=== PATIENT | female | born 1950 | race Caucasian/White ===

== ENCOUNTER 2022-03-22 13:07 | Outpatient (CLI) | payer MEDICARE, BC, SELFPAY ==
--- NOTE | 2022-03-22 17:00 | CRLHL7_ITS ---
For Patients: As a result of the 21st Century Cures Act, medical imaging exams and procedure reports are released immediately into your electronic medical record. You may view this report before your referring provider. If you have questions, please contact your health care provider. EXAM: PET-CT SKULL BASE TO THIGH CLINICAL INFORMATION: 72-yo female with a history of CLL. Suspected multiple myeloma. Patient is referred for further characterization. TECHNIQUE: Radiopharmaceutical: 13.34 mCi of 18F-FDG Uptake time: 55 minutes Blood glucose level at the time of injection: 83 mg/dL Field of view: Skull base to mid-thighs Intravenous contrast: Not administered Oral contrast: Not administered CT protocol: The low-dose, free-breathing, noncontrast CT performed as part of this study is designed for the purposes of attenuation correction and lesion localization, and it is neither sufficient, nor it should be substituted for diagnostic purposes. COMPARISON: PET-CT 01/11/2022 FINDINGS: Physiologic background liver standardized uptake value (SUV mean and SUV max) reported for comparison between PET studies: 2.8 and 3.2. Visualized head and neck: Physiologic uptake in the visualized portions of the brain, extraocular muscles, and salivary glands. Head and neck lymph nodes: Similar bilateral parotid/periparotid lymph nodes and bilateral mid upper cervical chain lymph nodes with variable, mildly decreased overall uptake. For example: -left level 2 lymph node, 0.9 cm short axis, SUV max 2.5. Previously 4.1. -right level 2 lymph node, 0.6 cm short axis, SUV max 3.1. Previously 4.2. Lungs: No new tracer avid pulmonary nodules or abnormal uptake. Dependent atelectasis. Benign calcified right lower lobe nodule. Thoracic lymph nodes: Calcified mediastinal and hilar lymph nodes without significant progression. Similar enlarged bilateral axillary lymph nodes and a small right supraclavicular lymph node with variable uptake. For example: -right supraclavicular lymph node, 0.5 cm short axis, SUV max 3.8 (fused PET-CT image 66). -left axillary lymph node, 1.4 cm short axis, SUV max 4.1. Previously 1.1 cm short axis, SUV max 5.1. -right axillary lymph node, 0.8 cm short axis, SUV max 2.9. Previously SUV max 3.5. -right lateral breast/axillary tail lymph node, 0.7 cm short axis, SUV max 1.9. Previously 0.7 cm, SUV max 3.4. Other chest findings: Scattered coronary vascular and thoracic aortic calcifications. Residual mild lower esophageal uptake is nonspecific, SUV max 3.0. Previously 3.3. Hepatobiliary: No abnormal uptake. Benign parenchymal calcifications. Spleen: No abnormal uptake. Benign parenchymal calcifications. The spleen measures 11.9 x 4.5 x 12.6 cm. Pancreas: No abnormal uptake. Adrenals: Within normal limits. Kidneys and bladder: No abnormal uptake. Unchanged lower pole right renal lesion with no uptake above adjacent cortex, possibly a cyst. Indeterminate. Bowel and peritoneum: No suspicious gastric or small bowel uptake or abnormality. Persistent uptake in the cecum could represent a polyp or avid colon lesion, SUV max 10.2 (fused PET-CT image 236). Previously 11.6. Consider direct visualization. Scattered uptake elsewhere in the adjacent small bowel and ascending colon demonstrates no noncontrast CT abnormality, possibly reactive/inflammatory. Colonic diverticulosis without inflammatory change. Pelvic organs: Prior hysterectomy. No abnormal uptake. Abdominopelvic lymph nodes: Small upper abdominal and upper retroperitoneal lymph nodes demonstrate no significant progression. Borderline common iliac and larger bilateral pelvic/external iliac lymph nodes demonstrate variable uptake. For example: -right common iliac lymph node, 0.9 cm short axis, SUV max 3.0. Previously 3.6. -left external iliac lymph node, 1.2 cm short axis, SUV max 3.4. Previously 3.6. -right external iliac lymph node, 1.2 cm short axis, SUV max 4.2. Previously 6.6. Musculoskeletal, soft tissues, skin: No aggressive osseous, lytic or expansile osseous lesions with abnormal uptake. Degenerative type uptake within the shoulders spine and hips.. -similar generalized uptake throughout the osseous structures of the spine, pelvis, thorax and prox extremities considered nonspecific low suggestive of marrow activation. Other: Scattered aortoiliac atherosclerotic vascular calcifications. IMPRESSION: 1. Avid bilateral cervical, axillary, lower retroperitoneal and bilateral pelvic/external iliac lymph nodes demonstrate [id number] uptake consistent with the given history of CLL. Largest lymph nodes for suitable for biopsy include left axillary region and bilateral external iliac lymph nodes as indicated. 2. Persistent moderately intense uptake in the cecum. Consider follow-up CT scan of the abdomen/pelvis with oral and IV contrast or direct visualization to further characterize this lesion. A small polyp or avid colon lesion is not excluded. 3. Marrow activation with generalized uptake throughout the bony structures with no aggressive, lytic or expansile bone lesions with abnormal uptake. If there is persistent clinical concern, consider MRI of the spine to evaluate marrow signal characteristics and enhancement. 4. Other nonacute findings as detailed in the body of the report. 4 Dictated by Demarco Chin MD @ 03/27/2022 3:52:39 PM (Electronically Signed)
== END 2022-03-22 13:08 | disposition home or self-care (01) ==
LOC: RAD 13:09
PROVIDERS: PCP Physician Assistant; Visit Provider Internal Medicine Hematology & Oncology
DX: R77.9 Abnormality of plasma protein, unspecified (principal)
CPT/HCPCS: 78815; A9552

== ENCOUNTER 2022-03-28 08:04 | Outpatient (RCR) | payer MEDICARE, BC, SELFPAY ==
[2022-03-12 09:55] LABS: Albumin 3.84 g/dL (3.75-5.01); Alpha 1 Globulin 0.46 g/dL (0.19-0.46); Alpha 2 Globulin 0.89 g/dL (0.48-1.05); Total Protein, Serum 7.9 g/dL (6.3-8.2)
--- NOTE | 2022-03-15 10:21 | ONC.NURNOTE ---
Patient in for SPEP and test was found to be concerning for Multiple Myeloma so additional testing ordered by Dr. Croft and patient called with plan. Patient also states she had a colonoscopy and they found 2 tumors that are NOT cancerous and need to be surgically removed. Patient to come in 03/16 for labs and 03/21 for PET with MD follow up hopefully following week.
[2022-03-16 10:53] LABS: Lactate Dehydrogenase* 519 U/L (313-618)
[2022-03-17 16:46] LABS: Beta-2-Microglob Serum/Plasma 6.6 mg/L (<=3.0)
[2022-03-17 23:41] LABS: Kappa Qnt Free Light Chains 17.03 mg/L (3.30-19.40); Kappa-Lambda Qt FLC W/ Ratio 0.06 (0.26-1.65); Lambda Qnt Free Light Chains 288.71 mg/L (5.71-26.30)
[2022-03-22 21:59] LABS: Free Urinary Kappa Excret/Day 41.81 mg/d; Free Urine Kappa Light Chains 43.55 mg/L (0.00-32.90); Hours Collected 24 hr; Total Volume 960 mL
--- NOTE | 2022-03-30 14:23 | ONC.NURNOTE ---
Addendum entered by Onelia Joseph, RN 04/04/22 09:52: Since oncologist is out of the office this week, TIN POURER gave clearance. [facility] was notified. Original Note: [facility] called office to ask if oncologist cleared patient for MAC sedation prior to bone marrow biopsy set up for 04/05. No clearance noted in note from 03/30/2022, remote mortgage underwriter left note for oncologist to see if willing to do this. Patient told [facility] that would be difficult to set up an appointment with primary care for clearance prior to her procedure d/t her schedule. Nursing to let [facility]gica know Dr. Croft's decision Saturday when she is in office.
== END 2022-04-01 23:59 | disposition home or self-care (01) ==
LOC: CCIC 08:04
PROVIDERS: Clinical Nurse Specialist; PCP Physician Assistant; Visit Provider Internal Medicine Hematology & Oncology
DX: C91.10 Chronic lymphocytic leukemia of B-cell type not having achieved remission (principal); D47.2 Monoclonal gammopathy
CPT/HCPCS: 36415; 82232; 83520; 83615; 84156; 84165; 86335; 99213; 99215

== ENCOUNTER 2022-04-05 06:25 | Outpatient (CLI) | payer MEDICARE, BC, SELFPAY ==
[2022-04-05 06:41] VITALS: BMI 25.3
[2022-04-05 06:45] VITALS: BP 152/58; PULSE 61; RESP 16; O2SAT 96
--- NOTE | 2022-04-05 07:42 | W.ANESCHARGE ---
Anesthesia Charges Start Date/Time Anesthesia Start Date: 04/05/22 Anesthesia Start Time: 07:10 Stop Date/Time Anesthesia Stop Date: 04/05/22 Anesthesia Stop Time: 07:40 Summary Emergency: No Extremes of Age: Over 71-CPT [id number]
[2022-04-05 07:45] VITALS: BP 108/66; PULSE 66; RESP 16; O2SAT 98
--- NOTE | 2022-04-05 07:52 | W.ANESCHARGE ---
Anesthesia Charges Start Date/Time Anesthesia Start Date: 04/05/22 Anesthesia Start Time: 07:10 Stop Date/Time Anesthesia Stop Date: 04/05/22 Anesthesia Stop Time: 07:40 Summary Emergency: No
[2022-04-05 07:57] VITALS: BP 121/71; PULSE 61; RESP 16; O2SAT 98
[2022-04-05 07:57] LABS: Basophils Percent Auto 0.4 % (0.0-3.0); Eosinophils Percent Auto 2.1 % (0.0-7.0); Hematocrit 29.1 % (33.0-51.0); Hemoglobin* 9.2 gm/dL (12.0-16.0); Immature Granulocytes Abs Auto 0.03 K/uL (0.00-0.30); Immature Reticulocyte Fraction 12.2 % (3.0-15.9); Lymphocytes Percent Auto 67.6 % (20-44); Mean Corpuscular HGB Conc 32 gm/dL (32-36); Mean Corpuscular Hemoglobin 31 pg (26-34); Mean Corpuscular Volume 97 fL (80-100); Monocytes Percent Auto 5.9 % (0.0-11.0); Neutrophils Percent Auto 23.8 % (42.0-72.0); Platelet Count* 195 K/uL (140-440); RDW Coefficient of Variation % 13.1 % (11.5-15.5); Red Blood Count 2.99 m/uL (4.00-5.20); Reticulocyte Hemoglobin Equivi 30.9 pg (29.0-35.0); Reticulocyte Percent 1.6 % (0.5-2.0); Reticulocytes Absolute 0.05 # (0.03-0.08); White Blood Count* 12.45 K/uL (4.50-11.00)
[2022-04-05 08:28] VITALS: BP 146/76; PULSE 61; RESP 16; O2SAT 98
[2022-04-05 08:44] LABS: Slide Review Reflex Yes
[2022-04-05 08:45] LABS: Slide Review Acceptable Review (Acceptable)
== END 2022-04-05 08:47 | disposition home or self-care (01) ==
PROVIDERS: Surgery; PCP Physician Assistant; Visit Provider Pathology Anatomic Pathology & Clinical Pathology
DX: C91.10 Chronic lymphocytic leukemia of B-cell type not having achieved remission (principal)
CPT/HCPCS: 01112; 36415; 38222; 85025; 85045; 88184; 88185; 88237; 88264; 88271; 88275; 88305; 88311; 88313; 88341; 88342; 88364; 88365; 99100; J1644; J2001; J2704

== ENCOUNTER 2022-04-12 09:22 | Outpatient (CLI) | payer MEDICARE, BC, SELFPAY ==
--- NOTE | 2022-04-12 09:26 | CRLHL7_ITS ---
For Patients: As a result of the Century Cures Act, medical imaging exams and procedure reports are released immediately into your electronic medical record. You may view this report before your referring provider. If you have questions, please contact your health care provider. Technique: Double contrast barium enema performed. Fluoroscopy time 2 minutes 25 seconds. Indication: SIGMOID NARROWING Comparison: CT-PET 03/22/2022. Findings: Lithographic Plate Maker Apprentice image reveals no bowel obstruction. Adequate prep. No obstruction to the flow of contrast. No obstructing lesion. Extensive sigmoid diverticulosis noted with multifocal areas of luminal narrowing, best visualized on the left lateral decubitus film 2. The diverticular disease extends to the left colon. No acute inflammation or fistula. Normal opacification of the remaining colon. Impression: Extensive sigmoid and left colon diverticular disease with areas of luminal narrowing without obstruction. Dictated by Gael Parra MD @ 04/12/2022 11:27:45 AM (Electronically Signed)
== END 2022-04-12 09:23 | disposition home or self-care (01) ==
LOC: RAD 09:24
PROVIDERS: PCP Physician Assistant; Visit Provider Surgery
DX: K56.609 Unspecified intestinal obstruction, unspecified as to partial versus complete obstruction (principal); K57.90 Diverticulosis of intestine, part unspecified, without perforation or abscess without bleeding
CPT/HCPCS: 74280

== ENCOUNTER 2022-05-10 11:02 | Outpatient (CLI) | payer MEDICARE, BC, SELFPAY | END 2022-05-10 11:03 | disposition home or self-care (01) | LOC: OP CLINIC 11:05 | PROVIDERS: PCP Physician Assistant; Visit Provider Surgery | DX: R93.3 Abnormal findings on diagnostic imaging of other parts of digestive tract (principal) | CPT/HCPCS: 45330; J2250; J3010 ==

== ENCOUNTER 2022-05-22 06:08 | Inpatient (IN) | payer MEDICARE, BC, SELFPAY ==
[2022-05-22] VITALS (23 sets, daily range): BP systolic 120–164; BP diastolic 53–81; PULSE 47–97; RESP 14–20; TEMP 35.8–38.2; O2SAT 92–100; BMI 25.2
--- OUTSIDE RECORDS SUMMARY | 2022-05-22 06:12 | XMS_ITS | Encounter Summary ---
:1950 Author Organization [facility] Address [address] [place] [address] Care Team Providers Name Role Phone Unavailable Primary Care Provider Unavailable Encounter Details Date Type Department Care Team Description 04/23/2022 Hospital Encounter Department of Delmis Sotelo M.D., Multip le Myeloma Not Having Achieved Remission (HCC); Laboratory Medicine Ph.D. 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); and Pathology, [address] [place] [address] Tumor Cecum Villous [facility], in [place], [place] [address] [place] [address] [place], [place] (Work) [phone] Social History Tobacco Use Types Packs/Day Years Used Date Smoking Tobacco: Never Sex Assigned at Date Recorded Not on file documented as of this encounter Medications at Time of Discharge Medication Sig Dispensed Refills Start Date End Date whgppwf-lplbtjcmyspfc-xkbu Take 1 tablet by 0 eine (EXCEDRIN MIGRAINE) mouth every 6 (six) 250-250-65 mg per tablet hours as needed for pain. biotin 1 mg tablet Take by mouth daily. 0 cholecalciferol, vitamin Take by mouth. 0 D3, (D3-2000 ORAL) magnesium Take by mouth. 0 B-vpeodt-lgnpctqkycd 42 mg (500 mg)- 250 mg tablet extended release mecobalamin (B12 ACTIVE Take by mouth. 0 ORAL) potassium chloride Take 20 mEq by mouth. 0 (KLOR-CON) 20 mEq packet UNABLE TO FIND Tumeric & Chelle 0 documented as of this encounter Plan of Treatment Not on filedocumented as of this encounter Procedures Procedure Name Priority Date/Time Associated Comments Diagnosis RETICULOCYTE PROFILE, B Routine 04/23/2022 4:35 Leukemia R esults for this PM CDT Lymphocytic Chronic procedur e are in Not Having Achieved the resu lts Remission (HCC) section. MONOCLONAL GAMMOPATHY Routine 04/23/2022 4:35 Multiple Myeloma Results for this DIAGNOSTIC, S PM CDT Not Having Achieved procedu re are in Remission (HCC) the results Leukemia section. 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 HEMATOPATHOLOGY REVIEW Routine 04/23/2022 4:35 Re sults for this PM CDT procedure are i n the results section. MORPHOLOGY EVAL (SPECIAL Routine 04/23/2022 4:35 Results for this SMEAR) PM CDT procedure are i n the results section. CBC NO CALL BACK, REFLEX Routine 04/23/2022 4:35 Multiple Myel moise Results for this T/S PM CDT Not Having Achieved procedur e are in Remission (HCC) the results Leukemia section. 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 IMMUNOGLOBULINS (IGG, Routine 04/23/2022 4:35 Multiple Myeloma Results for this IGA, AND IGM), S PM CDT Not Having Achieved proc edure are in Remission (HCC) the results Leukemia section. 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 CD49D CELL EXPRESSION Routine 04/23/2022 10:02 Re sults for this EVALUATION, VARIES AM CDT procedure are in the results section. documented in this encounter Results Direct Antiglobulin Test (Polyspecific) (04/23/2022 4:35 PM CDT) [facility] Method Time Signature Direct Negative Negative 04/23/2022 DTL Antiglobulin 8:23 PM CDT Test, Polyspecific Comment: If clinical suspicion of Hemolytic Anemi [place], [place] [phone] for more information. Specimen Anatomical Collection Method Collection Time Receive d Time (Source) Location / / Volume Laterality Blood 04/23/2022 4:35 PM 2 5:02 CDT PM CDT Delmis Sotelo M.D., Ph.D. LAB BLOOD BANK TEST ORDERABL ES Performing Organization Address City/[facility] Phon e Number [facility] - [address] [place], [place] [address] [facility] [address] (ABNORMAL) Morphology Evaluation (Special smear) (04/23/2022 4:35 PM CDT) Analysis Performed At Patho logist Time Signature Neutrophilic Segs 34 (L) 50 - 75 % 04/24/2022 [facility] 11:33 AM CDT Lymphocytes 57 (H) 18 - 42 % 04/24/2022 PM 11:33 AM CDT Monocytes 5 2 - 11 % 04/24/2022 [facility] 11:33 AM CDT Eosinophils 3 1 - 3 % 04/24/2022 [facility] 11:33 AM CDT Basophils 1 0 - 2 % 04/24/2022 [facility] 11:33 AM CDT Fragile Cells Slight 04/24/2022 [facility] 11:33 AM CDT Manual Absolute 5.30 1.56 - 04/24/2022 [facility] Neutrophil Count 6.45 11:33 AM CDT x10(9)/L Comment: ----ADDITIONAL INFORMATION---- The manual absolute neutrophil count is derived from a manual differential count and therefore is not exactly comparable to the automated absolute rohit trophil count. Specimen Anatomical Collection Method Collection Time Receive d Time (Source) Location / / Volume Laterality Blood 04/23/2022 4:35 PM 2 4:57 CDT PM CDT Delmis Sotelo M.D., Ph.D. LAB PATHOLOGY/CYTOLOGY ORDER NOEMI Performing Organization Address City/[facility] Code Phon e Number [facility] - [address] [place], [place] [address] [facility] [place] [address] Hematopathology Review (04/23/2022 4:35 PM CDT) Component Value Ref Test Analysis Performed At Patholo gist Range Method Time Signature 04/25/2022 [facility] 2:02 PM CDT Report Graham Robles D.O. M.S. 022 [facility] electronically 2:02 PM CDT signed by I verify that I have examined all relevant slides/materials for the specimen(s) and rendered or confirmed the diagnosis. Interpretation The morphologic and flow cytometric findings support a 04/25/2022 [facility] diagnosis of chronic lymphocytic leukemia (CLL). 2:02 PM CDT Specimen Anatomical Collection Method Collection Time Receive d Time (Source) Location / / Volume Laterality Blood 04/23/2022 4:35 PM 4:57 CDT PM CDT Delmis Sotelo M.D., Ph.D. LAB PATHOLOGY/CYTOLOGY ORDER NOEMI Performing Organization Address City/[facility] Phon e Number [address] [place] [id number] Laboratories-[address] (ABNORMAL) Reticulocyte Profile (04/23/2022 4:35 PM CDT) [facility] Method Time Signature Reticulocytes, B 1.81 0.60 - 04/23/2022 DTL 2.71 % 5:06 PM CDT Absolute 69.0 30.4 - 04/23/2022 DTL Reticulocyte 110.9 5:06 PM CDT x10(9)/L Immature 12.7 3.0 - 04/23/2022 DTL Reticulocyte 15.9 % 5:06 PM CDT Fraction Reticulocyte 33.4 30.0 - 04/23/2022 DTL Hemoglobin 37.6 pg 5:06 PM CDT Erythrocytes 3.81 (L) 3.92 - 04/23/2022 DTL 5.13 5:06 PM CDT x10(12)/L Specimen Anatomical Collection Method Collection Time Receive d Time (Source) Location / / Volume Laterality Blood (Blood, 04/23/2022 4:35 PM 04/23/20 4:57 Venous) CDT PM CDT Delmis Sotelo M.D., Ph.D. LAB BLOOD ADD-ON Performing Organization Address City/[facility] Phon e Number [facility] - [address] [place] [address] [facility] [address] Laboratories-[facility] 200 [facility] Direct Antiglobulin Test (Poly) (04/23/2022 4:35 PM CDT) [facility] Method Time Signature Direct See Addl Negative 04/23/2022 ET Antiglobulin Testing 8:23 PM CDT Test, Polyspecific Specimen Anatomical Collection Method Collection Time Receive d Time (Source) Location / / Volume Laterality Blood (Blood, 04/23/2022 4:35 PM 04/23/20 5:02 Venous) CDT PM CDT Delmis Sotelo M.D., Ph.D. LAB BLOOD BANK TEST ORDERABL ES Performing Organization Address City/[facility] Phon e Number [address] [address] [facility] [place] [address] Laboratories-[facility] 200 [facility] (ABNORMAL) Immunoglobulins (IgG, IgA, and IgM) (04/23/2022 4:35 PM CDT) [facility] Method Time Signature Immunoglobulin A 32 (L) 61 - 356 04/24/2022 [facility] (IgA), S mg/dL 9:28 AM CDT Immunoglobulin M 5 (L) 37 - 286 04/24/2022 [facility] (IgM), S mg/dL 10:46 AM CDT Immunoglobulin G 2620 (H) 767 - 04/24/2022 [facility] (IgG), S 1590 10:46 AM CDT mg/dL Specimen Anatomical Collection Method Collection Time Receive d Time (Source) Location / / Volume Laterality Blood (Blood, 04/23/2022 4:35 PM 04/24/20 7:04 Venous) CDT AM CDT Delmis Sotelo M.D., Ph.D. LAB BLOOD ADD-ON Performing Organization Address City/State/ZIP Code Phon e Number [facility] [address] [place] [address] [facility] [place] [address] Laboratory Medicine and Pathology [address] GARCIA Uric Acid (04/23/2022 4:35 PM CDT) athologist Signature Uric Acid, S 5.9 2.7 - 6.1 04/23/2022 DTL mg/dL 5:39 PM CDT Specimen Anatomical Collection Method Collection Time Receive d Time (Source) Location / / Volume Laterality Blood (Blood, 04/23/2022 4:35 PM 04/23/20 5:21 Venous) CDT PM CDT Delmis Sotelo M.D., Ph.D. LAB BLOOD ADD-ON Performing Organization Address City/State/ZIP Code Phon e Number [facility] - [address] [place], [place] [address] [place] [address] [facility] Sodium (04/23/2022 4:35 PM CDT) P athologist Signature Sodium, S 138 135 - 145 04/23/2022 5:39 DTL mmol/L PM CDT Specimen Anatomical Collection Method Collection Time Receive d Time (Source) Location / / Volume Laterality Blood (Blood, 04/23/2022 4:35 PM 04/23/20 5:21 Venous) CDT PM CDT Delmis Sotelo M.D., Ph.D. LAB BLOOD ADD-ON Performing Organization Address City/[facility]/ZIP Code Phon e Number [facility] [address] [place], [place] [address] [place] [address] Potassium (04/23/2022 4:35 PM CDT) P athologist Signature Potassium, S 4.5 3.6 - 5.2 04/23/2022 DTL mmol/L 5:39 PM CDT Specimen Anatomical Collection Method Collection Time Receive d Time (Source) Location / / Volume Laterality Blood (Blood, 04/23/2022 4:35 PM 04/23/20 5:21 Venous) CDT PM CDT Delmis Sotelo M.D., Ph.D. LAB BLOOD ADD-ON Performing Organization Address City/State/ZIP Code Phon e Number [facility] - [address] [place], [place] [address] [facility] [address] [facility] [address] [facility] Plasma Cell Assessment (04/23/2022 4:35 PM CDT) Component Value Ref Test Analysis Performed At Patholo gist Range Method Time Signature Blood Plasma Cell No monotypic 04/24/2022 DTL Light Chain plasma cells 12:23 PM CDT PC Event No monotypic plasma cells id entified. ??Previous therapy targeting plasma cell 04/24/2022 DTL Interpretation antigens can interfere with this assay's performance. 12:23 PM CDT Monotypic kappa B cells are also present. Reviewed by: Graham Robles D.O., M.S. Comment: ----ADDITIONAL INFORMATION---- Plasma cell analysis was performed with antibodies to the following antigens: CD19, CD38, CD45, CD138 and kappa and la mbda cytoplasmic immunoglobulin light chains. ?? This test was developed using an analyte specific reagent. Its performance characteristics were determined by [facility] in a manner consistent with CLIA requirements. This test has not bee n cleared or approved by the U.S. Food and Drug Administration. Specimen Anatomical Collection Method Collection Time Receive d Time (Source) Location / / Volume Laterality Blood (Blood, 04/23/2022 4:35 PM 04/23/20 22 5:20 Venous) CDT PM CDT Narrative This result has an attachment that is no t available. Delmis Sotelo M.D., Ph.D. LAB BLOOD NON ADD-ON Performing Organization Address City/[facility]/ZIP Code Phon e Number [facility] - [address] [address] [facility] [address] [facility] (ABNORMAL) Phosphorus Inorganic (04/23/2022 4:35 PM CDT) P athologist Signature Phosphorus 4.9 (H) 2.5 - 4.5 04/23/2022 DTL (Inorganic), S mg/dL 5:39 PM CDT Specimen Anatomical Collection Method Collection Time Receive d Time (Source) Location / / Volume Laterality Blood (Blood, 04/23/2022 4:35 PM 04/23/20 22 5:21 Venous) CDT PM CDT Delmis Sotelo M.D., Ph.D. LAB BLOOD ADD-ON Performing Organization Address City/[facility]/ZIP Code Phon e Number [facility] - [address] [place] [address] Laboratories-[facility] [address] (ABNORMAL) Monoclonal Gammopathy Diagnostic (04/23/2022 4:35 PM CDT) Component Value Ref Range Test Analysis Performed Pathologis t Method Time At Signature Therapeutic No 04/24/2022 [facility] Antibody 6:42 AM CDT Administered? Total Protein, 8.0 (H) 6.3 - 7.9 04/24/2022 [facility] S g/dL 7:52 AM CDT Renova Free 1.16 0.3300 - 04/24/2022 [facility] Light Chain, S 1.94 mg/dL 12:25 PM CDT Lambda Free 17.7 (H) 0.5700 - 04/24/2022 [facility] Light Chain, S 2.63 mg/dL 12:40 PM CDT Renova/Lambda 0.0655 (L) 0.2600 - 04/24/2022 [facility] FLC Ratio 1.65 12:40 PM CDT Albumin 3.5 3.4 - 4.7 04/24/2022 [facility] g/dL 10:49 PM CDT Alpha-1 0.3 0.1 - 0.3 04/24/2022 [facility] Globulin g/dL 10:49 PM CDT Alpha-2 1.1 (H) 0.6 - 1.0 04/24/2022 [facility] Globulin g/dL 10:49 PM CDT Beta-Globulin 1.0 0.7 - 1.2 04/24/2022 [facility] g/dL 10:49 PM CDT Gamma-Globulin 2.1 (H) 0.6 - 1.6 04/24/2022 [facility] g/dL 10:49 PM CDT A/G Ratio 0.79 04/24/2022 [facility] 10:49 PM CDT M spike 1.9 (H) g/dL 04/24/2022 [facility] 10:49 PM CDT Impression M-spike in gamma fraction. 04/24/2022 S [facility] 10:49 PM See Isotype. CDT Flag, Positive (A) Negative 04/25/2022 [facility] M-protein 9:08 AM CDT Isotype M-protein IgG lambda, monoclonal. ~C/W MGUS, myeloma, amyloidosis, etc. ~For MGUS patients the following risk estimates apply: IF YOUR PATIENT IS DIAGNOSED WITH MGUS, there is approximately a 2% per year risk of progression to myeloma or related malignancy. 04/25/2022 [facility] Isotype ~Suggest 24-hr urine Monoclonal Protein Studies. 9:08 AM CDT MALDI-TOF MS Comment: ----ADDITIONAL INFORMATION---- The submitted sample was assayed by five separate immunopurifications for IgG, IgA, IgM, kappa and lambda. ??The r esult reflects the findings of either no monoclonal protein detected or those monoclonal immunoglobulins that were detected. This test was developed and its performa nce characteristics determined by [facility] in a manner consistent with CLIA requirements. This test has not been cleared or approved by the U.S. Savi d and Drug Administration. Specimen Anatomical Collection Method Collection Time Receive d Time (Source) Location / / Volume Laterality Blood (Blood, 04/23/2022 4:35 PM 04/24/20 6:40 Venous) CDT AM CDT Narrative [facility] SUPPORT JENNIFER R - 04/25/2022 9:08 AM CDT Specimen Information: Specimen ID: [id number] Specimen Type: Blood Specimen Collection Start Date: 04/23/20 ??4:35 PM Specimen Received Date: 04/24/2022 ??6:4 0 AM Specimen ID: [id number] Specimen Type: Blood Specimen Collection Start Date: 04/23/20 ??4:35 PM Specimen Received Date: 04/24/2022 ??6:4 2 AM Delmis Sotelo M.D., Ph.D. LAB BLOOD ADD-ON Performing Organization Address City/State/ZIP Code Phon e Number [facility] [address] GARC[place], [place] [address] [place] [address] Laboratory Medicine and Pathology [address] [place] [address] Dr. RADHA MCCOY (Lactate Dehydrogenase) (04/23/2022 4:35 PM CDT) Analysis Performed At Patho logist Time Signature Lactate 215 122 - 222 04/23/2022 DTL Dehydrogenase U/L 5:39 PM CDT (LD), S Specimen Anatomical Collection Method Collection Time Receive d Time (Source) Location / / Volume Laterality Blood (Blood, 04/23/2022 4:35 PM 04/23/20 5:21 Venous) CDT PM CDT Delmis Sotelo M.D., Ph.D. LAB BLOOD NON ADD-ON Performing Organization Address City/[facility] Phon e Number [facility] - [address] [place], [place] [address] [place] [address] [place] [address] Laboratories-[address] Glucose, Fasting (04/23/2022 4:35 PM CDT) P athologist Signature Glucose, P 92 70 - 100 04/23/2022 DTL mg/dL 5:35 PM CDT Last Intake 22 hr 04/23/2022 DTL 5:18 PM CDT Specimen Anatomical Collection Method Collection Time Receive d Time (Source) Location / / Volume Laterality Blood (Blood, 04/23/2022 4:35 PM 04/23/20 5:18 Venous) CDT PM CDT Delmis Sotelo M.D., Ph.D. LAB BLOOD NON ADD-ON Performing Organization Address City/[facility] Phon e Number [facility] - [address] [place], [place] [address] [place] [address] Laboratories-[address] (ABNORMAL) Creatinine with Estimated GFR (04/23/2022 4:35 PM CDT) Analysis Performed At Patho logist Time Signature Creatinine 1.22 (H) 0.59 - 04/23/2022 DTL 1.04 mg/dL 5:39 PM CDT eGFR-Non 45 (L) >=60 04/23/2022 DTL Black/ mL/min/BSA 5:39 PM CDT [place]ian Comment: ----ADDITIONAL INFORMATION---- Estimated GFR calculated using the 2009 CKD_EPI creatinine equation. eGFR-Black/ 52 (L) >=60 mL/min/BSA 2021 5:39 PM CDT DTL Comment: ----ADDITIONAL INFORMATION---- Estimated GFR calculated using the 2009 CKD_EPI creatinine equation. Specimen Anatomical Collection Method Collection Time Receive d Time (Source) Location / / Volume Laterality Blood (Blood, 04/23/2022 4:35 PM 04/23/20 5:21 Venous) CDT PM CDT Delmis Sotelo M.D., Ph.D. LAB BLOOD ADD-ON Performing Organization Address City/[facility] Phon e Number [facility] - [address] CRP (C-Reactive Protein) (04/23/2022 4:35 PM CDT) P athologist Signature C-Reactive 7.4 <=8.0 mg/L 04/23/2022 DTL Protein (CRP), 5:39 PM CDT S Specimen Anatomical Collection Method Collection Time Receive d Time (Source) Location / / Volume Laterality Blood (Blood, 04/23/2022 4:35 PM 04/23/20 5:21 Venous) CDT PM CDT Delmis Sotelo M.D., Ph.D. LAB BLOOD ADD-ON Performing Organization Address [facility] Phon e Number [facility] - [address] (ABNORMAL) CBC no call back, reflex T/S HGB <8 (04/23/2022 4:35 PM CDT) Patholo gist Method Time Signature Hemoglobin 11.6 11.6 - 04/23/2022 DTL 15.0 g/dL 5:06 PM CDT Hematocrit 37.4 35.5 - 04/23/2022 DTL 44.9 % 5:06 PM CDT Erythrocytes 3.81 (L) 3.92 - 04/23/2022 DTL 5.13 5:06 PM CDT x10(12)/L MCV 98.2 (H) 78.2 - 04/23/2022 DTL 97.9 fL 5:06 PM CDT RBC Distrib 12.8 12.2 - 04/23/2022 DTL Width 16.1 % 5:06 PM CDT Platelet Count 261 157 - 371 04/23/2022 DTL x10(9)/L 5:06 PM CDT Leukocytes 15.6 (H) 3.4 - 9.6 04/23/2022 DTL x10(9)/L 5:06 PM CDT Neutrophils SeeComment 1.56 - 04/23/2022 DTL 6.45 6:17 PM CDT x10(9)/L Comment: Auto-diff results not valid. Se e manual differential. Specimen Anatomical Collection Method Collection Time Receive d Time (Source) Location / / Volume Laterality Blood (Blood, 04/23/2022 4:35 PM 04/23/20 4:57 Venous) CDT PM CDT Delmis Sotelo M.D., Ph.D. LAB BLOOD NON ADD-ON Performing Organization Address City/[facility] Phon e Number [facility] [address] Calcium, Total (04/23/2022 4:35 PM CDT) athologist Signature Calcium, Total, 10.1 8.8 - 10.2 04/23/2022 DTL S mg/dL 5:39 PM CDT Specimen Anatomical Collection Method Collection Time Receive d Time (Source) Location / / Volume Laterality Blood (Blood, 04/23/2022 4:35 PM 04/23/20 5:21 Venous) CDT PM CDT Delmis Sotelo M.D., Ph.D. LAB BLOOD ADD-ON Performing Organization Address City/[facility]/ZIP Code Phon e Number [facility] 200 [place], [place] [address] [place] [id number] [place] [address] (ABNORMAL) BUN (Blood Urea Nitrogen) (04/23/2022 4:35 PM CDT) P athologist Signature BUN (Blood Urea 27 (H) 6 - 21 04/23/2022 DTL Nitrogen), S mg/dL 5:39 PM CDT Specimen Anatomical Collection Method Collection Time Receive d Time (Source) Location / / Volume Laterality Blood (Blood, 04/23/2022 4:35 PM 04/23/20 5:21 Venous) CDT PM CDT Delmis Sotelo M.D., Ph.D. LAB BLOOD ADD-ON Performing Organization Address City/[facility]/ZIP Code Phon e Number [facility] - 200 [place], [place] [address] [place] [address] Bilirubin, Total (04/23/2022 4:35 PM CDT) athologist Signature Bilirubin, 0.4 <=1.2 mg/dL 04/23/2022 DTL Total, S 5:39 PM CDT Specimen Anatomical Collection Method Collection Time Receive d Time (Source) Location / / Volume Laterality Blood (Blood, 04/23/2022 4:35 PM 04/23/20 5:21 Venous) CDT PM CDT Delmis Sotelo M.D., Ph.D. LAB BLOOD ADD-ON Performing Organization Address City/[facility]/ZIP Code Phon e Number [facility] - [address] Bilirubin, Direct (04/23/2022 4:35 PM CDT) athologist Signature Bilirubin, <0.2 0.0 - 0.3 04/23/2022 DTL Direct, S mg/dL 5:39 PM CDT Specimen Anatomical Collection Method Collection Time Receive d Time (Source) Location / / Volume Laterality Blood (Blood, 04/23/2022 4:35 PM 04/23/20 5:21 Venous) CDT PM CDT Delmis Sotelo M.D., Ph.D. LAB BLOOD ADD-ON Performing Organization Address City/State/ZIP Code Phon e Number [facility] - 200 [place], [place] [address] Bicarbonate (04/23/2022 4:35 PM CDT) athologist Signature Bicarbonate, S 24 22 - 29 04/23/2022 DTL mmol/L 5:39 PM CDT Specimen Anatomical Collection Method Collection Time Receive d Time (Source) Location / / Volume Laterality Blood (Blood, 04/23/2022 4:35 PM 04/23/20 5:21 Venous) CDT PM CDT Delmis Sotelo M.D., Ph.D. LAB BLOOD ADD-ON Performing Organization Address City/[facility]/ZIP Code Phon e Number [facility] - [address] [place], [place] [address] [place] [address] [facility] [address] [facility] (ABNORMAL) Scpe-3-Dxgklohpsfhac (Beta-2-M) (04/23/2022 4:35 PM CDT) athologist Signature Cxhf-9-Tbwedie 5.70 (H) 1.21 - 04/24/2022 [facility] obulin, S 2.70 8:31 AM CDT mcg/mL Specimen Anatomical Collection Method Collection Time Receive d Time (Source) Location / / Volume Laterality Blood (Blood, 04/23/2022 4:35 PM 04/24/20 7:04 Venous) CDT AM CDT Delmis Sotelo M.D., Ph.D. LAB BLOOD ADD-ON Performing Organization Address City/[facility]/ZIP Code Phon e Number [facility] [address] [place], [place] [address] [facility] [place] [address] Laboratory Medicine and Pathology [address] [place] AST (Aspartate Aminotransferase) (04/23/2022 4:35 PM CDT) [facility] gist Method Time Signature Aspartate 26 8 - 43 04/23/2022 DTL Aminotransferase U/L 5:39 PM CDT (AST), S Specimen Anatomical Collection Method Collection Time Receive d Time (Source) Location / / Volume Laterality Blood (Blood, 04/23/2022 4:35 PM 04/23/20 5:21 Venous) CDT PM CDT Delmis Sotelo M.D., Ph.D. LAB BLOOD ADD-ON Performing Organization Address City/[facility]/ZIP Code Phon e Number [facility] - [address] [place], [place] [address] [place] [address] [facility] [address] [facility] Alkaline Phosphatase (04/23/2022 4:35 PM CDT) P athologist Signature Alkaline 67 35 - 104 04/23/2022 DTL Phosphatase, S U/L 5:39 PM CDT Specimen Anatomical Collection Method Collection Time Receive d Time (Source) Location / / Volume Laterality Blood (Blood, 04/23/2022 4:35 PM 04/23/20 5:21 Venous) CDT PM CDT Delmis Sotelo M.D., Ph.D. LAB BLOOD ADD-ON Performing Organization Address City/[facility]/ZIP [facility] Phon e Number [facility] - [address] [place], [place] [address] [facility] [address] [facility] [address] (ABNORMAL) 25-Hydroxyvitamin D2 and D3 (04/23/2022 4:35 PM CDT) athologist [facility] 25-Hydroxy D2 <4.0 ng/mL 04/24/2022 SDS 10:10 PM CDT 25-Hydroxy D3 88 ng/mL 04/24/2022 SDSC 10:10 PM CDT 25-Hydroxy D 88 (H) ng/mL 04/24/2022 [facility] Total 10:10 PM CDT Comment: Interpretation: >80 ng/mL (toxicity poss ible) ----REFERENCE VALUE---- 25-HYDROXY D TOTAL (D2+D3) Optimum level s in the healthy population are 20-50, patients with bone disease may benefit from higher levels within this r karla. ----ADDITIONAL INFORMATION---- This test was developed and its performa nce characteristics determined by [facility] in a manner consistent with CLIA requirements. This test has not been cleared or approved by the U.S. Savi d and Drug Administration. Specimen Anatomical Collection Method Collection Time Receive d Time (Source) Location / / Volume Laterality Blood (Blood, 04/23/2022 4:35 PM 04/24/20 7:42 Venous) CDT AM CDT Delmis Sotelo M.D., Ph.D. LAB BLOOD ADD-ON Performing Organization Address City/[facility] Phon e Number [facility] [address] [place], [place] [address] [facility] [place] [address] Laboratory Medicine and Pathology [address] [place] Leukemia/Lymphoma Immunophenotyping by Flow Cytometry, Blood (04/23/2022 4:30 PM CDT) Component Value Ref Test Analysis Performed Pathologis t Range Method Time At [facility] LCMSB Result Performed 04/25/2022 DTL 1:55 PM CDT Final These results are considered preliminary and require complete integration 04/25/2022 DTL Diagnosis: with the current pathology c ase [id number] for final interpretation. ??The 1:55 PM result should NOT be interpreted in isolation for the purposes of diagnosis CDT or clinical management. Peripheral blood, flow cytometric immunophenotypin. Chronic lymphocytic leukemia, kappa light chain restricte d. 2. A minute lambda light chain restricted B-cell popul ation is detected that represents approximately 3% of the total analyzed even ts. ??The significance of this finding is uncertain. ??It does not necessaril y indicate involvement by a lymphoproliferative disorder. Reviewed by: Graham Robles D.O., M.S. Special WBC: ??15.6 x 10(9)/L 04/25/2022 DTL Studies: %Lymphs (CBC/automated differential): ??57% 1:55 PM #Lymphs (CBC/automated differential): ??8.9 x 10(9)/L CDT Results: Blasts: ??Not increased by CD45/side scatter and CD34. B-cells: ??Two monotypic B-cell populations are present. Population 1: ??Monotypic (cytoplasmic) kappa Express: ??CD19, CD20 (dim), CD22, CD5, CD23, CD200. Do not express: ??CD10, CD38, CD11c, CD103. Estimated size: ??74% gated lymphoid events; 47% total jigar zed events Absolute clonal B-cell count (calculated): ??6.6 x 10(9)/L Population 2: ??Monotypic (cytoplasmic) lambda Express: ??CD19, CD20, CD22, CD200. Do not express: ??CD5, CD10, CD23, CD38, CD11c, CD103. Estimated size: ??4% gated lymphoid events; 3% total analyze d events B-cell markers tested: B-cell panel: CD5, CD11c, CD19, CD20, CD22, CD23, CD38, CD45, CD103, CD200 and kappa and lambda surface light chains. Cytoplasmic kappa and lambda immunoglobulin ligh t chains. Triage panel: CD10, CD19, CD45 and kappa and lambda surface light chains. T-cells/NK-cells: ??No aberrant phenotype by CD3 and CD16. Quality Assessment: ??Specimen received within validated jessica delines. Microscopic A Xgtraa-Jdlyyr-vbqkpyf slid e prepared from the flow cytometry specimen is 04/25/2022 DTL Description examined. ??The specimen con tains small lymphocytes with round nuclear 1:55 PM contours, coarsely clumped chromatin and inconspicuous nucle artem. CDT Comment: ----ADDITIONAL INFORMATION---- This test was developed using an analyte specific reagent. Its performance characteristics were determined by [facility] in a manner consistent with CLIA requirements. This test has not bee n cleared or approved by the U.S. Food and Drug Administration. Specimen Anatomical Collection Method Collection Time Receive d Time (Source) Location / / Volume Laterality Blood 04/23/2022 4:30 PM 2 CDT 12:10 PM CDT Narrative This result has an attachment that is no t available. Delmis Sotelo M.D., Ph.D. LAB GENETIC TESTING Performing Organization Address City/State/[facility] Code Phon e Number [facility] - [address] [place] [address] [facility] [address] [facility] 200 [facility] CD49d Cell Expression Evaluation, V (04/23/2022 10:02 AM CDT) [facility] Method Time Signature CEE49 Result Performed 04/25/2022 DT 1:55 PM CDT CEE49 Final Peripheral blood, ??flow cytometric immunophenotypin04/25/2022 DT Diagnosis 1:55 PM CDT CD49d is ??not expressed ??( 8 %) on FS39-yippep ve B cells (30% is the cutoff used for positivity). Cell Expression Evaluation panel: CD3, CD19, CD45 and CD49d. Reviewed by: ??Graham Reina.Emilee., M.S. Comment: ----ADDITIONAL INFORMATION---- This test was developed using an analyte specific reagent. Its performance characteristics were determined by [facility] in a manner consistent with CLIA requirements. This test has not bee n cleared or approved by the U.S. Food and Drug Administration. Specimen Anatomical Collection Method Collection Time Receive d Time (Source) Location / / Volume Laterality Varies 04/23/2022 10:02 04/25/2022 AM CDT 10:02 AM CDT Narrative This result has an attachment that is no t available. Delmis Sotelo M.D., Ph.D. 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
--- OUTSIDE RECORDS SUMMARY | 2022-05-22 06:12 | XMS_ITS | Encounter Summary ---
:1950 Author Organization [facility] Address [address] [place] [address] Care Team Providers Name Role Phone Unavailable Primary Care Provider Unavailable Reason for Visit Outpatient (Routine) - Closed Specialty Diagnoses / Procedures Referred By Contact Refer red To Contact Colon and Rectal Diagnoses Multiple Myeloma Not Having Achieved Remission (HCC) Delmis Sotelo M.D., Ph.D. [facility] Procedures Colon and Rectal Surgery - Rectal cancer eConsult [address] [place] [phone] Referral ID Status Reason Start Date Expiration Date Visits Requ ested Visits Authorized [id number] Closed 04/26/2022 04/26/2023 1 1 Encounter Details Date Type Department Care Team Description 04/30/2022 Internal E-Consult Division of Panfilo Kelly Myeloma Not and Rectal Surgery Autumn Chirinos, Ch.B., Having Achieved in [facility] Remission (HCC) [address] [place] [phone] Social History Tobacco Use Types Packs/Day Years Used Date Smoking Tobacco: Never Sex Assigned at Date Recorded Not on file documented as of this encounter Plan of Treatment Not on filedocumented as of this encounter Visit Diagnoses Diagnosis Multiple Myeloma Not Having Achieved Rem ission (HCC) documented in this encounter
--- OUTSIDE RECORDS SUMMARY | 2022-05-22 06:12 | XMS_ITS | Encounter Summary ---
:1950 Author Organization [facility] Address [address] [place] [address] Care Team Providers Name Role Phone Unavailable Primary Care Provider Unavailable Encounter Details Date Type Department Care Team Description 04/23/2022 Hospital Encounter Department of Delmis Sotelo M.D., Multip le Myeloma Not Having Achieved Remission (HCC); Laboratory Medicine Ph.D. 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); and Pathology, [address] [place] [address] Tumor Cecum Villous [facility] in [place], [place] [phone] [place] [address] [place], [place] (Work) [phone] Social History Tobacco Use Types Packs/Day Years Used Date Smoking Tobacco: Never Sex Assigned at Date Recorded Not on file documented as of this encounter Medications at Time of Discharge Medication Sig Dispensed Refills Start Date End Date zdisjyu-rrqvehbzybeiq-qfkr Take 1 tablet by 0 eine (EXCEDRIN MIGRAINE) mouth every 6 (six) 250-250-65 mg per tablet hours as needed for pain. biotin 1 mg tablet Take by mouth daily. 0 cholecalciferol, vitamin Take by mouth. 0 D3, (D3-2000 ORAL) magnesium Take by mouth. 0 P-ggxyht-gmgzjscyisk 42 mg (500 mg)- 250 mg tablet extended release mecobalamin (B12 ACTIVE Take by mouth. 0 ORAL) potassium chloride Take 20 mEq by mouth. 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
--- OUTSIDE RECORDS SUMMARY | 2022-05-22 06:12 | XMS_ITS | Encounter Summary ---
:[address] [facility] Address [address] [place] [address] Care Team Providers Name Role Phone Unavailable Primary Care Provider Unavailable Reason for Referral Outpatient (Routine) - Closed Specialty Diagnoses / Procedures Referred By Contact Refer red To Contact Colon and Rectal Diagnoses Multiple Myeloma Not Having Achieved Remission (HCC) Delmis Sotelo M.D., Ph.D. 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
--- OUTSIDE RECORDS SUMMARY | 2022-05-22 06:12 | XMS_ITS | Clinical Summary ---
:1950 Author Organization [employer] [place] [address] Care Team Providers Name Role Phone Monica Santos Primary Care Provider Allergies Active Allergy Reactions Severity Noted Date Comments Adhesive Other - Describe In 04/02/2022 Takes to p layer of Tape-Silicones Comment Field skin off Losartan Dizziness 06/11/2014 Medications Medication Sig Dispensed Refills Start Date End Date Status potassium chloride Take one tab 90 Tablet 0 07/06/2021 Active (KLOR-CON M20) 20 by mouth once mEq daily when Extended-Release having tabletIndications: diarrhea with Hypokalemia colitis flare. atorvastatin Take 1 Tablet 90 Tablet 3 07/06/2021 Di scontinued (LIPITOR) 40 mg (40 mg) by 2 (*A llergic/Adver tabletIndications: mouth at s e Rxn/Side Hyperlipidemia, bedtime. Effe cts) unspecified hyperlipidemia type sertraline (ZOLOFT) Take 1 Tablet 90 Tablet 3 07/06/202105/11 Discontinued 100 mg (100 mg) by 2 (*Patien t states tabletIndications: mouth once no longer Moderate episode of daily. taking/Not on recurrent major send ing facility depressive disorder list) (HC), Generalized anxiety disorder triamterene-hydroch Take 1 Tablet 90 Tablet 3 07/06/202105/11 Discontinued lorothiazide, by mouth 2 (*Chris rgic/Adver 37.5-25 mg, every se Rxn/S rosemary (MAXZIDE-25) morning. Effects ) 37.5-25 mg tabletIndications: HTN (hypertension) Active Problems Problem Noted Date Colon polyp 03/09/2022 Overview: Colonoscopy 03/2022 large adenomatous hig h-grade dysplasia mass filling the cecum, biopsies show collagenous colitis, recommend surgical resection of cecal tumor CLL (chronic lymphocytic leukemia) 12/26/2021 Overview: December 2021. Osteoporosis screening 01/23/2019 Overview: Bone density December 2018, normal. Repeat 3- 5 years. 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 Other psoriasis 02/20/2007 Other and unspecified hyperlipidemia 02/20/2007 Allergic rhinitis, cause unspecified 02/20/2007 Resolved Problems Problem Noted Date Resolved Date Screen for colon cancer 04/18/2010 03/02/2011 Overview: Colonoscopy 04/2010 normal repeat in 10 y ears Panic disorder without agoraphobia 02/20/200701/04 Symptomatic menopausal or female climacteric states 02/21/20 07 11/16/2014 Overview: Hysterectomy at age 35 endometriosis Encounters Date Type Specialty Care Team Description 05/21/2022 Travel 05/14/2022 Office Visit Suyapa Sutton, Surgery Scheduled MD (Discuss upcomi ng surgery) 05/14/2022 Travel 05/11/2022 Preop Visit Monica Santos, Preoper ative Exam PA ([facility]-right ashwin-colectomy -Dr. Stuton-05/22/22 ) 05/11/2022 Orders Only Monica Santos, <No sca ns attached> RIZWAN 05/11/2022 Travel 05/02/2022 Transcribe Orders Suyapa Sutton MD 05/01/2022 Telephone Suyapa Sutton, Concern s (IN PERSON MD VISIT TO RESCHE DULE SURGERY // DISC USS CONCERNS ) 04/26/2022 Office Visit Ira Rodriguez Derm Problem ( Possible RIZWAN Mcneal boil in pelvic area. ) 04/25/2022 Travel 04/25/2022 Telephone Monica Santos, symptom s (growth pubic PA bone) 04/12/2022 Orders Only Scanner <No scans attac hed> 04/06/2022 Ancillary Procedure 04/06/2022 Orders Only Lab, [facility] 04/06/2022 Travel 04/05/2022 Lab Requisition Luci Croft MBBS 04/03/2022 Transcribe Orders Suyapa Sutton MD 04/02/2022 Office Visit Suyapa Sutton, Consult (Colonic mass MD referred by Dr. Peñaloza) 04/02/2022 Travel 03/22/2022 Orders Only Scanner <No scans attac hed> 03/16/2022 Orders Only Scanner <No scans attac hed> 03/16/2022 Orders Only Scanner <No scans attac hed> 03/16/2022 Orders Only Scanner <No scans attac hed> 03/16/2022 Orders Only Scanner <No scans attac hed> 03/06/2022 Procedure Only David Peñaloza Procedure (C olonoscopy) MD Huy 03/06/2022 Travel 02/28/2022 Telephone David Peñaloza Appointment Re niles Son MD (Colonoscopy arriving at 133 0) 02/23/2022 Office Visit Monica Santos, Derm Pr oblem (Needs PA referral to colmenares for rash on legs-mi ldly itchy) 02/23/2022 Travel 02/21/2022 Orders Only Scanner <No scans attac hed> 02/21/2022 Travel 02/21/2022 Telephone Monica Santos Questio ns PA from Last 3 Months Immunizations Name Administration Dates Next Due COVID-19 vaccine (Maganda Pure Minerals 11/27/2020, 11/06/2020 30mcg/0.3mL) PF, MDV DTaP-HIB (TriHIBIT) 09/30/2012 Influenza, High-dose Inactivated 06/19/2017, 07/17/2016 Influenza, High-dose Quadrivalent 06/30/2020 Inactivated Influenza, IIV3 (Age 6-35 mos) 06/06/2015, 05/26/2009 Influenza, IIV3 (Age >=3 years) 06/07/2015, 06/02/2014, 12/0 10/2012, 06/05/2011, 06/06/2010, 07/17/2006 Influenza, IIV4 06/18/2019, 06/03/2014 Influenza, Inactivated AIIV4 (Age 65+ 05/11/2022, 06/13/2021 Years) Preserv Free Influenza, Inactivated IIV3 (Age 65+ 06/17/2018 Years) Preserv Free Pneumococcal Poly,23-Valent 09/26/2017 (Pneumovax) Pneumococcal conj 13-Valent (Prevnar 07/17/2016 13) Td (Age >=7 Years) 05/24/2005 Td, Preservative Free (age >= 7 05/24/2005 Years) Tdap 09/30/2012 Zoster (Zostavax-ZVL, live) 02/27/2013 Family History Medical History Relation Name Comments Hypertension Brother 1 Diabetes Brother 2 Heart Disease Father Heart attack at 40, two bypass surgeries Hypertension Father renal failure Cancer-colon Maternal Grandfather in his 70s Diabetes Mother Hypertension Mother Hypertension Paternal Grandfather Anesthesia Problem No Family History Blood Disease No Family History Cancer-breast No Family History Relation Name Status Comments Brother 1 Brother 2 Father Maternal Grandfather Mother Paternal Grandfather Social History Tobacco Use Types Packs/Day Years Used Date Never Smoker Smokeless Tobacco: Never Used Tobacco Cessation: Counseling Given: Yes Alcohol Use Standard Drinks/Week Comments Yes 0 (1 standard drink = 0.6 oz pure alcoho l) rarely Alcohol Habits Answer Date Recorded How often do you have a drink containing alcohol? Not asked How many drinks containing alcohol do you have on a typical Not asked day when you are drinking? How often do you have six or more drinks on one occasion? No t asked Comment: rarely 09/28/2010 Sex Assigned at Date Recorded Not on file COVID-19 Exposure Response Date Recorded In the last 10 days, have you been in contact with No / Unsu re 05/14/2022 12:49 PM CDT someone who was confirmed or suspected to have Coronavirus/COVID-19? Obstetrics History Para Term AB IAB SAB Ectopic Multiple Living Live Births 5 4 4 1 1 4 Date Outcome GA Total Labor/2nd/3rd Weight Sex Delivery Anes PTL Jael A 1 A5 Name Clin Labor Term Term Term Term SAB Last Filed Vital Signs Vital Sign Reading Time Taken Comments Blood Pressure 143/77 05/14/2022 1:08 PM CDT Pulse 70 05/14/2022 1:08 PM CDT Temperature 36.8 ??C (98.2 ??F) 04/26/2022 10:12 AM CDT Respiratory Rate 16 01/28/2008 4:02 PM CDT Oxygen Saturation 98% 05/14/2022 1:08 PM CDT Inhaled Oxygen Concentration - - Weight 71.4 kg (157 lb 4.8 oz) 05/14/2022 1:08 PM CDT Height 166.5 cm (5' 5.55) 05/11/2022 9:18 AM CDT Body Mass Index 25.74 05/11/2022 9:18 AM CDT Plan of Treatment Upcoming Encounters Date Type Specialty Care Team Description 06/27/2022 Office Visit Cassandra Ford, PhD, LP [address] [place], [place] [address] (Wo rk) Health Maintenance Due Date Last Done Comments Zoster (shingles) series for age 0804/24/2013 02/27/2013 50+ (1 of 2) COVID-19 vaccine series (5 - 05/27/2022 01/24/2022, 021, Booster for Pfizer series) 11/27/2020, Additiona l history exists Depression screening for age 12+ 07/06/2022 07/06/2021, 07/2021, 08/10/2020, Additional history exists Medicare Wellness for age 65+ 07/06/2022 07/06/2021 Tetanus booster 09/30/2022 09/30/2012, 05/24/2005, 05/24/2005 Mammogram for age 45-75 02/16/2023 02/16/2022, 01/19/2019, 07/17/2016, Additional history exists BMI (ht and wt on same day) for 05/11/2023 05/11/2022, 12/02, age 18+ 07/06/2021, Additional history exists Lipids for age 45-75 07/06/2026 07/06/2021, 05/24/2020, 01/09/2019, Additional history exists Colonoscopy through age 75 03/06/2032 03/06/2022, , 03/06/2022, Additional history exists Tdap Completed 09/30/2012 Pneumococcal series for age 65+ Completed 09/26/2017, 07/03 DEXA/DXA scan for age 65+ Completed 01/19/2019, 01/10/2010 Hepatitis C screening for age Completed 07/06/2021 18-79 Influenza for age 65+ Completed 05/11/2022, 06/13/2021, 06/30/2020, Additional history exists Procedures Procedure Name Priority Date/Time Associated Comments Diagnosis VT READING EKG - NO Routine 05/11/2022 1:43 PM Pre-op exam CHARGE, COMP ONLY CDT EKG 12 LEAD Routine 05/11/2022 1:43 PM Pre-op exam CDT SCAN-DIAGNOSTIC REPORT 04/12/2022 12:00 R esults for this AM CDT procedure are i n the results section. CT CHEST ABDOMEN Routine 04/06/2022 12:15 Colonic mass Results for this PELVIS W PM CDT procedure are i n the results section. CREATININE,ISTAT Routine 04/06/2022 11:18 Observation or Resul ts for this AM CDT evaluation for procedure are in suspected condition the resu lts section. CEA Routine 04/06/2022 11:12 Colonic mass Results for this AM CDT Neoplasm of procedure are i n uncertain behavior the resul ts of colon section. LAB TRACKING EVENT Routine 04/05/2022 7:15 AM CDT BONE MARROW STUDY Routine 04/05/2022 7:15 AM Resu lts for this CDT procedure are i n the results section. MSO AP SEND-OUT Routine 04/05/2022 7:15 AM CDT MSO AP SEND-OUT Routine 04/05/2022 7:15 AM CDT DEL13/CEP12 Routine 04/05/2022 7:15 AM CDT CHROM TECH 1 Routine 04/05/2022 7:15 AM CDT MISCELLANEOUS SEND OUT Routine 04/05/2022 7:15 AM Results for this CDT procedure are i n the results section. BONE MARROW Routine 04/05/2022 7:15 AM DIFFERENTIAL CDT PCB Routine 04/05/2022 7:15 AM CDT OB Routine 04/05/2022 7:15 AM CDT BM/LB CHROM Routine 04/05/2022 7:15 AM CDT BM WETLAB Routine 04/05/2022 7:15 AM CDT CYTOGENETICS BONE Routine 04/05/2022 7:15 AM Resu lts for this MARROW CDT procedure are i n the results section. SCAN-PET SCAN 03/22/2022 12:00 Results fo r this AM CDT procedure are i n the results section. SCAN-LABORATORY REPORT 03/16/2022 12:00 R esults for this AM CDT procedure are i n the results section. SCAN-LABORATORY REPORT 03/16/2022 12:00 R esults for this AM CDT procedure are i n the results section. SCAN-LABORATORY REPORT 03/16/2022 12:00 R esults for this AM CDT procedure are i n the results section. SCAN-LABORATORY REPORT 03/16/2022 12:00 R esults for this AM CDT procedure are i n the results section. PATH TISSUE EXAM Routine 03/06/2022 2:27 PM Abnormal PET scan Results for this CDT of colon procedure are in Diarrhea, the results unspecified type section. Lymphocytic coli tis Colonic mass COLONOSCOPY 03/06/2022 1:43 PM Results f or this CDT procedure are i n the results section. COLONOSCOPY SCREENING Routine 03/06/2022 1:29 PM Abnormal PET scan CDT of colon SCAN-LABORATORY REPORT 02/21/2022 12:00 R esults for this AM CDT procedure are i n the results section. from Last 3 Months Results EKG 12 LEAD (05/11/2022 1:43 PM CDT) Narrative This result has an attachment that is no t available. Monica Santos PA EKG ORD VT READING EKG - NO CHARGE, COMP ONLY (05/11/2022 1:43 PM CDT) Monica ASTORGA PB - PROVIDER READINGS SCAN-DIAGNOSTIC REPORT (04/12/2022 12:00 AM CDT) Narrative This result has an attachment that is no t available. Scanner OTHER CT CHEST ABDOMEN PELVIS W (04/06/2022 12:15 PM CDT) Anatomical Region Laterality Modality Abdomen, Pelvis, AORTA, LIVER, SPLEEN, CHEST Computed Tomography Specimen (Source) Anatomical Collection Method Collection Time Re ceived Time Location / / Volume Laterality 04/06/2022 1:20 PM CDT Narrative 04/06/2022 1:20 PM CDT For Patients: ??As a result of the Century Cures Act, medical imaging exams and procedure report s are released immediately into your [facility] medical record. ??You may view this report before your referring provider. ??If you have questions, please contact your health care provider. Indication: Cecal tubular adenoma with high-grade dy splasia, recent diagnosis CLL status post bone marrow biopsy Technique: Postcontrast CT chest, abdomen and pelvi s. Oral water. 100 cc Omnipaque 350 intravenous contrast. Please note that all CT scans at this [facility] use dose modulation, iterative reconstruction, and/or weight-based dosing when appropriate to reduce radiation dose to as low as reasonably achievable. Comparison: None Findings: In the chest, sequela of granulomatous d isease noted with several calcified pulmonary granulomas, the largest measures 1.1 cm. Calcified mediastinal and hilar lymph nodes noted. There is a prominent rig ht axillary lymph node measuring 1.1 cm. This is located along the right lateral chest wall. Additional mildly prominent lymph nodes noted within the right axilla superiorly measuring up to 1 cm. Larger left axillary lymph nodes are present m easuring up to 1.9 cm. Other smaller subcentimeter lymph nodes extend along the left lateral chest wall. Mild dependent areas of scarring. No pleural effusion. No pericardial effusion. No infiltrate. De generative changes. No fracture. In the abdomen and pelvis, the liver is enlarged measuring up to 21 centimeters. Small calcified hepatic granulomas are present along with small calcified splenic granulomas. The spleen is also mildly e nlarged measuring up to 14.3 cm. No hydr onephrosis. Simple cyst lower pole right kidney measuring 1.6 cm. Smaller cyst lower pole right kidney measuring 5 millimeters. Tiny cysts left kidney measuring u p to 7 millimeters. Adrenal glands soto l. Dense vascular calcifications. Pancreatic atrophy, mild. Gallbladder is absent with normal tapering of the biliary tree. Enlarged retroperitoneal lymph nodes m easuring up to 1.5 cm in the aortocaval space. Bilateral pelvic adenopathy noted with several lymph nodes along the external iliac chain bilaterally measuring up to 2.2 cm. The bladder is normal. The ut erus is absent. There is no bowel obstru ction. Sigmoid diverticulosis. Biopsy tubular adenoma within the cecum. No mucosal wall thickening. Several subcentimeter right lower quadrant mesenteric lymph nodes are present measu ring up to 6 millimeters. Post bone marrow biopsy changes to the right gluteal region with soft tissue gas. No fracture. Degenerative disc disease L4-5. Facet degeneration L5-S1. Impression: Biopsy tubular adenoma within the cecum. Several subcentimeter lymph nodes in the adjacent mesenteric fat. Hepatosplenomegaly. No suspicious intrah epatic lesion or stigmata of cirrhosis. Sequela of granulomatous disease with nu merous calcified pulmonary nodules, hepatic splenic calcified granulomas and calcified intrathoracic lymph nodes. Bilateral axillary and bilateral pelvic adenopathy compatible with recent history of CLL. Also noted is mild retroperitoneal adenopathy. Please note that all CT scans at this fa cility use dose modulation, iterative reconstruction, and/or weight-based dosing when appropriate to reduce radiation dose to as low as reasonably achievable. Dictated by Gael Parra MD @ Apr ??2021 ??1:20PM (Electronically Signed) ?? Procedure Note Gael Parra MD - 04/06/2022For matting of this note might be different from the original. For Patients: As a result of the ntury Cures Act, medical imaging exams and procedure reports are released immediately into your electronic medical record. You may view this report before your referring provider. If you have questions, please contact [facility] care provider. Indication: Cecal tubular adenoma with high-grade dy splasia, recent diagnosis CLL status post bone marrow biopsy Technique: Postcontrast CT chest, abdomen and pelvi s. Oral water. 100 cc Omnipaque 350 intravenous contrast. Please note that [facility] use dose modulation, iterative reconstruction, and/or weight-based dosing when appropriate to reduce radiation dose to as low as reasonably achievable. Comparison: None Findings: In the chest, sequela of granulomatous d isease noted with several calcified pulmonary granulomas, the largest measures 1.1 cm. Calcified mediastinal and hilar lymph nodes noted. There is a prominent right axillary lymph node measuring 1.1 cm. Th is is located along the right lateral chest wall. Additional mildly prominent lymph nodes noted within the right axilla superiorly measuring up to 1 cm. Larger left axillary lymph nodes are present measuring up to 1.9 cm. Other smaller subcentimeter lymph nodes extend along the left lateral chest wall. Mild dependent areas of scarring. No pleural effusion. No pericardial effusion. No infiltrate. Degenerative changes. No fracture. In the abdomen and pelvis, the liver is enlarged measuring up to 21 centimeters. Small calcified hepatic granulomas are present along with small calcified splenic granulomas. The spleen is also mildly enlarged measuring up to 14.3 cm. No hydronephros is. Simple cyst lower pole right kidney measuring 1.6 cm. Smaller cyst lower pole right kidney measuring 5 millimeters. Tiny cysts left kidney measuring up to 7 millimeters. Adrenal glands normal. Dense vascular calcificat ions. Pancreatic atrophy, mild. Gallbladder is absent with normal tapering of the biliary tree. Enlarged retroperitoneal lymph nodes measuring up to 1.5 cm in the aortocaval space. Bilateral pelvic adenopathy noted with several lymph nodes along the external iliac chain bilaterally measuring up to 2.2 cm. The bladder is normal. The uterus is absent. There is no bowel obstruction. Sigmoid diverticulosis. Biopsy tubular adenoma w ithin the cecum. No mucosal wall thickening. Several subcentimeter right lower quadrant mesenteric lymph nodes are present measu ring up to 6 millimeters. Post bone marrow biopsy changes to the right gluteal region with soft tissue gas. No fracture. Degenerative disc disease L4-5. Facet degeneration L5-S1. Impression: Biopsy tubular adenoma within the cecum. Several subcentimeter lymph nodes in the adjacent mesenteric fat. Hepatosplenomegaly. No suspicious intrah epatic lesion or stigmata of cirrhosis. Sequela of granulomatous disease with nu merous calcified pulmonary nodules, hepatic splenic calcified granulomas and calcified intrathoracic lymph nodes. Bilateral axillary and bilateral pelvic adenopathy compatible with recent history of CLL. Also noted is mild retroperitoneal adenopathy. Please note that all CT scans at this [facility] use dose modulation, iterative reconstruction, and/or weight-based dosing when appropriate to reduce radiation dose to as low as reasonably achievable. Dictated by Gael Parra MD @ Apr 06 1:20PM (Electronically Signed) Suyapa Sutton MD CT (ABNORMAL) CREATININE,ISTAT (04/06/2022 11:18 AM CDT) athologist Signature CREATININE, 1.10 0.57 - 04/06/2022 [facility] POCT 1.11 mg/dL 11:22 AM CDT [facility] Comment: Caution: Patients taking Hydrox yurea have falsely increased iStat Creatinine results. Verify creatinine results order ing a Creatinine (01265.2) eGFR 54 (L) >90 mL/min/1.73m2 04/06/2022 11:22 AM CD T [facility] Comment: As of 2021, eGFR is calcu lated by the CKD-EPI creatinine equation without race adjustment. eGFR can be inf luenced by muscle mass, exercise, and diet. The reported eGFR is an estimation only and is only applicable if the renal function is stable. Specimen Anatomical Collection Method Collection Time Receive d Time (Source) Location / / Volume Laterality Blood BLOOD SPECIMEN / 04/06/2022 11:18 022 Unknown AM CDT 11:22 AM CDT Suyapa Sutton MD CHEMISTRY Performing Organization Address City/State/ZIP Code Phon e Number [facility] [address] [place] [address] CEA (04/06/2022 11:12 AM CDT) athologist Signature CEA <2.0 ng/mL 04/08/2022 [facility] 3:31 AM CDT LABORATORY-CENTR AL LABORATORY Specimen Anatomical Collection Method / Collection Time Recei sae Time (Source) Location / Volume Laterality Blood BLOOD SPECIMEN / Venipuncture / 04/06/2022 11:12 04/06 Unknown Unknown AM CDT 11:15 AM CDT Narrative [facility] LABORATORY-CENTRAL LABORAT ORY - 04/08/2022 3:31 AM CDT ?Expected Values for: ? Healthy Non-Smoker ? (<=3. 0) ? Healthy Smoker ? (<= 5.0) [employer] CEA assay is a Chem iluminescent Microparticle Immunoassay (CMIA). Assay values obtained with different assay methods cannot be used i nterchangeably due to differences in assay methods and reagent specificity. ?Expected Values for: ? Healthy Non-Smoker ? (<=3. 0) ? Healthy Smoker ? (<= 5.0) [employer] CEA assay is a Chem iluminescent Microparticle Immunoassay (CMIA). Assay values obtained with different assay methods cannot be used i nterchangeably due to differences in assay methods and reagent specificity. Suyapa Sutton MD CHEMISTRY Performing Organization Address [facility] Phon e Number Friday[facility]INGSTED [facility] [address] [place] [phone] LABORATORY-CENTRAL 2000 LABORATORY BM/LB CHROM (04/05/2022 7:15 AM CDT) Specimen Anatomical Collection Method Collection Time Receive d Time (Source) Location / / Volume Laterality Bone Marrow 04/05/2022 7:15 AM 2 3:21 (Bone Marrow CDT PM CDT Aspirate) [facility] Performing Organization Address [facility] Phon e Number FridayRINGSTED OMEGA MORGAN [address] [place] [phone] LABORATORY-CENTRAL 1999 LABORATORY BM WETLAB (04/05/2022 7:15 AM CDT) Specimen Anatomical Collection Method Collection Time Receive d Time (Source) Location / / Volume Laterality Bone Marrow 04/05/2022 7:15 AM 2 3:21 (Bone Marrow CDT PM CDT Aspirate) [facility] Performing Organization Address [facility] Phon e Number FridayRINGSTED OMEGA MORGAN [address] [place] [address] LABORATORY-CENTRAL 2000 LABORATORY PCB (04/05/2022 7:15 AM CDT) Specimen Anatomical Collection Method Collection Time Receive d Time (Source) Location / / Volume Laterality Bone Marrow 04/05/2022 7:15 AM 2 3:21 (Bone Marrow CDT PM CDT Aspirate) Luci Croft [facility] Performing Organization Address City/[facility]/ZIP Code Phon e Number [facility] [address] [place] [address] [place] [address] LABORATORY-CENTRAL 2000 LABORATORY OB (04/05/2022 7:15 AM CDT) Specimen Anatomical Collection Method Collection Time Receive d Time (Source) Location / / Volume Laterality Bone Marrow 04/05/2022 7:15 AM 2 3:21 (Bone Marrow CDT PM CDT Aspirate) Luci Petersenboj [facility] Performing Organization Address City/[facility]/ZIP Code Phon e Number [facility] [address] [place] [phone] LABORATORY-CENTRAL 2000 LABORATORY CHROM TECH 1 (04/05/2022 7:15 AM CDT) Specimen Anatomical Collection Method Collection Time Receive d Time (Source) Location / / Volume Laterality Bone Marrow 04/05/2022 7:15 AM 2 3:21 (Bone Marrow CDT PM CDT Aspirate) Luci Petersenboj [facility] Performing Organization Address [facility] Code Phon e Number [facility] [address] [place] [id number] LABORATORY-CENTRAL 2000 LABORATORY BONE MARROW DIFFERENTIAL (04/05/2022 7:15 AM CDT) Specimen Anatomical Collection Method Collection Time Receive d Time (Source) Location / / Volume Laterality Bone Marrow 04/05/2022 7:15 AM 2 8:22 (Bone Marrow CDT AM CDT Aspirate) Luci Croft [facility] Performing Organization Address City/State/ZIP Code Phon e Number [facility] [place] [address] [place] [phone] LABORATORY-CENTRAL 2000 LABORATORY LAB TRACKING EVENT (04/05/2022 7:15 AM CDT) Specimen Anatomical Collection Method Collection Time Receive d Time (Source) Location / / Volume Laterality Other (Other) Client Collect / 04/05/2022 7:15 AM 0812/2021 2:45 Unknown CDT PM CDT Luci Petersenboj [facility] LAB BILL ONLY Performing Organization Address City/State/ZIP Code Phon e Number [facility] [address] [place] [address] LABORATORY-CENTRAL 2000 LABORATORY MSO AP SEND-OUT (04/05/2022 7:15 AM CDT)Only the most recent of2 resultswithin the time period is included. Specimen Anatomical Collection Method Collection Time Receive d Time (Source) Location / / Volume Laterality Bone Marrow 04/05/2022 7:15 AM 2 9:11 (Bone Marrow CDT AM CDT Core Biopsy) Luci Petersenboj [facility] LABORATORY Performing Organization Address City/[facility]/ZIP [facility] Phon e Number [facility] [address] [place] [address] LABORATORY-CENTRAL 1999 LABORATORY DEL13/CEP12 (04/05/2022 7:15 AM CDT) Specimen Anatomical Collection Method Collection Time Receive d Time (Source) Location / / Volume Laterality Bone Marrow 04/05/2022 7:15 AM 2 3:21 (Bone Marrow CDT PM CDT Aspirate) [facility] Performing Organization Address City/State/ZIP Code Phon e Number [facility] [address] [place], [place] [address] [place] [address] LABORATORY-CENTRAL 2000 LABORATORY CYTOGENETIC BONE MARROW STUDIES (04/05/2022 7:15 AM CDT) Component Value Ref Test Analysis Performed At [facility] Range Method Time Signature RFR Chronic Lymphocytic 04/19/2022 [facility] Leukemia 5:21 PM HEALTH T LABORATORY-C ENTRAL LABORATORY TEST & RESULT Chromosome Analysis: ?? Positive for a trisomy 12 lino ne. 04/19/2022 [facility] SUMMARY 5:21 PM HEALTH 13q-/CEP12 FISH: ?? Positive for 2 unrelated abnormal clones. One clone has Trisomy 12 as a sole abnormality. The second clone has a deletion of 13q14.3 as a sole abnormality. CDT LABORATORY-C ENTRAL LABORATORY _ 04/19/2022 [facility] Electronically signed by Guanaco Dsouza MD on at 5:21 PM 5:21 PM HEALTH CDT LABORATORY-C ENTRAL LABORATORY ISCN 47,XX,+12[10]/46,XX[10] 04/19/2022 [facility] A nuc luz(B25C6f6,Q87Q885b1,PFSY6o0)[80/20 0],(T94H3s9,K41Q863h7,VCBL1x6)[47/200] 5:21 HEALTH CDT LABORATORY-C ENTRAL LABORATORY INTERPRETATION Chromosome analysis revealed an abnormal karyotype with trisomy 12 in 10 metaphases examined, with the remaining 10 metaphases being cytogenetically normal. 13q-/CEP12 FISH revealed 2 unrelated clones, 04/19/2022 [facility] one with trisomy 12 as a barber e abnormality (40.0%) and a separate clone with deletion 13q14.3 as a ole abnormality(23.5%). The deletion 13q14.3 was detected in the previous FISH study (Cytogenetics case 5:21 HEALTH [id number] within Pathology case [id number]). ?? CDT LABORATORY-C ENTRAL Trisomy 12 is a recurring ch romosome abnormality in CLL/SLL (Gabbi, 2017). Trisomy 12 is classified as an intermediate cytogenetics risk category in CLL (NCCN, 2022). Deletion 13q is often cryptic an LABORATORY d not detectable by chromoso me analysis. The +12 seen in the current FISH study may demonstrate cytogenetic evolution and may indicate disease progression. Clinicopathologic correlation of these results is recommende d. LAB TEST DETAILS Fully Analyzed Metaphases: ??20 0 04/19/2022 [facility] Partially Analyzed Metaphases: ??0 5:21 HEALTH Full Karyotypes: ??3 CDT LABORATOR Y-C ENTRAL Abnormality ? Result ?%Abn ? Cutoff LABORATORY Trisomy 12 ?Abnormal ?40.0% ?>4.0% Loss of [id number] (13q14.3) ?? Abnormal ?23.5% ?>8.0% SOURCE Bone Marrow ([facility]) 04/19/2022 [facility] [id number] 5:21 [facility] CDT LABORATORY-C ENTRAL LABORATORY METHODS Cultures used in chromosome analysis included a non-stimulated culture and a culture stimulated with the following B-cell mitogens: phorbol 12- myristate 13-acetate (PMA) and cytochalasin B (Cyto-B). Chr 04/19/2022 [facility] omosome analysis is performed on consecutive analyzabl e G-banded metaphases. 5:21 PM [facility] CDT LABORATORY-C Cultured cells were hybridiz ed using fluorescence in situ hybridization (FISH) with the following probe set: ENTRAL ??Probe Source ?? Probe/loc ation ? Probe Strategy LABORATORY ??Vysis ?D13S3 19 (13q14)/13q34/ CEP12 (12p11.1-q11) ?? Enumeration FISH analysis was performed on 200 consecutive analyzable nuclei. This FISH test uses a multiplex probe stain procedure. REFERENCES [facility]. (2021). Chronic Lymphocytic Leukemia/Small Lymphocytic Leukemia (version 3.2021). Retrieved from https://www.nccn.org/professionals/physician_gls/pdf/cll.pdf. 04/19/2022 [facility] 5:21 PM [facility] Gabbi Alegre, Abraham Galeas, Enrrique Farrar, Mani Webster, Salo Proctor, Osei Donovan, Munira Vance. (Eds): WHO Classification of Tumours of Haematopoietic and Lymphoid Tissues. (Revised 4th edition) IARC: Williams 2017. CDT L ABORATORY-C ENTRAL LABORATORY DISCLAIMER These tests were 04/19/2022 [facility] and their 5:21 PM [facility] CDT LABORATORY-C characteristics ENTRAL determined by the LABORATORY [facility]. They have not been cleared or approved by the U.S. Food and Drug Administration. The FDA does not require these tests to go through premarket FDA review. These tests are used for clinical purposes. They should not be regarded as investigational or for research. This laboratory is certified under the Clinical Laboratory Improvement Amendments (CLIA) as qualified to perform high complexity clinical laboratory testing. Specimen Anatomical Collection Method Collection Time Receive d Time (Source) Location / / Volume Laterality Bone Marrow 04/05/2022 7:15 AM 2 3:21 (Bone Marrow CDT PM CDT Aspirate) [facility] Performing Organization Address City/State/ZIP Code Phon e Number [facility] [address] [place] [address] LABORATORY-CENTRAL 1999 LABORATORY MISCELLANEOUS SEND OUT (04/05/2022 7:15 AM CDT) Component Value Ref Test Analysis Performed At Patholo gist Range Method Time Signature TEST NAME Lymphoplasmacytic 04/13/2022 [facility] Lymphoma/[place] 10:20 AM HEALTH Macroglobulinemia, CDT LABORATORY- C MYD88 L265P with ENTRAL Reflex to CXCR4 LABORATORY SOURCE Bone Marrow 04/13/2022 [facility] 10:20 AM HEALTH CDT LABORATORY-C ENTRAL LABORATORY PERFORMING [facility] Lab 04/13/2022 [facility] LAB 10:20 AM HEALTH CDT LABORATORY-C ENTRAL LABORATORY REFERRAL LAB [facility] 04/13/2022 [facility] TEST # 10:20 AM HEALTH CDT LABORATORY-C ENTRAL LABORATORY IS THIS A No 04/13/2022 [facility] TEST? 10:20 AM HEALTH CDT LABORATORY-C ENTRAL LABORATORY Specimen Anatomical Collection Method Collection Time Receive d Time (Source) Location / / Volume Laterality Bone Marrow 04/05/2022 7:15 AM 6:29 (Bone Marrow CDT PM CDT Aspirate) Narrative MISCELLANEOUS SEND OUT LAB - 04/13/2022 10:20 AM CDT See Separate Report Luci [facility] SEND OUTS Performing Organization Address City/State/ZIP Code Phon e Number MISCELLANEOUS SEND OUT LAB [facility] [address] [place] [address], LABORATORY-CENTRAL [address] LABORATORY BONE MARROW STUDY (04/05/2022 7:15 AM CDT) Component Value Ref Test Analysis Performed Pathologis t Range Method Time At Signature Case Report Bone Marrow Pathology Report ?Case: [id number] ? HARVEY Authorizing Provider: ??Luci Juan MBBS ?Collected: ? 04/05/2022 0715 ? 2 3:52 PM HEALTH Ordering Location: ? [facility] CENTRAL LAB ?Received: ?04/05/2022 1501 ? CDT L ABORATORY- Pathologist: ? Barboza, Bridgette ? CENTRAL ? MD Timur ? LABORATORY Specimens: ?? A) - Bone Linda ow Aspirate, Right ? B) - Bone Marrow Aspirate (Heparinized), Right ? C) - Bone Marrow Core Biopsy, Right ? D) - Kell pheral Blood ? Final This case was seen in consul tation with Dr. Ras Davidson and Dr. Jairo Sultana ??At [facility], their interpretation is provided below. Please also see scanned report. [facility] Morelia ctronically Diagnosis 2 3:52 PM HEALTH signed by BONE MARROW AND PERIPHERAL BLOOD: CDT LABORATORY- Jabari, 1. ?? Chronic lymphocytic le ukemia/small lymphocytic lymphoma (CLL/SLL), kappa light chain restricted, involving approximately 10-20% of the bone marrow cellularity CENTRAL Bridgette Ding, 2. 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 ?? LABORATORY MD on 05/04/2022 3. ?? Hypercellular bone mar row with increased megakaryocytes and normal erythropoiesis and granulopoiesis at 3:52 PM 4. ??M-spike: 2.01 g/dL IgG-lambda monoclonal protein Preliminary 5. ??Ancillary studies: result ?a. ??Cytogenetics: electronically ?- Chromosome studies: positive for trisomy 12 cl one signed by ?- 13q-/CEP12 FIS H: Positive for 2 unrelated abnormal clones. One clone has Trisomy 12 as a sole abnormality. The second clone has a deletion of 13q14.3 as a sole abnormality Jabari, ?b. ??Molecular: ?? Bridgette Ding, ?- MYD88 mutational testing: Negative on 04/10/2022 6. ??Adequate storage iron; adequate sideroblastic iron at 4:24 PM 7. ??See comment Comment The morphologic and immunoph enotypic findings indicate bone marrow involvement by two low-grade B-cell lymphomas with opposite light chain restriction. ??The first one shows immunophenotypic features of [facility] CLL/SLL. ??The second proce ss, consisting of a lambda light chain restricted, CD5 and CD10 negative B-cell clone, and a lambda light chain restricted, CD19 positive and CD56 negative plasma cell clone, 2 3:52 P M HEALTH in the presence of an IgG l ambda monoclonal protein, favors B-cell lymphoma with plasmacytic differentiation over two separate processes (CD5-negative/FV86-psvdxedb B-cell lymphoproliferative disorder CDT LABORATORY- and plasma cell proliferativ e disorder, both of lambda light chain restriction). CENTRAL LABORATORY Preliminary results of this case were discussed with Dr. Croft by Dr. Barboza on 04/10/2022 Clinical Ms. 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 CT scan Chest/Abd/Pelvis (04/06/2022) shows that the liver is enlarged measuring up to 21 centimeters. The spleen is mildly enlarged measuring up to 14.3 cm. Bone marrow evaluation for further classification and staging is performed. PROCEDURE A RIGHT lateral bone marrow biopsy and unilateral aspiration procedure is performed at [facility] on 04/05/22. Yasir Enriquez MD performed the procedure using an 8 gauge manual needle. The ordering physician is Dr. Luci Croft . [facility] 2 3:52 PM HEALTH The specimen is inked yellow. CDT LABORATORY- CENTRAL Kostas Benson 04/05/2022 4:40 PM LABORATORY CBC and HEMATOLOGY PARAMETERS [facility] Differential Tested at: ??[facility] 2 3:5 2 PM HEALTH ? RESULTS ??EXPECTED VALUES C DT LABORATORY- WBC: ? 12.5 ? 4.5-15k4705/cumm ?ELEVATED CENTRAL RBC: ? 3.0 ?4.00-5.20 mil/cumm ??DECREASED LABORATORY HGB: ? 9.2 ?12-16 gm/dl ? DECREASED HCT: ? 29.1 ? 33-51% ?DECREASED MCV: ? 97.3 ? 80-100 fl ? NORMOCYTIC MCH: ? 30.8 ? 26-34 pg ? MCHC: ?31.6 ? 32-36 gm/dl ? HYPOCHROMIC RDW: ? 13.1 ? 11.5-15.5% ? PLT: ? 195 ?140-192h5051/uL ? Retic: ?? 1.62 ? 0.5-1.5% ?ELEVATED Differential ?Tested at: ??Central ?Absolute (%) ?Expected (%) ?(x10*9/L) ? (x10*9/L) Neutrophils: ?2.96 (23.8) ? 1.7-7.0 (42-72%) ? Lymphocytes: ?8.41 (67.6) ? 0.9-2.9 (20-44%) ??ELEVA DENILSON Monocytes: ?0.74 (5.9) ? <0.9 (0-11%) ? Eosinophils: ?0.26 (2.1) ? <0.5 (0-2%) ? Basophils: ?0.05 (.4) ?<0.3 (<3.0%) ? Imm Grans: ?0.03 (.2) ?<0.3 (0-3%) ? (Metas, Myelos,Pros) Bone Marrow (performed at [facility]) [facility] Differential Blasts: ?0.2 ? 0.2-1.5% ? 2 3:52 PM HEALTH Neutrophils & precursors: ??31.6 ?58.0-65 .0% ?DECREASED CDT LABORATORY- Eosinophils & precursors: ??0.0 ? 0.2- 5.3% ?DECREASED CENTRAL Basophils & precursors: ?0.0 ? 0.0-1.0 % ? LABORATORY Erythroid precursors: ?6.8 ? 18.0-24.0% ?DECREASED Lymphocytes: ? 60.2 ? 3.0-24.0% ?ELEVATED Monocytes: ? 1.0 ? 0.7 -2.8% ? Plasma cells: ?0.2 ? 0.1- 1.5% Microscopic SPECIMENS EXAMINED: [facility] Description Peripheral blood 2 3:52 PM HEALTH Aspirate direct and concentrate smears: Adequate CDT LABORATORY- Particle crush smears CENTRAL Touch imprints LABORATORY Clot section Bone core trephine sample (decalcified): Adequate, 2.6 cm Bone core and clot section color: Yellow PERIPHERAL BLOOD: Red blood cells, mild normocytic anemia with minimal anisopo ikilocytosis. White blood cells, leukocyto sis with mild lymphocytosis and an expanded population of small atypical lymphocytes with round nuclear contours, clumped chromatin and small amount of cytoplasm. ??A subset of the atypical lymphocytes appear to have variably condensed chromatin and fine, hair-like cytoplasmic projections. Platelets: No cytologic abnormalities. BONE MARROW ASPIRATE, CORE AND CLOT SECTION: Marrow cellularity: 60-70% Erythroid precursors: Normal quantity. ??Normal morphology. Myeloid precursors: Normal q uantity. ??Normal morphology. ??Blasts not increased. Megakaryocytes: Increased quantity. ??Normal morphology and distribution. Lymphocytes/plasma cells: An abnormal infiltrate of small to medium sized lymphoid cells with irregular nuclear contours, clumped chromatin and a small amount of cytoplasm is identified in a nodular and interstitial pattern. ??The nodular infiltrate appears to be centered on residual follicular dendritic cell meshworks. ??Admixed are focal clusters of plasma cells with mostly unremarkable morphology. ??The abnormal lymphoid and plasma cell infiltrate comprises 60-70% of the bone marrow cellularity. IRON STUDIES: Storage iron, sideroblastic iron and ring sideroblasts evaluated; results included in diagnosis. Support for the interpretati on of this case may have included the use of immunohistochemistry and/or in situ hybridization tests that were performed by [facility] and whose performance characteristics were evaluat ed by pathologists from [facility]. These tests have not been cleared or approved by the U.S. Food and Drug Administration. The FDA has determined that suc h clearance or approval is n ot necessary. These tests are used for clinical purposes and should not be regarded as investigational or for research. This laboratory is certified under the Clinical Labora tory Improvement Amendments of 1988 (CLIA) as qualified to perform high complexity clinical laboratory testing. Flow Cytometry B Cell Screen and Plasma Blaise l Screen Panels (performed at [facility]): [facility] Summary 2 3:52 PM HEALTH Interpretation: Two immunoph enotypically distinct monotypic B cell populations are detected, one CD5+ kappa-restricted B-cell population with a chronic lymphocytic leukemia (CLL)-like immunophenotype an CDT LABORATORY- d a second CD5-negative/CD10 -negative lambda-restricted B-cell population. See phenotypic intensity table. CENTRAL LABORATORY Clinical indication for flow cytometry: To evaluate for light chain restriction among B cells. B Cell Screen Panel: Two monotypic B cell cohorts are detected. Cohort #1 comprises approximately 30.2% and Cohort #2 comprises approximately 12.5% of total viable nucleated events as defined by light scatter criteria. ? Summary of B cell cohort #1 phenotype Brightly positive markers: CD45/LAMBDA/CD19/CD20 Moderately positive markers: Dimly positive markers: Trace positive markers: Negative markers: CD3/KAPPA/CD5/CD10 Summary of B cell cohort #2 phenotype Brightly positive markers: CD45/CD19 Moderately positive markers: KAPPA/CD20 Dimly positive markers: CD5 Trace positive markers: Negative markers: CD3/LAMBDA/CD10 Quality Assessment Viability (7-AAD): 90% Cohort 1 monotypic B cell events: 2870 Cohort 2 monotypic B cell events: 1187 Nucleated cells analyzed: 9510 Limit of detection (LOD): 0.2% Plasma Cell Screen panel: Interpretation: No aberrant plasma cells are detected. Clinical indication for flow cytometry: To evaluate for light chain restriction and abnormal immunophenotype among plasma cells. Plasma cells comprise approx imately 0.0% of total nucleated events and demonstrate normal qualitative expression of: CD19, CD20, CD38, CD45, CD56, Vernonia and Lambda cytoplasmic light chains. (Note: The p ercentage of plasma cells fo r clinical management should be based on a 500 cell manual differential by light microscopy and CD138 immunostain analysis on bone marrow core biopsy.) Percent of plasma cells Vernonia(cy):Lambda(cy) ratio: Incalculable Quality Assessment Total PC events: 14 Nucleated cells analyzed: 31979 Limit of detection (LOD): 0.1% These results and cytograms have been verified by Dr. Tyler amezcua. This test was developed and its performance characteristics verified by [facility]. It has not been cleared or approved by the US Food and Drug Administration. This test is used for clinic al purposes and should not be regarded as investigational or for research. Immunostains may have been u sed on this case in conjunction with flow cytometry in order to address ambiguous or inconclusive findings and/or to provide prognostic information. In the event immunostains were performed, results of both modalities were coordinated with H&E findings during diagnostic evaluation. Analytic Flow Tech: Shantelle Verduzco, 04/06/2022 9:44 AM & Tootie Bergeron, 04/10/2022 1:00 PM Verifying Flow Tech: Shira Valenzuela, 04/06/2022 11:06 AM & Zenaida Prabhakar, 04/10/2022 3:00 PM Flow cytometric immunophenot yping, peripheral blood, performed at [facility], [facility], ([id number], collected on 04/23/2022): Blasts: Not increased by CD45/side scatter and CD34. B cells, 2 monotypic B-cell populations are present. - Population 1: Monotypic (cytoplasmic) kappa Express: CD19, CD20 (dim), CD22, CD5, CD23, CD200. Do not express: CD10, CD38, CD11c, CD103. Estimated size: 74% of gated lymphoid events; 47% total anal yzed events Absolute clonal B-cell count (calculated): 6.6 x 10^9/L - ??Population 2: Monotypic (cytoplasmic) lambda Express: CD19, CD20, CD22, CD200. Do not express: CD5, CD10, CD23, CD38, CD11c, CD103. Estimated size: 4% gated lymphoid events; 3% total analyzed events B-cell markers tested: B-blaise l panel: CD5, CD11c, CD19, CD20, CD22, CD23, CD38, CD45, CD103, CD200 and kappa and lambda surface light chains. ??Cytoplasmic kappa and lambda immunoglobulin light chains. ? ?Triage panel: CD10, CD19, CD45 and kappa and lambda surface light chains. T-cells/NK-cells: ?? No apparent phenotype by CD3 and CD16. Quality assessment: Specimen received within validated guide lines. Cytogenetics [facility] has been ordered and 2 3:52 PM HEALTH will be reported CDT LABORATORY- separately. CENTRAL LABORATORY Other Testing Immunostains were performed at [facility] on the bone core biopsy: [facility] CD20, PAX5 and CD79a: highlight the neoplastic B-cell infi ltrate 2 3:52 PM HEALTH CD5 and CD23: highlight a subset of neoplastic B cells CDT LABORATORY- CD3: highlights admixed T cells CENTRAL CD21 and CD23: highlight res idual follicuar dendritic cells meshworks which are centered on the neoplastic nodules and appear to correspond to residual germinal centers LABORATORY CD138, MUM1 and CD79a: highl ight plasma cells (comprise 10% of marrow cellularity) Lambda and kappa IHC: ??highlight lambda restricted plasma c ells CD56: demonstrates that plasmacytic cells are negative ?? IgD: ??positive in a subset of the lymphocytes IgG and IgM: ??primarily negative BCL6: ??focally positive in residual germinal center B cells Cyclin D1 (BCL1): negative CD3 highlights scattered small T cells Tryptase: highlights scatter ed mast cells, ??not increased in number and show an unremarkable morphology CD19: attempted; however, ap pears technically inadequate and is non-contributory Immunostains were performed at [facility] on the clot section: Lambda and Vernonia LUZ: highlight lambda restricted plasma blaise ls Additional immunohistochemic al stains performed on the bone marrow biopsy (block C1) by [facility] in [place], [place] as part of consultation: The neoplastic infiltrate co nsist of CD20 positive, PAX5 positive, CD19 positive B cells. ??Admixed are CD3 positive T cells. ??CD138 positive, MUM1 positive plasma cells comprise approximately 10% of t he bone marrow cellularity a nd show lambda light chain restriction. ??A subset of the B cells corresponding to the CD5 positive lymphoma cells appear to express LEF1. ??BCL6 is positive in residual germinal centers. ??SOX11 is negative. Additional [facility] Information Interpreted at [facility] - [address] [place] [id number] 2 3:52 PM [facility] CDT LABORATORY- CENTRAL LABORATORY Specimen Anatomical Collection Method Collection Time Receive d Time (Source) Location / / Volume Laterality Bone Marrow 04/05/2022 7:15 AM 2 3:01 (Bone Marrow CDT PM CDT Aspirate) Bone marrow 04/05/2022 7:15 AM 2 3:01 specimen CDT PM CDT (specimen) (Bone Marrow Aspirate (Heparinized)) Bone marrow 04/05/2022 7:15 AM 2 3:01 specimen CDT PM CDT (specimen) (Bone Marrow Core Biopsy) Bone marrow 04/05/2022 7:15 AM 2 3:01 specimen CDT PM CDT (specimen) (Peripheral Blood) Narrative This result has an attachment that is no t available. [facility] Performing Organization Address City/State/ZIP Code Phon e Number [facility] [address] [place] [address] LABORATORY-CENTRAL 2000 LABORATORY SCAN-PET SCAN (03/22/2022 12:00 AM CDT) Narrative This result has an attachment that is no t available. Scanner OTHER SCAN-LABORATORY REPORT (03/16/2022 12:00 AM CDT)Only the most recent of5 results within the time period is included. Narrative This result has an attachment that is no t available. Scanner OTHER PATH TISSUE EXAM (03/06/2022 2:27 PM CDT) Component Value Ref Test Analysis Performed At [facility] gist Range Method Time Signature Case Report Pathology Report ?Case: [id number] ? 03/08/2022 [facility] Authorizing Provider: ??David Suero MD ?? Collected: ? 03/06/2022 1427 ? 12:51 PM HEALTH [facility] ?? Received: ?03/06/2022 1600 ? CDT LABOR ATORY-C ? Clinic ? ENTRAL Pathologist: ? Antelmo Ramos MD ? LABORATORY Specimens: ?? A) - Cecum Bio psy, cecal mass ? B) - Asce nding Colon Biopsy, random ? C) - Desc ending Colon Biopsy, random ? Final A) COLON, CECUM, MASS, BIOPSY: 2 [facility] Electronically Diagnosis 1. Tubular adenoma (see comment) 12:51 P M HEALTH signed by Richard, 2. Positive for high grade dysplasia CDT LABORATORY-C Antelmo Godoy, 3. Per the colonoscopy report: ENTRCRUZITO CUMMINS on 03/08/2022 ?? a. Mass size: 40 mm LABORA TORY at 12:51 PM ?? b. Resection: ??Partial (biopsy only) B) COLON, ASCENDING, RANDOM, BIOPSY: 1. Collagenous colitis; see comment rega rding potential medication association 2. See comment C) COLON, DESCENDING, RANDOM, BIOPSY: 1. Collagenous colitis; see comment rega rding potential medication association 2. See comment Comment A) This lesion is, at a mini mum, an advanced adenoma (see below). Complete removal is advised to exclude a more clinically significant (invasive) component in the remaining unsampled polyp. 03/08/2022 [facility] 12:51 PM HEALTH Advanced adenoma of the colo rectum is defined by the [employer] (ACG) as an adenoma that is 1 cm or more in size, contains an appreciable villous component, or has high grade d CDT LABORATORY-C ysplasia (Jj VERA; Polyp Luis deline: Diagnosis, Treatment, and Surveillance for Patients with Colorectal Polyps. Am J Gastroenterol 2000;95(11):2771-5837). This polyp qualifies as such. Patients with adv ENTRAL anced adenomas are at increa sed risk for synchronous and metachronous additional advanced adenomas. Close follow-up is suggested. LABORATORY Specimen A seen with Dr. Kostas Samuel. B.C) The histologic changes are typical of the collagenous colitis form of microscopic colitis. The diagnosis of microscopic colitis is further supported by the history of chronic diarrhea. I note that in 2011 the microscopic coli tis was classified as lymphocytic but currently it fits better for collagenous colitis. This transition is not uncommon. Some cases of collagenous co litis have been associated with medication use; high likelihood associations include NSAIDs, ASA, lansoprazole, ranitidine, sertraline, ticlopidine, and acarbose, with many o ther medications having been implicated as well. I note that the patient is on sertraline; if symptoms correlate with sertraline use consideration for substitution of this medication would be reasonable. Results discussed via secure chat with Dr. David Peñaloza on 03/08/2022 at 12:50 PM. Clinical Ms. Ba is a 03/08/2022 [facility] Information 72 y.o. with 12:51 PM HEALTH chronic diarrhea CDT LABORATORY-C and biopsies which ENTRAL showed lymphocytic LABORATORY colitis on 08/04/2012. Has abnormal PET scan of the GI tract which prompted colonoscopy which showed a frond-like villous large mass in the cecum measuring 4 cm in length. This filled the entire cecum, biopsies obtained. Random biopsies to evaluate for microscopic colitis also obtained. Gross A) Received in formalin are multiple roa mucosal fragments averaging 3 mm in greatest dimension, which are entirely submitted in one cassette. It is labeled with the patient's name and designated A, cecum biopsy. 03/08/2022 [facility] Description 12:51 PM HEALTH B) Received in formalin are 4 roa mucosal fragments averaging 4 mm in greatest dimension, which are entirely submitted in one cassette. It is labeled with the patient's name and designated B, ascending colon biopsy. CDT LABORATORY-C ENTRAL C) Received in formalin are 6 roa mucosal fragments averaging 3 mm in greatest dimension, which are entirely submitted in one cassette. It is labeled with the patient's name and designated C, descending colon biopsy. LABORATORY ANA CRISTINA MALONE 03/07/2022 9:00 AM Microscopic The final 03/08/2022 [facility] Description diagnosis is based 12:51 PM HEALTH on microscopic CDT LABORATORY-C examination of ENTRAL appropriate LABORATORY sections of all specimens. Additional 03/08/2022 [facility] Information Interpreted at [facility], Central Laboratory - [address], [place] [address] 12:51 PM HEALTH CDT LABORATORY-C ENTRAL LABORATORY Specimen Anatomical Collection Method Collection Time Receive d Time (Source) Location / / Volume Laterality Other (Cecum Non-Blood / 03/06/2022 2:27 PM 2 4:00 Biopsy) Unknown CDT PM CDT Specimen Non-Blood / 03/06/2022 2:32 PM 2 4:00 (specimen) Unknown CDT PM CDT (Ascending Colon Biopsy) Specimen 03/06/2022 2:35 PM 2 4:00 (specimen) CDT PM CDT (Descending Colon Biopsy) David Peñaloza MD PATHOLOGY/CYTOLOGY Performing Organization Address City/State/ZIP Code Phon e Number [place] [address] [place] [address] LABORATORY-CENTRAL 2000 LABORATORY COLONOSCOPY (03/06/2022 1:43 PM CDT) Specimen (Source) Anatomical Collection Method Collection Time Re ceived Time Location / / Volume Laterality 03/06/2022 1:43 PM CDT Narrative This result has an attachment that is no t available. Transcriptions David Peñaloza MD - 03/06/2022 2: 49 PM CDT Patient Name: Ursula Ba Procedure D ate: 03/06/2022 Gender: Female Date of : 1950 Admit Type: Outpatient Procedure: Colonoscopy Proceduralist: David Peñaloza MD , Lela Lee, BROOKLYNN (Nurse) Referring MD: Monica Santos Indications/Pre-Op Diagnosis: Chronic di arrhea, Abnormal PET scan of the GI tract, Microscopic colitis Medications: Fentanyl 200 micrograms IV, Midazolam 4 mg IV, The level of sedation administered was moderate Procedure Description: The patient had risks, benefits and alt ernatives explained to and gave informed consent. The patient had a sta ble cardiopulmonary status and judged an adequate candidate for consci ous sedation. The [id number] was passed throu gh the anus and advanced to the cecum, identified by appendiceal orific e and ileocecal valve. The colonoscopy was performed without diffi culty. The patient tolerated the procedure well. The quality of the hill l preparation was good. The ileocecal valve, appendiceal orifice, a nd rectum were photographed. Complications: No immediate complication s. Estimated Blood Loss & Specimen: Estimated blood loss: none. Specimen co llected - Yes and sent to Laboratory Findings: The perianal and digital rectal examina tions were normal. A frond-like/villous large mass was fou nd in the cecum. The mass measured four cm in length. Oozing was present. The mass filled the entire cecum. This was biopsied with a cold forceps for histology. Multiple small-mouthed diverticula were found in the sigmoid colon. There was narrowing of the colon in ass ociation with the diverticular opening. Biopsies for histology were taken with a cold forceps from the ascending colon and descending colon for evaluati on of microscopic colitis. The exam was otherwise without abnormal ity. Impressions/Post-Op Diagnosis: - Tumor in the cecum. Biopsied. - Severe diverticulosis in the sigmoid colon. There was narrowing of the colon in association with the diverticu lar opening. - The examination was otherwise normal. - Biopsies were taken with a cold force ps from the ascending colon and descending colon for evaluation of micr oscopic colitis. Recommendation: - Patient has a contact number availabl e for emergencies. The signs and symptoms of potential delayed complicat ions were discussed with the patient. Return to normal activities to [place]. Written discharge instructions were provided to the patie nt. - Resume previous diet. - Continue present medications. - Await pathology results. - Repeat colonoscopy is recommended. Th e colonoscopy date will be determined after pathology results from today's exam become available for review. Moderate Sedation: Moderate (conscious) sedation was admin istered by the endoscopy nurse and supervised by the endoscopist. The following parameters were monitored: oxygen saturation, heart rat e, respiratory rate, blood pressure, adequacy of pulmonary ventila tion and reponse to care. Please refer to the patient's medical r ecord flowsheets and nursing notes for moderate sedation details. Total physician intraservice time was 2 8 minutes. David Peñaloza MD 03/06/2022 2:49:28 PM This report has been signed electronical ly. Note Initiated On: 03/06/2022 1:43 PM Procedure Code(s): --- Professional --- 07278, Colonoscopy, flexible; with biop sy, single or multiple Diagnosis Code(s): --- Professional --- D49.0, Neoplasm of unspecified behavior of digestive system K52.9, Noninfective gastroenteritis and colitis, unspecified K52.839, Microscopic colitis, unspecifi ed K57.30, Diverticulosis of large intesti ne without perforation or abscess without bleeding R93.3, Abnormal findings on diagnostic imaging of other parts of digestive tract CPT copyright 2020 [employer]. All rights reserved. The codes documented in this report are preliminary and upon tax audit manager review may be revised to meet current compliance re quirements. Scope In: 2:11:17 PM Scope Withdrawal Time 0 hours 10 minutes 30 seconds Scope Out: 2:36:35 PM David Peñaloza MD PROCEDURE ORD from Last 3 Months Insurance Payer Benefit Plan / Subscriber ID Effective Dates Phone Addre ss Type Group MEDICARE PART A MEDICARE PART A [id number] 2016-Presen ATTN: CLAIMS - HB USE ONLY HB ONLY t [address] [place] [address] MEDICARE PART B MEDICARE PART B [id number] 2021-Presen ATTN: CLAIMS - HB USE ONLY HB ONLY t [address] [place] [address] BLUE CROSS MR BLUE CROSS [id number] 2021-Presen [address] [address] [place] [facility] [place] [id number] BLUE CROSS BLUE CROSS [id number] 2021-Presen [address] [address] [place] [facility] [place] [id number] [address] [facility] (Home) THA [place] [phone] (Work) Care Teams Asset Administrator Relationship Specialty Start Date End Date Monica Santos PA PCP - General 01/07/08 [address] [place] [address]
--- OUTSIDE RECORDS SUMMARY | 2022-05-22 06:12 | XMS_ITS | Encounter Summary ---
:1950 Author Organization [facility] Address [address] [place] [address] Care Team Providers Name Role Phone Unavailable Primary Care Provider Unavailable Encounter Details Date Type Department Care Team Description 04/27/2022 Orders Only Division of Hematology Delmis Sotelo M.D., Kareen or Cecum Villous in [facility] alvin Ph.D. (Primary Dx) [address] [facility] [address] [place] [phone] Social History Tobacco Use Types Packs/Day Years Used Date Smoking Tobacco: Never Sex Assigned at Date Recorded Not on file documented as of this encounter Plan of Treatment Not on filedocumented as of this encounter Visit Diagnoses Diagnosis Tumor Cecum Villous - Primary documented in this encounter
--- OUTSIDE RECORDS SUMMARY | 2022-05-22 06:12 | XMS_ITS | Encounter Summary ---
:1950 Author Organization [facility] Address [address] [place] [address] Care Team Providers Name Role Phone Unavailable Primary Care Provider Unavailable Encounter Details Date Type Department Care Team Description 04/26/2022 Clinical Communication Division of Hematology Delmis Sotelo M.D., in [facility] Ph.D. [address] [facility] [address] [place] [phone] Social History Tobacco Use Types Packs/Day Years Used Date Smoking Tobacco: Never Sex Assigned at Date Recorded Not on file documented as of this encounter Miscellaneous Notes Addendum Note - Natividad Santoyo, RPopeyeN. - 04/27/2022 3:15 PM CDT Addended by: NATIVIDAD SANTOYO on: 04/27/2022 03:15 PM Modules accepted: Orders documented in this encounter Plan of Treatment Not on filedocumented as of this encounter Visit Diagnoses Diagnosis Tumor Cecum Villous - Primary documented in this encounter
--- OUTSIDE RECORDS SUMMARY | 2022-05-22 06:12 | XMS_ITS | Encounter Summary ---
:1950 Author Organization [facility] Address [address] [place] [address] Care Team Providers Name Role Phone Unavailable Primary Care Provider Unavailable Encounter Details Date Type Department Care Team Description 04/26/2022 Orders Only Division of Hematology in Rhett Sotelo i, M.D., Ph.D. [address] [place] [phone] (Wo rk) Social History Tobacco Use Types Packs/Day Years Used Date Smoking Tobacco: Never Sex Assigned at Date Recorded Not on file documented as of this encounter Plan of Treatment Not on filedocumented as of this encounter Visit Diagnoses Not on filedocumented in this encounter
--- OUTSIDE RECORDS SUMMARY | 2022-05-22 06:12 | XMS_ITS | Encounter Summary ---
:1950 Author Organization [facility] Address [address] [place] [address] Care Team Providers Name Role Phone Unavailable Primary Care Provider Unavailable Reason for Visit Reason Comments New Patient Multiple Myeloma Encounter Details Date Type Department Care Team Description 04/23/2022 Clinical Communication Division of Meron Rowell New Patient; Hematology in S, R.N., Multiple Myelo ma [place], [place]. [place] [address] [address] [facility] [address] [place] [address] [phone] Social History Tobacco Use Types Packs/Day Years Used Date Smoking Tobacco: Never Sex Assigned at Date Recorded Not on file documented as of this encounter Miscellaneous Notes Telephone Encounter - Meron Rowell R.N., O.C.N. - 04/23/2022 9:05 AM CDT Images from the original note were not included. Dr. Sotelo - Wilfredo are scheduled to meet with Ursula Ba is a 72 y.o. female 04/23/2022 who is referred for Multiple Myeloma, however, test results indicate multiple malignancies. The records are not fully downloading from Care Everywhere, but there is a faxed report from Dr. Luci Croft that provides a fair amount of information, which I have tried to outline below. There is also a note from Dr. Sutton regarding colon cancer that also provides information. Please see bookmarks. WICHITA: December 2021 she was seen by PCP for a 2 1/2 month history of feeling unwell including GI symptoms of nausea, vomiting and diarrhea with unintentional weight loss of 11 pounds in four months. She reported feeling short of breath and had acute onset of back pain. She was noted to have lower extremity swelling, ultrasound negative for DVT. 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 She was referred to hematology for additional testing as outlined below. As a result of a comprehensive diagnostic evaluation, she has been found to have multiple myeloma, CLL, and high-grade invasive adenocarcinoma of the colon. Notes indicate that she will be started on treatment for multiple myeloma with CyBorD. March 2022: Hgb: 9.2 Plts: 195K Cr 1.3 C 9.3 B2M 5.0 LD 519 Total Protein 8.5 Albumin 4.4 Immunoglobulins (mg/dL): IgG 2321; IgA 36; IgM <10 FLC Assay (mg/L) kappa 17.03; lambda 288.71; K:L ratio 0.06 SPEP: M-spike 2.01 UPEP: 24-hour, Total 919; Lambda 877.32 mg/d; monoclonal free lambda light chain Pathology: 04/05/2022 Bone Marrow: consistent with two amuro phenotypic Jorge A distinct mature small B-cell neoplasms, CD5 negative and CD10 negative Lambda restricted small mature B cell population involving 40% of celularity plus chronic lymphocytic leukemia involving 10 to 20% marrow cellularity plus Lambda restricted plasma cell population. MYD88 pending. Chromosome Analysis: Positive for a trisomy 12 clone. 13q-/CEP12 FISH: Positive for 2 unrelated abnormal clones. One clone has Trisomy 12 as a sole abnormality. The second clone has a deletion of 13q14.3 as a sole abnormality. Patient underwent a colonoscopy on March 06, 2022. A 4 cm exophytic mass was found in the cecum. This was biopsied and biopsies came back as tubular adenoma with high-grade dysplasia. Patient also had random biopsies of the ascending and descending colon that showed collagenous colitis. Imagin03/22/2022 PET/CT: Plan, as outline by Dr. Croft: documented in this encounter Plan of Treatment Not on filedocumented as of this encounter Visit Diagnoses Not on filedocumented in this encounter
--- OUTSIDE RECORDS SUMMARY | 2022-05-22 06:12 | XMS_ITS | Encounter Summary ---
:1950 Author Organization [facility] Address [address] [place] [address] Care Team Providers Name Role Phone Unavailable Primary Care Provider Unavailable Reason for Visit Reason Comments records request Encounter Details Date Type Department Care Team Description 05/15/2022 Clinical Communication Division of Delmis Sotelo M.D., rec ords request Hematology in Ph.D. [place], [place] [address] [facility] [address] [place] [address] [phone] Social History Tobacco Use Types Packs/Day Years Used Date Smoking Tobacco: Never Sex Assigned at Date Recorded Not on file documented as of this encounter Miscellaneous Notes Telephone Encounter - Junie Ocampo - 05/15/2022 10:35 AM CDT Orly called to inform that Dr. Sutton at [facility] in [place] will be doing general surgery next week 05/22; they are requesting the visit notes from 04/23 and 04/30 and labs from 04/23 to be faxedto [phone] prior to next week. Thank you Junie [facility] documented in this encounter Plan of Treatment Not on filedocumented as of this encounter Visit Diagnoses Not on filedocumented in this encounter
--- OUTSIDE RECORDS SUMMARY | 2022-05-22 06:12 | XMS_ITS | Encounter Summary ---
:1950 Author Organization [facility] Address [address] [place] [address] Care Team Providers Name Role Phone Unavailable Primary Care Provider Unavailable Reason for Visit Reason Comments AQUILINO Encounter Details Date Type Department Care Team Description 04/23/2022 Clinical Communication Division of Hematology Delmis Sotelo M.D., AQUILINO in [facility] alvin Ph.D. [address] [facility] [address] [place] [phone] Social History Tobacco Use Types Packs/Day Years Used Date Smoking Tobacco: Never Sex Assigned at Date Recorded Not on file documented as of this encounter Miscellaneous Notes Telephone Encounter - Annabelle Porter - 04/24/2022 3:34 PM CDT BMB slides requested. Not yet signed off, they will send when they are available. Telephone Encounter - Sarah Dinero - 04/23/2022 4:13 PM CDT Patient Name: Ursula Ba Patient of Delmis Sotelo M.D., Ph.D. has asked [facility] to request outside materials from [facility] [place] [facility] Has the authorization been signed by patient, scanned to HIMS and Faxed to the [facility] team? YES REMINDER if no, please reach out to obtain and scan. Is this [facility] request urgent in which it is to be processed within 24 hours? no [facility]AA- Please process this outside material request. DOS-Route message to: P RST HEM TANYA MED AA Respond to if necessary: P RST HEM TANYA DESK 1 Thank you. documented in this encounter Plan of Treatment Not on filedocumented as of this encounter Visit Diagnoses Not on filedocumented in this encounter
--- OUTSIDE RECORDS SUMMARY | 2022-05-22 06:12 | XMS_ITS | Clinical Summary ---
:1950 Author Organization [facility] Address [address] [place] [address] Care Team Providers Name Role Phone Unavailable Primary Care Provider Unavailable Source Comments Patient records contain information from all sites at [facility]. For routine questions regarding patient records, call [phone] during business hours, M-F 8:00 AM - 5:00 PM Central Time. Record requests for emergency care only can be directed to [phone] at any time.[facility] Allergies Active Allergy Reactions Severity Noted Date Comments Adhesive Other (see comments) 04/23/2022 when it is going to be Tape-Silicones removed, it t ears off the first layer of skin Medications Medication Sig Dispensed Refills Start Date End Date Status potassium chloride Take 20 mEq by 0 Active (KLOR-CON) 20 mEq mouth. packet magnesium Take by mouth. 0 Activ e O-omeyju-fmchfuuyhbs 42 mg (500 mg)- 250 mg tablet extended release biotin 1 mg tablet Take by mouth 0 Active daily. mecobalamin (B12 Take by mouth. 0 Active ACTIVE ORAL) cholecalciferol, Take by mouth. 0 Active vitamin D3, (D3-2000 ORAL) UNABLE TO FIND Tumeric & Chelle 0 Active aspirin-acetaminophen- Take 1 tablet by 0 Active caffeine (EXCEDRIN mouth every 6 MIGRAINE) 250-250-65 (six) hours as mg per tablet needed for pain. Encounters Date Type Specialty Care Team Description 05/15/2022 Clinical Communication Hematology Delmis Sotelo M.D., rec ords request Ph.D. 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 Remission (HCC) 04/27/2022 Orders Only Hematology Delmis Sotelo M.D., Tumor Cecum V illous Ph.D. (Primary Dx) 04/26/2022 Clinical Communication Hematology Delmis Sotelo M.D., Ph.D. 04/26/2022 Orders Only Hematology Delmis Sotelo M.D., Multiple Myel moise Ph.D. Not Having Achi eved Remission (HCC) (Primary Dx) 04/26/2022 Orders Only Hematology Delmis Sotelo M.D., Ph.D. 04/23/2022 Hospital Encounter Laboratory Delmis Sotelo M.D., Multipl e Myeloma Not Having Achieved Remission (HCC); Medicine Ph.D. 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 04/23/2022 Clinical Communication Hematology Meron Rowell New Patient; S, R.N., O.C.N. Multiple Mye romario 04/23/2022 Clinical Communication Hematology Delmis Sotelo M.D., New Patient; Ph.D. 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 - - Inhaled Oxygen Concentration - - Weight 71.6 kg (157 lb 15.4 oz) 04/23/2022 2:17 PM CDT Height 168.6 cm (5' 6.38) 04/23/2022 2:17 PM CDT Body Mass Index 25.21 04/23/2022 2:17 PM CDT Plan of Treatment Health Maintenance Due Date Last Done Comments Bone Density Scan (Osteoporosis 1950 Screen) CT Colonography 1950 Cologuard 1950 Hepatitis C Screening 1950 Mammogram 1950 Zoster Vaccines (1 of 2) 04/24/2013 02/27/2013 Depression Screening (Annual 09/02/2021 PHQ-2) Fall Risk Screen (Annual) 09/02/2021 COVID-19 Vaccine (5 - Booster for 03/21/2022 01/24/2022, , Pfizer series) 11/27/2020, Additional history exists Office Visit for Blood Pressure 07/24/2022 04/23/2022 Check / Re-check DTaP,Tdap,and Td Vaccines (2 - 09/30/2022 09/30/2012, 09/30, Tdap) 05/24/2005 Creatinine Level 04/23/2023 04/23/2022, 07/06/2021, 05/24/2020, Additional history exists Potassium Level 04/23/2023 04/23/2022, 07/06/2021, 05/24/2020, Additional history exists Sodium Level 04/23/2023 04/23/2022, 07/06/2021, 05/24/2020, Additional history exists Fasting Glucose for Diabetes 04/23/2025 04/23/2022, 021, Screening 05/24/2020, Additional history exists Colonoscopy 03/06/2027 03/06/2022 Colorectal Cancer Surveillance 03/06/2027 Pneumococcal vaccine (65+ years) Completed 09/26/2017, Influenza Vaccine Completed 05/11/2022, 06/13/2021, 06/30/2020, Additional history exists Procedures Procedure Name Priority Date/Time Associated Comments Diagnosis MORPHOLOGY EVAL Routine 04/23/2022 4:35 Results f or (SPECIAL SMEAR) PM CDT this procedu re are in the results section. HEMATOPATHOLOGY REVIEW Routine 04/23/2022 4:35 Re sults for PM CDT this procedure are in the results section. DIRECT ANTIGLOBULIN Routine 04/23/2022 4:35 Resul ts for TEST (POLYSPECIFIC) PM CDT this pro cedure are in the results section. RETICULOCYTE PROFILE, Routine 04/23/2022 4:35 Leukemia Res ults for B PM CDT Lymphocytic this procedure Chronic Not are in the Having Achieved results Remission (HCC) section. DIRECT ANTIGLOBULIN Routine 04/23/2022 4:35 Leukemia Resul ts for TEST (POLYSPECIFIC) PM CDT Lymphocytic this pro cedure Chronic Not are in the Having Achieved results Remission (HCC) section. IMMUNOGLOBULINS (IGG, Routine 04/23/2022 4:35 Multiple Myeloma Results for IGA, AND IGM), S PM CDT Not Having this proced ure Achieved are in the Remission (HCC) results Leukemia section. Lymphocytic Chronic Not Having Achieved Remission (HCC) Tumor Cecum Villous URIC ACID, S/P Routine 04/23/2022 4:35 Multiple Myeloma Result s for PM CDT Not Having this procedure Achieved are in the Remission (HCC) results Leukemia section. Lymphocytic Chronic Not Having Achieved Remission (HCC) Tumor Cecum Villous SODIUM, S/P Routine 04/23/2022 4:35 Multiple Myeloma Results for PM CDT Not Having this procedure Achieved are in the Remission (HCC) results Leukemia section. Lymphocytic Chronic Not Having Achieved Remission (HCC) Tumor Cecum Villous POTASSIUM, S/P Routine 04/23/2022 4:35 Multiple Myeloma Result s for PM CDT Not Having this procedure Achieved are in the Remission (HCC) results Leukemia section. Lymphocytic Chronic Not Having Achieved Remission (HCC) Tumor Cecum Villous PLASMA CELL Routine 04/23/2022 4:35 Multiple Myeloma Results for ASSESSMENT, B PM CDT Not Having this procedure Achieved are in the Remission (HCC) results Leukemia section. Lymphocytic Chronic Not Having Achieved Remission (HCC) Tumor Cecum Villous PHOSPHORUS Routine 04/23/2022 4:35 Multiple Myeloma Results for (INORGANIC), S PM CDT Not Having this procedur e Achieved are in the Remission (HCC) results Leukemia section. Lymphocytic Chronic Not Having Achieved Remission (HCC) Tumor Cecum Villous MONOCLONAL GAMMOPATHY Routine 04/23/2022 4:35 Multiple Myeloma Results for DIAGNOSTIC, S PM CDT Not Having this procedure Achieved are in the Remission (HCC) results Leukemia section. Lymphocytic Chronic Not Having Achieved Remission (HCC) Tumor Cecum Villous LACTATE DEHYDROGENASE Routine 04/23/2022 4:35 Multiple Myeloma Results for (LD), S PM CDT Not Having this procedure Achieved are in the Remission (HCC) results Leukemia section. Lymphocytic Chronic Not Having Achieved Remission (HCC) Tumor Cecum Villous GLUCOSE, FASTING, S/P Routine 04/23/2022 4:35 Multiple Myeloma Results for PM CDT Not Having this procedure Achieved are in the Remission (HCC) results Leukemia section. Lymphocytic Chronic Not Having Achieved Remission (HCC) Tumor Cecum Villous CREATININE WITH EGFR, Routine 04/23/2022 4:35 Multiple Myeloma Results for S/P PM CDT Not Having this procedure Achieved are in the Remission (HCC) results Leukemia section. Lymphocytic Chronic Not Having Achieved Remission (HCC) Tumor Cecum Villous C-REACTIVE PROTEIN Routine 04/23/2022 4:35 Multiple Myeloma Re sults for (CRP), S/P PM CDT Not Having this procedure Achieved are in the Remission (HCC) results Leukemia section. Lymphocytic Chronic Not Having Achieved Remission (HCC) Tumor Cecum Villous CBC NO CALL BACK, Routine 04/23/2022 4:35 Multiple Myeloma Res ults for REFLEX T/S PM CDT Not Having this procedure Achieved are in the Remission (HCC) results Leukemia section. Lymphocytic Chronic Not Having Achieved Remission (HCC) Tumor Cecum Villous CALCIUM, TOT, S/P Routine 04/23/2022 4:35 Multiple Myeloma Res ults for PM CDT Not Having this procedure Achieved are in the Remission (HCC) results Leukemia section. Lymphocytic Chronic Not Having Achieved Remission (HCC) Tumor Cecum Villous BUN (BLOOD UREA Routine 04/23/2022 4:35 Multiple Myeloma Resul ts for NITROGEN), S/P PM CDT Not Having this procedur e Achieved are in the Remission (HCC) results Leukemia section. Lymphocytic Chronic Not Having Achieved Remission (HCC) Tumor Cecum Villous BILIRUBIN, TOT, S/P Routine 04/23/2022 4:35 Multiple Myeloma R esults for PM CDT Not Having this procedure Achieved are in the Remission (HCC) results Leukemia section. Lymphocytic Chronic Not Having Achieved Remission (HCC) Tumor Cecum Villous BILIRUBIN DIRECT, S/P Routine 04/23/2022 4:35 Multiple Myeloma Results for PM CDT Not Having this procedure Achieved are in the Remission (HCC) results Leukemia section. Lymphocytic Chronic Not Having Achieved Remission (HCC) Tumor Cecum Villous BICARBONATE, B/S/P Routine 04/23/2022 4:35 Multiple Myeloma Re sults for PM CDT Not Having this procedure Achieved are in the Remission (HCC) results Leukemia section. Lymphocytic Chronic Not Having Achieved Remission (HCC) Tumor Cecum Villous [id number] Routine 04/23/2022 4:35 Multiple Myeloma Results for (BETA-2-M), S PM CDT Not Having this procedure Achieved are in the Remission (HCC) results Leukemia section. Lymphocytic Chronic Not Having Achieved Remission (HCC) Tumor Cecum Villous ASPARTATE Routine 04/23/2022 4:35 Multiple Myeloma Results for AMINOTRANSFERASE PM CDT Not Having this proced ure (AST), S/P Achieved are in the Remission (HCC) results Leukemia section. Lymphocytic Chronic Not Having Achieved Remission (HCC) Tumor Cecum Villous ALKALINE PHOSPHATASE, Routine 04/23/2022 4:35 Multiple Myeloma Results for S/P PM CDT Not Having this procedure Achieved are in the Remission (HCC) results Leukemia section. Lymphocytic Chronic Not Having Achieved Remission (HCC) Tumor Cecum Villous 25-HYDROXYVITAMIN D2 Routine 04/23/2022 4:35 Multiple Myeloma Results for AND D3, S PM CDT Not Having this procedure Achieved are in the Remission (HCC) results Leukemia section. Lymphocytic Chronic Not Having Achieved Remission (HCC) Tumor Cecum Villous LEUKEMIA/LYMPHOMA Routine 04/23/2022 4:30 Results for PHENOTYPE, B PM CDT this procedure are in the results section. INTERPRETATION OF RAD - Routine 04/23/2022 3:56 Multiple Myeloma Re sults for OUTSIDE [place] PET SCAN (most inpatients PM CDT Not Having this procedure and all Achieved are in the outpatients) Remission (HCC) results Leukemia section. Lymphocytic Chronic Not Having Achieved Remission (HCC) Tumor Cecum Villous CD49D CELL EXPRESSION Routine 04/23/2022 Result s for EVALUATION, VARIES 10:02 AM CDT this proc edure are in the results section. OUTSIDE FL GI Routine 04/12/2022 9:35 Results for AM CDT this procedure are in the results section. OUTSIDE NM PET Routine 03/22/2022 2:20 Results fo r PM CDT this procedure are in the results section. from Last 3 Months Results (ABNORMAL) Reticulocyte Profile (04/23/2022 4:35 PM CDT) [facility] gist Method Time [facility] Reticulocytes, B 1.81 0.60 - 04/23/2022 DTL [...] Organization Address City/State/ZIP Code Phon e Number [facility] - [address] [place], [place] [address] [facility] [place] [address] Laboratories-[facility] [address] (ABNORMAL) Monoclonal Gammopathy Diagnostic (04/23/2022 4:35 PM CDT) Component Value Ref Range Test Analysis Performed Pathologis t Method Time At [facility] Therapeutic No 04/24/2022 [facility] Antibody 6:42 AM CDT Administered? Total Protein, 8.0 (H) 6.3 - 7.9 04/24/2022 [facility] S g/dL 7:52 AM CDT [place] Free 1.16 0.3300 - 04/24/2022 [facility] Light Chain, S 1.94 mg/dL 12:25 PM CDT [place] Free 17.7 (H) 0.5700 - 04/24/2022 [facility] Light Chain, S 2.63 mg/dL 12:40 PM CDT [place]/Lambda 0.0655 (L) 0.2600 - 04/24/2022 [facility] FLC [...] progression to myeloma or related malignancy. 04/25/2022 [facility] Isotype ~Suggest 24-hr urine Monoclonal Protein Studies. 9:08 AM CDT MALDI-TOF MS Comment: ----ADDITIONAL INFORMATION---- The submitted sample was assayed by five separate immunopurifications for IgG, IgA, IgM, kappa and lambda. ??The r esult reflects the findings of either no monoclonal protein detected or those monoclonal immunoglobulins that were detected. This test was developed and its performa nce characteristics determined by [facility] in a manner consistent with CLIA requirements. This test has not been cleared or approved by the U.S. Savi d and Drug Administration. Specimen Anatomical Collection Method Collection Time Receive d Time (Source) Location / / Volume Laterality Blood (Blood, 04/23/2022 4:35 PM 04/24/20 6:40 Venous) CDT AM CDT Narrative [facility] - 04/25/2022 9:08 AM CDT Specimen Information: Specimen ID: [id number] Specimen Type: Blood Specimen Collection Start Date: 04/23/20 ??4:35 PM Specimen Received Date: 04/24/2022 ??6:4 0 AM Specimen ID: [id number] Specimen Type: Blood Specimen Collection Start Date: 04/23/20 ??4:35 PM Specimen Received Date: 04/24/2022 ??6:4 2 AM Delmis Sotelo M.D., Ph.D. LAB BLOOD ADD-ON Performing Organization Address City/[facility]/ZIP Code Phon e Number [facility] [address] [place] [id number] [address] [place] [address] [place] [address] Laboratory Medicine and Pathology [facility] [place] [address] [place] Direct Antiglobulin Test (Polyspecific) (04/23/2022 4:35 PM CDT) [facility] Method Time Signature Direct Negative Negative 04/23/2022 [facility] Antiglobulin 8:23 PM CDT Test, Polyspecific Comment: If clinical suspicion of Hemolytic Anemi [place], [place] [phone] for more information. Specimen Anatomical Collection Method Collection Time Receive d Time (Source) Location / / Volume Laterality Blood 04/23/2022 4:35 PM 2 5:02 CDT PM CDT Delmis Sotelo M.D., Ph.D. LAB BLOOD BANK TEST ORDERABL ES Performing Organization Address City/State/ZIP Code Phon e Number [facility] - [address] [place] [address] [facility] [place] [address] Laboratories-[address] Hematopathology Review (04/23/2022 4:35 PM CDT) Component Value Ref Test Analysis [facility]formed At [facility] Range Method Time Signature 04/25/2022 [facility] 2:02 PM CDT Report Graham Robles D.O., M.S. 022 [facility] electronically 2:02 PM CDT signed by I verify that I have examined all relevant slides/materials for the specimen(s) and rendered or confirmed the diagnosis. Interpretation The morphologic and flow cytometric findings support a 04/25/2022 [facility] diagnosis of chronic lymphocytic leukemia (CLL). 2:02 PM CDT Specimen Anatomical Collection Method Collection Time Receive d Time (Source) Location / / Volume Laterality Blood 04/23/2022 4:35 PM 4:57 CDT PM CDT Delmis Sotelo M.D., Ph.D. LAB PATHOLOGY/CYTOLOGY ORDER NOEMI Performing Organization Address City/State/ZIP Code Phon e Number [facility] - [address] [place] [id number] Laboratories-[address] (ABNORMAL) Morphology Evaluation (Special smear) (04/23/2022 4:35 PM CDT) Analysis Performed At Path logist Time Signature Neutrophilic Segs 34 (L) 50 - 75 % 04/24/2022 [facility] 11:33 AM CDT Lymphocytes 57 (H) 18 - 42 % 04/24/2022 PM 11:33 AM CDT Monocytes 5 2 - 11 % 04/24/2022 [facility] 11:33 AM CDT Eosinophils 3 1 - 3 % 04/24/2022 [facility] 11:33 AM CDT Basophils 1 0 - 2 % 04/24/2022 [facility] 11:33 AM CDT Fragile Cells Slight 04/24/2022 [facility] 11:33 AM CDT Manual Absolute 5.30 1.56 - 04/24/2022 [facility] Neutrophil Count 6.45 11:33 AM CDT x10(9)/L Comment: ----ADDITIONAL INFORMATION---- The manual absolute neutrophil count is derived from a manual differential count and therefore is not exactly comparable to the automated absolute rohit trophil count. Specimen Anatomical Collection Method Collection Time Receive d Time (Source) Location / / Volume Laterality Blood 04/23/2022 4:35 PM 4:57 CDT PM CDT Delmis Sotleo M.D., Ph.D. LAB PATHOLOGY/CYTOLOGY ORDER NOEMI Performing Organization Address City/State/ZIP Code Phon e Number [facility] - [address] [place], [place] [address] [place] [address] Laboratories-[facility] [address] (ABNORMAL) CBC no call back, reflex T/S HGB <8 (04/23/2022 4:35 PM CDT) [facility] gist Method Time Signature Hemoglobin 11.6 11.6 [...] LAB BLOOD NON ADD-ON Performing Organization Address [facility] Phon e Number [facility] - [address] [place], [place] [address] [place] [address] Plasma Cell Assessment (04/23/2022 4:35 PM CDT) Component Value Ref Test Analysis [facility] Method Time Signature Blood Plasma [...] reagent. Its performance characteristics were determined by [facility] in a manner consistent with CLIA requirements. [...] LAB BLOOD NON ADD-ON Performing Organization Address City/[facility] Phon e Number [facility] - [address] [place], [place] [address] [place] [address] [facility]-[address] (ABNORMAL) 25-Hydroxyvitamin D2 and D3 (04/23/2022 4:35 PM CDT) athologist Signature 25-Hydroxy D2 <4.0 ng/mL 04/24/2022 [facility] 10:10 PM CDT 25-Hydroxy D3 88 ng/mL 04/24/2022 [facility] 10:10 PM CDT 25-Hydroxy D 88 (H) ng/mL 04/24/2022 [facility] Total 10:10 PM CDT Comment: Interpretation: >80 ng/mL (toxicity poss ible) ----REFERENCE VALUE---- 25-HYDROXY D TOTAL (D2+D3) Optimum level s in the healthy population are 20-50, patients with bone disease may benefit from higher levels within this r karla. ----ADDITIONAL INFORMATION---- This test was developed and its performa nce characteristics determined by [facility] in a manner consistent with CLIA requirements. This test has not been cleared or approved by the U.S. Savi d and Drug Administration. Specimen Anatomical Collection Method Collection Time Receive d Time (Source) Location / / Volume Laterality Blood (Blood, 04/23/2022 4:35 PM 04/24/20 7:42 Venous) CDT AM CDT Delmis Sotelo M.D., Ph.D. LAB BLOOD ADD-ON Performing Organization Address City/[facility] Phon e Number [facility] [address] [place], [place] [address] [facility] [place] [address] Laboratory Medicine and Pathology [address] [place] Direct Antiglobulin Test (Poly) (04/23/2022 4:35 PM CDT) [facility] Signature Direct See Addl Negative 04/23/2022 ET Antiglobulin Testing 8:23 PM CDT Test, Polyspecific Specimen Anatomical Collection Method Collection Time Receive d Time (Source) Location / / Volume Laterality Blood (Blood, 04/23/2022 4:35 PM 04/23/20 5:02 Venous) CDT PM CDT Delmis Sotelo M.D., Ph.D. LAB BLOOD BANK TEST ORDERABL ES Performing Organization Address City/[facility] Phon e Number [facility] - [address] [place], [place] [address] [place] [address] [facility] [address] (ABNORMAL) Immunoglobulins (IgG, IgA, and IgM) (04/23/2022 4:35 PM CDT) [facility] Method Time Signature Immunoglobulin A 32 (L) 61 - 356 04/24/2022 [facility] (IgA), S mg/dL 9:28 AM CDT Immunoglobulin M 5 (L) 37 - 286 04/24/2022 [facility] (IgM), S mg/dL 10:46 AM CDT Immunoglobulin G 2620 (H) 767 - 04/24/2022 [facility] (IgG), S 1590 10:46 AM CDT mg/dL Specimen Anatomical Collection Method Collection Time Receive d Time (Source) Location / / Volume Laterality Blood (Blood, 04/23/2022 4:35 PM 04/24/20 7:04 Venous) CDT AM CDT Delmis Sotelo M.D., Ph.D. LAB BLOOD ADD-ON Performing Organization Address City/[facility]/ZIP Code Phon e Number [facility] [address] [place], [place] [address] [facility] [place] [address] Laboratory Medicine and Pathology [address] [place] CRP (C-Reactive Protein) (04/23/2022 4:35 PM CDT) athologist Signature C-Reactive 7.4 <=8.0 mg/L 04/23/2022 DTL Protein (CRP), 5:39 PM CDT S Specimen Anatomical Collection Method Collection Time Receive d Time (Source) Location / / Volume Laterality Blood (Blood, 04/23/2022 4:35 PM 04/23/20 5:21 Venous) CDT PM CDT Delmis Sotelo M.D., Ph.D. LAB BLOOD ADD-ON Performing Organization Address City/State/ZIP Code Phon e Number [facility] - [address] [place], [place] [address] [facility] [place] [address] Laboratories-[facility] [address] Uric Acid (04/23/2022 4:35 PM CDT) P athologist Signature Uric Acid, S 5.9 2.7 - 6.1 04/23/2022 [facility]TL mg/dL 5:39 PM CDT Specimen Anatomical Collection Method Collection Time Receive d Time (Source) Location / / Volume Laterality Blood (Blood, 04/23/2022 4:35 PM 04/23/20 5:21 Venous) CDT PM CDT Delmis Sotelo M.D., Ph.D. LAB BLOOD ADD-ON Performing Organization Address City/[facility] Phon e Number [facility] - [address] [place], [place] [address] [place] [phone] [place] [address] (ABNORMAL) BUN (Blood Urea Nitrogen) (04/23/2022 4:35 [...] Ph.D. LAB BLOOD ADD-ON Performing Organization Address City/[facility] Phon e Number [facility] - [address] [place], [place] [address] [place] [phone] [place] [address] AST (Aspartate Aminotransferase) (04/23/2022 4:35 PM CDT) [facility] Method [facility] Signature Aspartate 26 8 - 43 04/23/2022 [facility]TL Aminotransferase U/L 5:39 PM CDT (AST), S Specimen Anatomical Collection Method Collection Time Receive d Time (Source) Location / / Volume Laterality Blood (Blood, 04/23/2022 4:35 PM 04/23/20 5:21 Venous) CDT PM CDT Delmis Sotelo M.D., Ph.D. LAB BLOOD ADD-ON Performing Organization Address City/[facility] Phon e Number [facility] - [address] [place], [place] [address] [place], [place] [id number] [place] [address] Sodium (04/23/2022 4:35 PM CDT) P athologist Signature Sodium, S 138 135 - 145 04/23/2022 5:39 DTL mmol/L PM CDT Specimen Anatomical Collection Method Collection Time Receive d Time (Source) Location / / Volume Laterality Blood (Blood, 04/23/2022 4:35 PM 04/23/20 5:21 Venous) CDT PM CDT Delmis Sotelo M.D., Ph.D. LAB BLOOD ADD-ON Performing Organization Address City/[facility]/ZIP Code Phon e Number [facility] - [address] [facility] Potassium (04/23/2022 4:35 PM CDT) P athologist Signature Potassium, S 4.5 3.6 - 5.2 04/23/2022 DTL mmol/L 5:39 PM CDT Specimen Anatomical Collection Method Collection Time Receive d Time (Source) Location / / Volume Laterality Blood (Blood, 04/23/2022 4:35 PM 04/23/20 5:21 Venous) CDT PM CDT Delmis Sotelo M.D., Ph.D. LAB BLOOD ADD-ON Performing Organization Address City/[facility]/ZIP Code Phon e Number [facility] - [address] (ABNORMAL) Phosphorus Inorganic (04/23/2022 4:35 PM CDT) P athologist Signature Phosphorus 4.9 (H) 2.5 - 4.5 04/23/2022 DTL (Inorganic), S mg/dL 5:39 PM CDT Specimen Anatomical Collection Method Collection Time Receive d Time (Source) Location / / Volume Laterality Blood (Blood, 04/23/2022 4:35 PM 04/23/20 5:21 Venous) CDT PM CDT Delmis Sotelo M.D., Ph.D. LAB BLOOD ADD-ON Performing Organization Address City/[facility]/ZIP Code Phon e Number [facility] - [address] Alkaline Phosphatase (04/23/2022 4:35 PM CDT) P athologist Signature Alkaline 67 35 - 104 04/23/2022 DTL Phosphatase, S U/L 5:39 PM CDT Specimen Anatomical Collection Method Collection Time Receive d Time (Source) Location / / Volume Laterality Blood (Blood, 04/23/2022 4:35 PM 04/23/20 5:21 Venous) CDT PM CDT Delmis Sotelo M.D., Ph.D. LAB BLOOD ADD-ON Performing Organization Address City/[facility] Phon e Number [facility] - [address] [place], [place] [address] [address] [place], [place] [id number] [place] [address] 200 [facility] LD (Lactate Dehydrogenase) (04/23/2022 4:35 PM CDT) Analysis [...] LAB BLOOD NON ADD-ON Performing Organization Address City/[facility] Code Phon e Number [facility] - [address] [place], [place] [address] [facility] [place] [address] [facility] [address] [facility] Glucose, Fasting (04/23/2022 4:35 PM CDT) P [...] LAB BLOOD NON ADD-ON Performing Organization Address City/State/ZIP Code Phon e Number [facility] - [address] [place], [place] [address] [place] [address] [facility] [address] [facility] (ABNORMAL) Creatinine with Estimated GFR (04/23/2022 4:35 PM CDT) Analysis Performed At Patho logist Time Signature Creatinine 1.22 (H) 0.59 - 04/23/2022 DTL 1.04 mg/dL 5:39 PM CDT eGFR-Non 45 (L) >=60 04/23/2022 DTL Black/ mL/min/BSA 5:39 PM CDT Nigerian Comment: ----ADDITIONAL INFORMATION---- Estimated GFR calculated using [...] Ph.D. LAB BLOOD ADD-ON Performing Organization Address City/State/[facility] Code Phon e Number [facility] - [address] [place] [address] [place] [address] Bicarbonate (04/23/2022 4:35 PM CDT) athologist [facility] Bicarbonate, S 24 22 - 29 04/23/2022 DTL mmol/L 5:39 PM CDT Specimen Anatomical Collection Method Collection Time Receive d Time (Source) Location / / Volume Laterality Blood (Blood, 04/23/2022 4:35 PM 04/23/20 5:21 Venous) CDT PM CDT Delmis Sotelo M.D., Ph.D. LAB BLOOD ADD-ON Performing Organization Address City/[facility] Phon e Number [facility] - [address] [place] [address] Calcium, Total (04/23/2022 4:35 PM CDT) athologist Signature Calcium, Total, 10.1 8.8 - 10.2 04/23/2022 DTL S mg/dL 5:39 PM CDT Specimen Anatomical Collection Method Collection Time Receive d Time (Source) Location / / Volume Laterality Blood (Blood, 04/23/2022 4:35 PM 04/23/20 5:21 Venous) CDT PM CDT Delmis Sotelo M.D., Ph.D. LAB BLOOD ADD-ON Performing Organization Address City/State/ZIP Code Phon e Number [facility] - [address] [place], [place] [address] [facility] [place], [place] [id number] [place] [address] Bilirubin, Direct (04/23/2022 4:35 PM CDT) P athologist Signature Bilirubin, <0.2 0.0 - 0.3 04/23/2022 DTL Direct, S mg/dL 5:39 PM CDT Specimen Anatomical Collection Method Collection Time Receive d Time (Source) Location / / Volume Laterality Blood (Blood, 04/23/2022 4:35 PM 04/23/20 5:21 Venous) CDT PM CDT Delmis Sotelo M.D., Ph.D. LAB BLOOD ADD-ON Performing Organization Address City/State/ZIP Code Phon e Number [facility] - [address] [place], [place] [address] [facility] [place], [place] [phone] [place] [address] Bilirubin, Total (04/23/2022 4:35 PM CDT) P athologist Signature Bilirubin, 0.4 <=1.2 mg/dL 04/23/2022 DTL Total, S 5:39 PM CDT Specimen Anatomical Collection Method Collection Time Receive d Time (Source) Location / / Volume Laterality Blood (Blood, 04/23/2022 4:35 PM 04/23/20 5:21 Venous) CDT PM CDT Delmis Sotelo M.D., Ph.D. LAB BLOOD ADD-ON Performing Organization Address City/State/ZIP Code Phon e Number [facility] - [address] [place], [place] [address] [facility] [address] [facility] [address] (ABNORMAL) Hlyw-8-Yekrnshkqheej (Beta-2-M) (04/23/2022 4:35 PM CDT) athologist [facility] Pahu-6-Oqblavw 5.70 (H) 1.21 - 04/24/2022 [facility] obulin, S 2.70 8:31 AM CDT mcg/mL Specimen Anatomical Collection Method Collection Time Receive d Time (Source) Location / / Volume Laterality Blood (Blood, 04/23/2022 4:35 PM 04/24/20 7:04 Venous) CDT AM CDT Delmis Sotelo M.D., Ph.D. LAB BLOOD ADD-ON Performing Organization Address City/State/ZIP Code Phon e Number [facility] [address] [place], [place] [address] [facility] [place] [address] Laboratory Medicine and Pathology [address] [place] Leukemia/Lymphoma Immunophenotyping by Flow Cytometry, Blood (04/23/2022 4:30 PM CDT) Component Value Ref Test Analysis Performed Pathologis t Range Method Time At [facility] LCMSB Result Performed 04/25/2022 DTL 1:55 PM CDT Final These results are considered preliminary and require complete integration 04/25/2022 DTL Diagnosis: with the current pathology c ase [id number] for final interpretation. ??The 1:55 PM result [...] received within validated jessica delines. Microscopic A Dlfjus-Obcdjm-trwyupi slid e prepared from the flow cytometry specimen is 04/25/2022 DTL Description examined. ??The specimen con tains small lymphocytes with round nuclear 1:55 PM contours, coarsely clumped chromatin and inconspicuous nucle artem. CDT Comment: ----ADDITIONAL INFORMATION---- This test was developed using an analyte specific reagent. Its performance characteristics were determined by [facility] in a manner consistent with CLIA requirements. [...] Ph.D. LAB GENETIC TESTING Performing Organization Address City/State/ZIP Code Phon e Number [facility] - [address] [place], [place] [address] [facility] [address] [facility]-[place] [address] Interpretation of Outside NM PET Scan (04/23/2022 3:56 PM CDT) Anatomical Region Laterality Modality Nuclear Medicine PET RST LOS, Nuclear Medicine ARZ LOS, N/A Nuclear Medicine Nuclear Medicine FLA LOS, Nuclear Medicine, Other, Neuroradiology ARZ LOS, Neuroradiology FLA LOS, Neuroradiology RST LOS, Body Specimen (Source) Anatomical Collection Method Collection Time Re ceived Time Location / / Volume Laterality 04/27/2022 11:20 AM CDT Impressions 04/27/2022 12:38 PM CDT 1. Stable mildly enlarged nodes both above and below the diaphragm with mild, slightly less intense uptake. 2. No hypermetabolic or lytic osseous le sions to suggest active plasmacytoma. 3. Intensely FDG avid cecal lesion likel y represents the biopsy-proven malignancy. Narrative 04/27/2022 12:38 PM CDT EXAM: ??INTERPRETATION OF OUTSIDE NM PET SCAN dated 03/22/2022. TECHNIQUE: ??F-18 Fluorodeoxyglucose (FD G) PET/CT scan was performed from the orbits through the thighs with CT fusion imaging for attenu ation correction and anatomic coregistration only. COMPARISON: ??PET/CT 01/11/2022 INDICATION: History of CLL and multiple myeloma. Recently diagnosed cecal adenocarcinoma. Subsequent treatment strategy. FINDINGS: ?? Again seen are multiple prominent and mi ldly FDG avid lymph nodes both above and below the diaphragm. These include multiple bilateral level 2 nodes; for example, a 6 x 9 mm left level 2 node (image 41). There are multiple prominent and fa intly FDG avid bilateral parotid lymph nodes, for example two adjacent 8 mm right parotid nodes on image 33. These are unchanged since previous study. There are multiple enlarged, mildly FDG avid, bilateral axillary nodes, with slightly less intense FDG uptake, which are stable in size sin ce the prior exam. The largest of these is a 22 x 16 mm left axillary node, SUV max 4.1 (image 78) ve rsus 4.8 on previous study. No FDG avid mediastinal or hilar nodes. There are multiple mildly enlarge d and faintly FDG avid retroperitoneal nodes, stable since the prior exam. For example, there is a 9 x 12 mm aortocaval node in the upper abdomen on image 161. Stable mildly enlarged pelvic lymph node s, including a mildly FDG avid 10 x 8 mm left common iliac node on image 198, SUV max 3.2 versus 3. 5 on previous study. Normal splenic size and FDG activity. No rmal bone marrow activity. No focal FDG avid osseous lesions to suggest hypermetabolic plasmacytomas. No worrisome lytic lesions on the low- dose CT images. There is focal activity in the cecum wit h an SUV max of 10.2 (image 236). This likely corresponds with the patient's biopsy-proven cecal m alignancy. Otherwise physiologic bowel activity. Additional findings on the low-dose nonc ontrast CT: Sequelae of prior granulomatous disease, including calcified pulmonary granulomas , calcified right hilar nodes, and calcified splenic/hepatic granulomas. Atherosclerotic calcificatio ns, including the coronary arteries. Colonic diverticula. Liquid stool in the cecum could be seen with diarrhea. Hysterectomy. Procedure Note Lizeth Ovalle M.D. - 04/27/2022Form atting of this note might be different from the original. EXAM: INTERPRETATION OF OUTSIDE NM PET S CAN dated 03/22/2022. TECHNIQUE: F-18 Fluorodeoxyglucose (FDG) PET/CT scan was performed from the orbits through the thighs with CT fusion imaging for attenu ation correction and anatomic coregistration only. COMPARISON: PET/CT 01/11/2022 INDICATION: History of CLL and multiple myeloma. Recently diagnosed cecal adenocarcinoma. Subsequent treatment strategy. FINDINGS: Again seen are multiple prominent and mi ldly FDG avid lymph nodes both above and below the diaphragm. These include multiple bilateral level 2 nodes; for example, a 6 x 9 mm left level 2 node (image 41). There are multiple prominent and fa intly FDG avid bilateral parotid lymph nodes, for example two adjacent 8 mm right parotid nodes on image 33. These are unchanged since previous study. There are multiple enlarged, mildly FDG avid, bilateral axillary nodes, with slightly less intense FDG uptake, which are stable in size sin ce the prior exam. The largest of these is a 22 x 16 mm left axillary node, SUV max 4.1 (image 78) ve rsus 4.8 on previous study. No FDG avid mediastinal or hilar nodes. There are multiple mildly enlarge d and faintly FDG avid retroperitoneal nodes, stable since the prior exam. For example, there is a 9 x 12 mm aortocaval node in the upper abdomen on image 161. Stable mildly enlarged pelvic lymph node s, including a mildly FDG avid 10 x 8 mm left common iliac node on image 198, SUV max 3.2 versus 3. 5 on previous study. Normal splenic size and FDG activity. No rmal bone marrow activity. No focal FDG avid osseous lesions to suggest hypermetabolic plasmacytomas. No worrisome lytic lesions on the low- dose CT images. There is focal activity in the cecum wit h an SUV max of 10.2 (image 236). This likely corresponds with the patient's biopsy-proven cecal m alignancy. Otherwise physiologic bowel activity. Additional findings on the low-dose nonc ontrast CT: Sequelae of prior granulomatous disease, including calcified pulmonary granulomas , calcified right hilar nodes, and calcified splenic/hepatic granulomas. Atherosclerotic calcificatio ns, including the coronary arteries. Colonic diverticula. Liquid stool in the cecum could be seen with diarrhea. Hysterectomy. IMPRESSION: 1. Stable mildly enlarged nodes both abo ve and below the diaphragm with mild, slightly less intense uptake. 2. No hypermetabolic or lytic osseous le sions to suggest active plasmacytoma. 3. Intensely FDG avid cecal lesion likel y represents the biopsy-proven malignancy. Delmis Sotelo M.D., Ph.D. [facility] PROCEDURES CD49d Cell Expression Evaluation, V (04/23/2022 10:02 AM CDT) [facility] gist Method Time Signature CEE49 Result Performed 04/25/2022 DTL 1:55 PM CDT CEE49 Final Peripheral blood, ??flow cytometric immunophenotypin04/25/2022 DTL Diagnosis 1:55 PM CDT CD49d is ??not expressed ??( 8 %) on MP51-knhfpp ve B cells (30% is the cutoff used for positivity). Cell Expression Evaluation panel: CD3, CD19, CD45 and CD49d. Reviewed by: ??Graham Robles D.O., M.S. Comment: ----ADDITIONAL INFORMATION---- This test was developed using an analyte specific reagent. Its performance characteristics were determined by [facility] in a manner consistent with CLIA requirements. [...] Ph.D. LAB BLOOD ADD-ON Performing Organization Address City/[facility]/ZIP Code Phon e Number [facility] - [address] [place], [place] [address] [facility] [place] [address] Laboratories-[facility] 200 [facility] barium enema w air contrast-Outside RF GI (04/12/2022 9:35 AM CDT) Specimen (Source) Anatomical Location Collection Method / Collectio n Time Received Time / Laterality Volume Narrative [facility] - 04/20/2022 9:14 AM CDT This order has been created and auto-finalized to support the import of outside images. If available, original i nterpretation can be found on the Media Tab in Chart Review, in Document V iewer, or as an image in QREADS. If a re-interpretation or overread is re quired please follow defined workflow. ?? Provider Not In System IMG FLUOROSCOPY PROCEDURES Performing Organization Address [facility] Code Phon e Number [facility] NA PET SKULL to MID THIGH-Outside NM Pet (03/22/2022 2:20 PM CDT) Specimen (Source) Anatomical Location Collection Method / Collectio n Time Received Time / Laterality Volume Narrative [facility] - 04/20/2022 9:27 AM CDT This order has been created and auto-finalized to support the import of outside images. If available, original i nterpretation can be found on the Media Tab in Chart Review, in Document V iewer, or as an image in QREADS. If a re-interpretation or overread is re quired please follow defined workflow. ?? Provider Not In System IMG NM PROCEDURES Performing Organization Address City/[facility]/ZIP Code Phon e Number I[facility] IIMS NA from Last 3 Months Insurance Payer Benefit Plan Subscriber ID Effective Phone Address Typ e / Group Dates MEDICARE MEDICARE A [id number] 2016-Pres [address] [place] [address] [employer] [place] [id number] 2021-Pres [phone] PO SHIV X Cost Share BLUE SHIELD BLUE COST ent [phone] [place] [address]
--- OUTSIDE RECORDS SUMMARY | 2022-05-22 06:12 | XMS_ITS | Encounter Summary ---
:1950 Author Organization [facility] Address [address] [place] [address] Care Team Providers Name Role Phone Unavailable Primary Care Provider Unavailable Reason for Visit Reason Comments New Patient Multiple Myeloma CLL Encounter Details Date Type Department Care Team Description 04/23/2022 Clinical Communication Division [facility] Hematology in M.D., Ph.D. Multiple Myeloma [place], [facility] [address] [facility] (CLL) [place], [place] [address] [place] [id number] [place], [place] [phone] (Work) [phone] Social History Tobacco Use Types Packs/Day Years Used Date Smoking Tobacco: Never Sex Assigned at Date Recorded Not on file documented as of this encounter Miscellaneous Notes Telephone Encounter - Meron Rowell R.N., O.C.N. - 04/23/2022 9:02 AM CDT This patient is scheduled to meet with Dr. Sotelo today, 04/23/2022 as an add-on. Indication: Multiple Myeloma. Additional diagnoses of CLL and invasive adenocarcinoma of the colon She had a bone marrow on 04/05/2022 that I believe was sent to [facility] for consultation. Would it be possible to get a pattern changer and repairer report for this pathology CHRISTA? Meron Rowell R.N., O.C.N. documented in this encounter Plan of Treatment Not on filedocumented as of this encounter Visit Diagnoses Not on filedocumented in this encounter
--- OUTSIDE RECORDS SUMMARY | 2022-05-22 06:13 | XMS_ITS | Encounter Summary ---
:1950 Author Organization [facility] Address [address] [place] [address] Care Team Providers Name Role Phone Unavailable Primary Care Provider Unavailable Reason for Referral Outpatient (Routine) - Closed Specialty Diagnoses / Procedures Referred By Contact Refer red To Contact Hematology Oncology Delmis Beck M.D., Ph.D. [facility] [address] [place] [address] Referral ID Status Reason Start Date Expiration Date Visits Requ ested Visits Authorized [id number] Closed 04/23/2022 04/22/2025 1 1 Scheduling Instructions Please have patient sign consent for out side bone marrow biopsy to be sent to [facility] for review. Reason for Visit Appointment Request (Routine) - Authorized Specialty Diagnoses / Procedures Referred By Contact Refer red To Contact Hematology Diagnoses Multiple Myeloma NOS Gammopathy Monoclonal Luci Croft M.D. [address] [place] [address] Referral ID Status Reason Start Date Expiration Date Visits V isits Requested Authorized [id number] Authorized 04/20/2022 04/20/2023 2 2 Encounter Details Date Type Department Care Team Description 04/23/2022 Comprehensive Visit Division of Delmis Beck M.D., Multip le Myeloma Not Having Achieved Remission (HCC) (Primary Dx); Hematology in Ph.D. 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); [place], [place] [address] [facility] Tumor Cecum Villous [address] [place] [id number] Social History Tobacco Use Types Packs/Day Years Used Date Smoking Tobacco: Never Sex Assigned at Date Recorded Not on file documented as of this encounter Last Filed Vital Signs Vital Sign Reading Time Taken Comments Blood Pressure 152/75 04/23/2022 2:17 PM CDT Pulse 71 04/23/2022 2:17 PM CDT Temperature 36.4 ??C (97.6 ??F) 04/23/2022 2:17 PM CDT Respiratory Rate - - Oxygen Saturation - - Inhaled Oxygen Concentration - - Weight 71.6 kg (157 lb 15.4 oz) 04/23/2022 2:17 PM CDT Height 168.6 cm (5' 6.38) 04/23/2022 2:17 PM CDT Body Mass Index 25.21 04/23/2022 2:17 PM CDT documented in this encounter Consult Notes Delmis Beck M.D., Ph.D. - 04/23/2022 2:30 PM CDT SUBJECTIVE CHIEF COMPLAINT / REASON FOR VISIT Urusla Ba is a 72 y.o. female presenting in referral from Luci Croft M.D. for consultationin the evaluation of concern for CLL, myeloma and high risk cecal mass for adenocarcinoma. HISTORY OF PRESENT ILLNESS Ms. Ba presents with her brother for evaluation of the above issue. She reports that she had long history of collagenous colitis and had been feeling more fatigued and unwell since prior to her pen[facility]ent[facility] about a year ago and eventually sought work-up by December of this year. Notably she has morethan 10 lb weight loss over several months, and has nausea, vomiting and diarrhea. In the recent 2-3months, she also note recurrent chills and drenching night sweats. Evaluation in December initially showed normal hemoglobin and platelet but by March, normocytic anemia with hemoglobin of 9.2. WBC elevated at 38, with mainly lymphocyte at 32, ANC 5.7. Creatinine slightlyelevated at 1.45 that improved to 1.3 in March. No hypercalcemia. M spike of 2. Lambda FLC 28.87, kappa FLC 1703; ratio 0.06. IgG 2321, IgA 36, IgM<10. 24 hour urine total protein 919 mg, lambda FLC 877 mg. Notably she underwent colonoscopy with biopsy of a 4 cm cecal mass. Biopsy report at outside showed tubular adenoma with dysplasia. There is concern for adenocarcinoma and surgical resection is recommended. Question is coordination of this procedure with management of her hematologic conditions. The following portions of the patient's history were reviewed and updated as appropriate: allergies,current medications, family history, medical history, social history, surgical history, and problem list. REVIEW OF SYSTEMS Constitutional: Positive for fatigue, night sweats and weight loss of more than 10 pounds. Skin: - Negative for skin rash. Gastrointestinal: Positive for diarrhea. Hematologic: - Negative for bruises or bleeds easily. Musculoskeletal: - Negative for pain or stiffness in the joints. Neurological: - Negative for light-headedness and loss of balance or tendency to fall easily. The following systems were negative: ENT, Respiratory, Cardiovascular, Genitourinary OBJECTIVE PHYSICAL EXAM Constitutional General: She is not in acute distress. HENT Mouth/Throat: Pharynx: Oropharynx is clear. Eyes General: No scleral icterus. Conjunctiva/sclera: Conjunctivae normal. Cardiovascular Rate and Rhythm: Normal rate. Heart sounds: Normal heart sounds. Pulmonary Effort: Pulmonary effort is normal. Breath sounds: Normal breath sounds. Abdominal General: Abdomen is flat. Bowel sounds are normal. Palpations: Abdomen is soft. Lymphadenopathy Cervical: No cervical adenopathy. Upper Body: Right upper body: No axillary adenopathy. Left upper body: No axillary adenopathy. Lower Body: No right inguinal adenopathy. No left inguinal adenopathy. Skin Coloration: Skin is not jaundiced. Findings: No rash. Neurological General: No focal deficit present. Mental Status: She is oriented to person, place, and time. 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 Will request radiologist review, specifically for lytic bone lesions. Will request tissue from outside BM biopsy for review here. From what I can tell, there's about 20% BM involvement of CLL cells, but percent of myeloma cells is not clear. Will obtain blood tests to ascertain amount and trend of monoclonal proteins. Based on all these results, will determine acuity of need for treatment of hematologic malignancies.At this time, the main issue that I could see is anemia, and it is unclear which one of the underlying conditions is contributing to this. She does have B-symptoms and will likely benefit from treatment. However I suspect she may have some time to allow for resection of the cecal mass and post-operative recovery. Will request consult with our colorectal surgeon to review and discuss. documented in this encounter Miscellaneous Notes Addendum Note - Delmis Beck M.D., Ph.D. - 04/23/2022 2:30 PM CDT Addended by: DELMIS BECK on: 04/25/2022 11:58 AM Modules accepted: Orders documented in this encounter Plan of Treatment Scheduled Orders Name Type Priority Associated Diagnoses Order S chedule Monoclonal Protein Lab Routine Multiple Myeloma Not E xpected: 04/23/2022, Study, 24 Hour, Urine Having Achieved Rem ission Expires: 07/24/2023 (HCC) Leukemia Lymphocytic Chronic Not Having Achieved Remissi on (HCC) Tumor Cecum Villous Scheduled Referrals Name Type Priority Associated Order Schedule Diagnoses Hematology office Outpatient Referral Routine Exp ected: visit (clinic) 04/23/2022 (Approximate), Expires: 07/24/2023 documented as of this encounter Results (ABNORMAL) Reticulocyte Profile (04/23/2022 4:35 PM CDT) [facility] Method Time Signature Reticulocytes, B 1.81 [...] 04/23/20 4:57 Venous) CDT PM CDT Delmis Beck M.D., Ph.D. LAB BLOOD ADD-ON Performing Organization Address [facility] Code Phon e Number [facility] - [address] [place], [place] [address] [facility] [place] [address] Direct Antiglobulin Test (Poly) (04/23/2022 4:35 PM CDT) [facility] Method Time Signature Direct See Addl Negative 04/23/2022 ETRM Antiglobulin Testing 8:23 PM CDT Test, Polyspecific Specimen Anatomical Collection Method Collection Time Receive d Time (Source) Location / / Volume Laterality Blood (Blood, 04/23/2022 4:35 PM 04/23/20 5:02 Venous) CDT PM CDT Delmis Beck M.D., Ph.D. LAB BLOOD BANK TEST ORDERABL ES Performing Organization Address [facility] Phon e Number [facility] - [address] [place], [place] [address] [facility] [place] [address] (ABNORMAL) Immunoglobulins (IgG, IgA, and IgM) (04/23/2022 4:35 PM CDT) [facility] Method Time Signature Immunoglobulin A 32 [...] 04/24/20 7:04 Venous) CDT AM CDT Delmis Beck M.D., Ph.D. LAB BLOOD ADD-ON Performing Organization Address City/State/ZIP Code Phon e Number [facility] [address] [place], [place] [address] [facility] [place] [address] Laboratory Medicine and Pathology [address] [place] Uric Acid (04/23/2022 4:35 PM CDT) athologist Signature Uric Acid, S 5.9 2.7 - 6.1 04/23/2022 DTL mg/dL 5:39 PM CDT Specimen Anatomical Collection Method Collection Time Receive d Time (Source) Location / / Volume Laterality Blood (Blood, 04/23/2022 4:35 PM 04/23/20 5:21 Venous) CDT PM CDT Delmis Beck M.D., Ph.D. LAB BLOOD ADD-ON Performing Organization Address City/[facility]/ZIP Code Phon e Number [facility] - [address] [place], [place] [address] [facility] [place] [address] [facility] [address] Sodium (04/23/2022 4:35 PM CDT) athologist Signature Sodium, S 138 135 - 145 04/23/2022 5:39 DTL mmol/L PM CDT Specimen Anatomical Collection Method Collection Time Receive d Time (Source) Location / / Volume Laterality Blood (Blood, 04/23/2022 4:35 PM 04/23/20 5:21 Venous) CDT PM CDT Delmis Beck M.D., Ph.D. LAB BLOOD ADD-ON Performing Organization Address City/State/ZIP Code Phon e Number [facility] - [address] [place], [place] [address] [facility] [place] [address] [facility] [address] Potassium (04/23/2022 4:35 PM CDT) athologist Signature Potassium, S 4.5 3.6 - 5.2 04/23/2022 DTL mmol/L 5:39 PM CDT Specimen Anatomical Collection Method Collection Time Receive d Time (Source) Location / / Volume Laterality Blood (Blood, 04/23/2022 4:35 PM 04/23/20 22 5:21 Venous) CDT PM CDT Delmis Beck M.D., Ph.D. LAB BLOOD ADD-ON Performing Organization Address City/[facility] Phon e Number [facility] - [address] [place], [place] [address] [facility] [place] [address] Plasma Cell Assessment (04/23/2022 4:35 PM [...] reagent. Its performance characteristics were determined by [facility] in a manner consistent with CLIA requirements. This test has not bee n cleared or approved by the U.S. Food and Drug Administration. Specimen Anatomical Collection Method Collection Time Receive d Time (Source) Location / / Volume Laterality Blood (Blood, 04/23/2022 4:35 PM 04/23/20 5:20 Venous) CDT PM CDT Narrative This result has an attachment that is no t available. Delmis Beck M.D., Ph.D. LAB BLOOD NON ADD-ON Performing Organization Address City/[facility] Code Phon e Number [facility] - [address] [place], [place] [address] [place], [place] [id number] [place] [address] (ABNORMAL) Phosphorus Inorganic (04/23/2022 4:35 PM CDT) P athologist Signature Phosphorus 4.9 (H) 2.5 - 4.5 04/23/2022 DTL (Inorganic), S mg/dL 5:39 PM CDT Specimen Anatomical Collection Method Collection Time Receive d Time (Source) Location / / Volume Laterality Blood (Blood, 04/23/2022 4:35 PM 04/23/20 5:21 Venous) CDT PM CDT Delmis Beck M.D., Ph.D. LAB BLOOD ADD-ON Performing Organization Address City/State/ZIP Code Phon e Number [facility] - [address] [place] [address] [facility] [place] [address] [facility] [address] [facility] (ABNORMAL) Monoclonal Gammopathy Diagnostic (04/23/2022 4:35 PM CDT) Component Value Ref Range Test Analysis Performed Pathologis t Method Time At Signature Therapeutic No 04/24/2022 SDSC Antibody 6:42 AM CDT Administered? Total Protein, 8.0 (H) 6.3 - 7.9 04/24/2022 [facility] S g/dL 7:52 AM CDT Interior Free 1.16 0.3300 - 04/24/2022 [facility] Light Chain, S 1.94 mg/dL 12:25 PM CDT Lambda Free 17.7 (H) 0.5700 - 04/24/2022 [facility] Light Chain, S 2.63 mg/dL 12:40 PM CDT Interior/Lambda 0.0655 (L) 0.2600 - 04/24/2022 [facility] FLC [...] and its performa nce characteristics determined by [facility] in a manner consistent with CLIA requirements. This test has not been cleared or approved by the U.S. Savi d and Drug Administration. Specimen Anatomical Collection Method Collection Time Receive d Time (Source) Location / / Volume Laterality Blood (Blood, 04/23/2022 4:35 PM 04/24/20 6:40 Venous) CDT AM CDT Narrative [facility] JENNIFER R - 04/25/2022 9:08 AM CDT Specimen Information: Specimen ID: [id number] Specimen Type: Blood Specimen Collection Start Date: 04/23/20 ??4:35 PM Specimen Received Date: 04/24/2022 ??6:4 0 AM Specimen ID: [id number] Specimen Type: Blood Specimen Collection Start Date: 04/23/20 ??4:35 PM Specimen Received Date: 04/24/2022 ??6:4 2 AM Delmis Beck M.D., Ph.D. LAB BLOOD ADD-ON Performing Organization Address City/State/ZIP Code Phon e Number [facility] [address] RADHA [address] [place] [address] Laboratory Medicine and Pathology [address] RADHA MCCOY (Lactate Dehydrogenase) (04/23/2022 4:35 PM CDT) Analysis Performed At Patho logist Time Signature Lactate 215 122 - 222 04/23/2022 DTL Dehydrogenase U/L 5:39 PM CDT (LD), S Specimen Anatomical Collection Method Collection Time Receive d Time (Source) Location / / Volume Laterality Blood (Blood, 04/23/2022 4:35 PM 04/23/20 5:21 Venous) CDT PM CDT Delmis Beck M.D., Ph.D. LAB BLOOD NON ADD-ON Performing Organization Address [facility] Phon e Number [facility] - 200 [place], [place] [address] [facility] [place] [address] Glucose, Fasting (04/23/2022 4:35 PM CDT) P athologist Signature Glucose, P 92 70 - 100 04/23/2022 DTL mg/dL 5:35 PM CDT Last Intake 22 hr 04/23/2022 DTL 5:18 PM CDT Specimen Anatomical Collection Method Collection Time Receive d Time (Source) Location / / Volume Laterality Blood (Blood, 04/23/2022 4:35 PM 04/23/20 5:18 Venous) CDT PM CDT Delmis Beck M.D., Ph.D. LAB BLOOD NON ADD-ON Performing Organization Address City/[facility] Code Phon e Number [facility] - [address] [place], [place] [address] [facility] [place] [address] (ABNORMAL) Creatinine with Estimated GFR (04/23/2022 4:35 PM CDT) Analysis Performed At Patho logist Time Signature Creatinine 1.22 (H) 0.59 - 04/23/2022 DTL 1.04 mg/dL 5:39 PM CDT eGFR-Non 45 (L) >=60 04/23/2022 DTL Black/ mL/min/BSA 5:39 PM CDT Pakistani Comment: ----ADDITIONAL INFORMATION---- Estimated GFR calculated using the 2009 CKD_EPI creatinine equation. eGFR-Black/ 52 (L) >=60 mL/min/BSA 2021 5:39 PM CDT DTL Comment: ----ADDITIONAL INFORMATION---- Estimated GFR calculated using the 2009 CKD_EPI creatinine equation. Specimen Anatomical Collection Method Collection Time Receive d Time (Source) Location / / Volume Laterality Blood (Blood, 04/23/2022 4:35 PM 04/23/20 5:21 Venous) CDT PM CDT Delmis Beck M.D., Ph.D. LAB BLOOD ADD-ON Performing Organization Address City/[facility] Phon e Number [facility] - [address] [place], [place] [address] [facility] [place] [address] Laboratories-[address] CRP (C-Reactive Protein) (04/23/2022 4:35 PM CDT) P athologist Signature C-Reactive 7.4 <=8.0 mg/L 04/23/2022 DTL Protein (CRP), 5:39 PM CDT S Specimen Anatomical Collection Method Collection Time Receive d Time (Source) Location / / Volume Laterality Blood (Blood, 04/23/2022 4:35 PM 04/23/20 5:21 Venous) CDT PM CDT Delmis Beck M.D., Ph.D. LAB BLOOD ADD-ON Performing Organization Address City/[facility] Phon e Number [facility] - [address] [place] [address] [facility] [place] [address] Laboratories-[address] (ABNORMAL) CBC no call back, reflex [...] 04/23/20 4:57 Venous) CDT PM CDT Delmis Beck M.D., Ph.D. LAB BLOOD NON ADD-ON Performing Organization Address City/[facility] Phon e Number [facility] - [address] Calcium, Total (04/23/2022 4:35 PM CDT) [facility] Calcium, Total, 10.1 8.8 - 10.2 04/23/2022 DT S mg/dL 5:39 PM CDT Specimen Anatomical Collection Method Collection Time Receive d Time (Source) Location / / Volume Laterality Blood (Blood, 04/23/2022 4:35 PM 04/23/20 5:21 Venous) CDT PM CDT Dlemis Beck M.D., Ph.D. LAB BLOOD ADD-ON Performing Organization Address City/[facility] Phon e Number [facility] - [address] (ABNORMAL) BUN (Blood Urea Nitrogen) (04/23/2022 4:35 PM CDT) athologist Signature BUN (Blood Urea 27 (H) 6 - 21 04/23/2022 DTL Nitrogen), S mg/dL 5:39 PM CDT Specimen Anatomical Collection Method Collection Time Receive d Time (Source) Location / / Volume Laterality Blood (Blood, 04/23/2022 4:35 PM 04/23/20 5:21 Venous) CDT PM CDT Delmis Beck M.D., Ph.D. LAB BLOOD ADD-ON Performing Organization Address City/State/ZIP Code Phon e Number [facility] - [address] [place], [place] [address] [facility] [address] Bilirubin, Total (04/23/2022 4:35 PM CDT) athologist Signature Bilirubin, 0.4 <=1.2 mg/dL 04/23/2022 DTL Total, S 5:39 PM CDT Specimen Anatomical Collection Method Collection Time Receive d Time (Source) Location / / Volume Laterality Blood (Blood, 04/23/2022 4:35 PM 04/23/20 5:21 Venous) CDT PM CDT Delmis Beck M.D., Ph.D. LAB BLOOD ADD-ON Performing Organization Address City/[facility]/ZIP Code Phon e Number [facility] - [address] [place], [place] [address] [place] [address] Bilirubin, Direct (04/23/2022 4:35 PM CDT) P athologist Signature Bilirubin, <0.2 0.0 - 0.3 04/23/2022 DT Direct, S mg/dL 5:39 PM CDT Specimen Anatomical Collection Method Collection Time Receive d Time (Source) Location / / Volume Laterality Blood (Blood, 04/23/2022 4:35 PM 04/23/20 5:21 Venous) CDT PM CDT Delmis Beck M.D., Ph.D. LAB BLOOD ADD-ON Performing Organization Address City/State/ZIP Code Phon e Number [facility] - [address] [place], [place] [address] [facility] [place] [address] [facility] [address] Bicarbonate (04/23/2022 4:35 PM CDT) athologist Signature Bicarbonate, S 24 22 - 29 04/23/2022 DTL mmol/L 5:39 PM CDT Specimen Anatomical Collection Method Collection Time Receive d Time (Source) Location / / Volume Laterality Blood (Blood, 04/23/2022 4:35 PM 04/23/20 5:21 Venous) CDT PM CDT Delmis Beck M.D., Ph.D. LAB BLOOD ADD-ON Performing Organization Address City/[facility]/ZIP Code Phon e Number [facility] - [address] [place], [place] [address] [facility] [address] [facility] [address] (ABNORMAL) Ldoj-5-Jpeecydluyfyc (Beta-2-M) (04/23/2022 4:35 PM CDT) athologist Signature Nckn-8-Niyfuwz 5.70 (H) 1.21 - 04/24/2022 [facility] obulin, S 2.70 8:31 AM CDT mcg/mL Specimen Anatomical Collection Method Collection Time Receive d Time (Source) Location / / Volume Laterality Blood (Blood, 04/23/2022 4:35 PM 04/24/20 7:04 Venous) CDT AM CDT Delmis eBck M.D., Ph.D. LAB BLOOD ADD-ON Performing Organization Address City/[facility]/ZIP Code Phon e Number [facility] [address] [place], [place] [address] [facility] [place] [address] Laboratory Medicine and Pathology [address] [place] AST (Aspartate Aminotransferase) (04/23/2022 4:35 PM CDT) [facility] gist Method Time Signature Aspartate 26 8 - 43 04/23/2022 DTL Aminotransferase U/L 5:39 PM CDT (AST), S Specimen Anatomical Collection Method Collection Time Receive d Time (Source) Location / / Volume Laterality Blood (Blood, 04/23/2022 4:35 PM 04/23/20 5:21 Venous) CDT PM CDT Delmis Beck M.D., Ph.D. LAB BLOOD ADD-ON Performing Organization Address City/[facility]/ZIP Code Phon e Number [facility] - [address] [place] [address] [place] [address] Alkaline Phosphatase (04/23/2022 4:35 PM CDT) athologist Signature Alkaline 67 35 - 104 04/23/2022 DT Phosphatase, S U/L 5:39 PM CDT Specimen Anatomical Collection Method Collection Time Receive d Time (Source) Location / / Volume Laterality Blood (Blood, 04/23/2022 4:35 PM 04/23/20 5:21 Venous) CDT PM CDT Delmis Beck M.D., Ph.D. LAB BLOOD ADD-ON Performing Organization Address City/[facility] Phon e Number [facility] - [id number] [place] [address] (ABNORMAL) 25-Hydroxyvitamin D2 and D3 (04/23/2022 4:35 PM CDT) athologist Signature 25-Hydroxy D2 <4.0 ng/mL 04/24/2022 [facility] 10:10 PM CDT 25-Hydroxy D3 88 ng/mL 04/24/2022 [facility] 10:10 PM CDT 25-Hydroxy D 88 (H) ng/mL 04/24/2022 [facility] Total 10:10 PM CDT Comment: Interpretation: >80 ng/mL (toxicity poss ible) ----REFERENCE VALUE---- 25-HYDROXY D TOTAL (D2+D3) Optimum level s in the healthy population are 20-50, patients with bone disease may benefit from higher levels within this r karla. ----ADDITIONAL INFORMATION---- This test was developed and its performa nce characteristics determined by [facility] in a manner consistent with CLIA requirements. This test has not been cleared or approved by the U.S. Savi d and Drug Administration. Specimen Anatomical Collection Method Collection Time Receive d Time (Source) Location / / Volume Laterality Blood (Blood, 04/23/2022 4:35 PM 04/24/20 7:42 Venous) CDT AM CDT Delmis Beck M.D., Ph.D. LAB BLOOD ADD-ON Performing Organization Address City/State/ZIP Code Phon e Number [facility] [address] [place], [place] [address] [facility] [place] [address] Laboratory Medicine and Pathology [address] GARCIA Interpretation of Outside NM PET Scan (04/23/2022 [...] likel y represents the biopsy-proven malignancy. Delmis Beck M.D., Ph.D. 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
--- OUTSIDE RECORDS SUMMARY | 2022-05-22 06:13 | XMS_ITS | Encounter Summary ---
:1950 Author Organization [facility] Address [address] [place] [address] Care Team Providers Name Role Phone Unavailable Primary Care Provider Unavailable Encounter Details Date Type Department Care Team Description 08/16/2014 Hospital Encounter HX [facility] Willie Her M.D. [address] [place], [place] [phone] (Wo rk) Social History Tobacco Use Types Packs/Day Years Used Date Smoking Tobacco: Never Assessed Sex Assigned at Date Recorded Not on file documented as of this encounter Last Filed Vital Signs Vital Sign Reading Time Taken Comments Blood Pressure 142/63 08/16/2014 1:55 PM ACUTE CARE PHYSICIAN Pulse 89 08/16/2014 10:58 AM ACUTE CARE PHYSICIAN Temperature - - Respiratory Rate 20 08/16/2014 1:55 PM ACUTE CARE PHYSICIAN Oxygen Saturation - - Inhaled Oxygen Concentration - - Weight 83.6 kg (184 lb 4.9 oz) 08/16/2014 10:58 AM ACUTE CARE PHYSICIAN Height 167 cm (5' 5.75) 08/16/2014 1:55 PM ACUTE CARE PHYSICIAN Body Mass Index 29.98 08/16/2014 10:58 AM ACUTE CARE PHYSICIAN documented in this encounter Discharge Summaries Reynold Padilla, RPopeyeN. - 08/16/2014 3:12 PM CST ED Depart Summary [facility] Emergency Department Clinical Discharge Summary PERSON INFORMATION Name MICAELA SMILEY Age 64 Years 1950 12:00 PM Sex Female Language Estonian PCP PCP, ELSEWHERE Marital Status Visit Id Visit Reason Fall; FALL Specialty Enc Type Emergency Med Service Emergency Medicine Referred by Track Group MAQN ED Discharge 08/16/2014 3:00 PM Tracking Id [id number] Checkout 08/16/2014 3:00 PM Checkin 08/16/2014 10:49 AM Acuity 3 -Urgent Dispo Type Admitted as Inpatient to this Hospital Arrival 08/16/2014 10:49 AM Reg Status MELE 000 04:11 Address: [address] [place] [phone] Comment: PROVIDER INFORMATION Provider Role Provider Contact Time REYNOLD PADILLA VIOLIN REPAIRER Nurse 08/16/14 11:40 WILLIE HER MD ED Provider 08/16/14 11:55 DIAGNOSIS Comment: PATIENT EDUCATION INFORMATION Instructions: Follow up: Source: [facility] POWERCHART Document Id: [id number] E CARE PHYSICIAN Reynold Padilla R.N. - 08/16/2014 3:12 PM CST ED Discharge Instructions [address] [address] Name: MICAELA SMILEY Date of : 1950 12:00 PM Visit Date: 08/16/2014 10:49 AM [facility] Number: [id number] Address: [address] [place] [phone] Primary Care Provider: PCP, ELSEWHERE IMPORTANT: [facility] [place] would like to thank you for allowing us to assistyou with your healthcare needs. The following includes patient education materials and information regarding your injury/illness. Diagnosis: Follow-Up Instructions: Your Upcoming Appointments: Date Time Location Provider No Appointments found Patient Education Materials: ED Tests and Procedures: Order Status Automated Diff-5 Part Canceled Culture Urine Ordered Influenza A/B Antigen Completed Basic Metabolic Panel Completed CBC (includes Auto Differential) Completed Urinalysis with Culture if Indicated Completed Lactic Acid Completed Culture Blood x 2 Ordered Culture Blood Ordered Culture Blood Ordered XR Abdomen 2 Views Completed Manual Differential Completed XR Chest 2 Views Completed Discharge Prescriptions & Home Medications: Medication/Strength Dose Route Frequency Indications/Special Instructions/Comments/Notes atorvastatin (Lipitor 40 mg oral tablet) 40 mg Oral once a day (at bedtime) nizatidine (nizatidine 150 mg oral capsule) 150 mg Oral two times a day as needed for Anaphylaxis potassium chloride (K-Dur 20 mEq oral tablet, extended release) 20 meq Oral two times a day sertraline (Zoloft 100 mg oral tablet) 100 mg Oral once a day triamterene-hydrochlorothiazide (triamterene-hydrochlorothiazide 37.5 mg-25 mg oral capsule) 1 cap(s) Oral once a day Attention: If you have any medications at home not on this list, DO NOT take them until you contact your provider for clarification. Give a copy of your medication list to your primary care provider. Update your medication list any time medications or doses are changed and carry your medication list at all times in case of emergency. Medication Reconciliation: Reconciliation is a process of identifying the most accurate list of all medications a patient is taking - including name, dosage, frequency, and route - and using this list to provide to the patient information about how to take those medications. MICAELA SMILEY or jimmy has reviewed the home medications you have listed with us. Review the following instructions: You have NOT received any prescriptions and you have told us you are not currently taking any home medications You have NOT received any prescriptions. You have been provided a discharge medications list and you may CONTINUE taking your medications as previously prescribed by your regular providers. You have received the listed prescriptions and BEGIN all listed prescriptions as directed. Since you have listed no home medications, please check with your family doctor if you are taking any other medications. You have received the listed prescriptions and BEGIN all listed prescriptions as directed. Youhave been provided a discharge medications list and you may CONTINUE all home medications as previously prescribed by your regular providers. You have received the listed prescriptions and BEGIN all listed prescriptions as directed. Youhave been provided a discharge medications list. The following CHANGES have been made to your medication list; Otherwise, CONTINUE all home medications as previously prescribed by your regular provider. IMPORTANT: We examined and treated you today on an emergency basis only. This was not a substitute for, or an effort to provide, complete medical care. In most cases, you must let your doctor check youagain. Tell your doctor about any new or lasting problems. We cannot recognize and treat all injuries or illnesses in one Emergency Department visit. If you had special tests, such as EKG's or X- rays, we will review them again within 24 hours. We will call you if there are any new suggestions. Please follow the instructions above carefully. If you are being transferred to another facility, your follow up plan of care will be determined by the receiving facility. If you are a patient that is being discharged from the Emergency Department after receiving narcotics or other medications that may impair your judgment you may be a risk to yourself or others if you operate a motor vehicle. We recommend that you arrange a ride home with a responsible democrat. I, MICAELA SMILEY , or responsible democrat have received this information and my questions have beenanswered. I have discussed any challenges I see with this plan with the nurse or physician. Patient Signature or Responsible Democrat/Relationship Date Time Provider Signature Date Time Medication Reconciliation: Reconciliation is a process of identifying the most accurate list of all medications a patient is taking - including name, dosage, frequency, and route - and using this list to provide to the patient information about how to take those medications. MICAELA SMILEY or designee has reviewed the home medications you have listed with us. Review the following instructions: You have NOT received any prescriptions and you have told us you are not currently taking any home medications You have NOT received any prescriptions. You have been provided a discharge medications list and you may CONTINUE taking your medications as previously prescribed by your regular providers. You have received the listed prescriptions and BEGIN all listed prescriptions as directed. Since you have listed no home medications, please check with your family doctor if you are taking any other medications. You have received the listed prescriptions and BEGIN all listed prescriptions as directed. Youhave been provided a discharge medications list and you may CONTINUE all home medications as previously prescribed by your regular providers. You have received the listed prescriptions and BEGIN all listed prescriptions as directed. Youhave been provided a discharge medications list. The following CHANGES have been made to your medication list; Otherwise, CONTINUE all home medications as previously prescribed by your regular provider. IMPORTANT: We examined and treated you today on an emergency basis only. This was not a substitute for, or an effort to provide, complete medical care. In most cases, you must let your doctor check youagain. Tell your doctor about any new or lasting problems. We cannot recognize and treat all injuries or illnesses in one Emergency Department visit. If you had special tests, such as EKG's or X- rays, we will review them again within 24 hours. We will call you if there are any new suggestions. Please follow the instructions above carefully. If you are being transferred to another facility, your follow up plan of care will be determined by the receiving facility. If you are a patient that is being discharged from the Emergency Department after receiving narcotics or other medications that may impair your judgment you may be a risk to yourself or others if you operate a motor vehicle. We recommend that you arrange a ride home with a responsible democrat. Sundeep, MICAELA SMILEY , or responsible democrat have received this information and my questions have beenanswered. I have discussed any challenges I see with this plan with the nurse or physician. Patient Signature or Responsible Democrat/Relationship Date Time Provider Signature Date Time [facility] Document Id: [id number] E CARE PHYSICIAN documented in this encounter Nursing Notes Reynold Padilla R.N. - 08/16/2014 11:13 AM CST Orthostatics Orthostatics Entered On: 08/16/2014 11:46 ACUTE CARE PHYSICIAN Performed On: 08/16/2014 11:13 ACUTE CARE PHYSICIAN by REYNOLD PADILLA RN Orthostatics Systolic Blood Pressure Standing : 113 mmHg Diastolic Blood Pressure Standing : 81 mmHg Pulse Standing : 104 /min Patient Response Standing : Other: pt became unsteady REYNOLD PADILLA RN - 08/16/2014 11:45 ACUTE CARE PHYSICIAN Source: [facility] [employer] Document Id: [id number] ACUTE CARE PHYSICIAN!6 E CARE PHYSICIAN documented in this encounter ED Notes Reynold Padilla R.N. - 08/16/2014 3:00 PM CST ED Disposition Summary ED Disposition Summary Entered On: 08/16/2014 15:09 ACUTE CARE PHYSICIAN Performed On: 08/16/2014 15:00 ACUTE CARE PHYSICIAN by REYNOLD PADILLA RN ED Disposition Summary Accompanied By : Alone Mode of Discharge : Stretcher Transportation : Other: cart Printed Discharge Instructions Given to Patient : No Reason Discharge Instructions Not Given : admitted to inpatient Patient Status at Discharge from ED : Improved REYNOLD PADILLA RN - 08/16/2014 15:09 ACUTE CARE PHYSICIAN Source: [facility] [employer] Document Id: [id number] ACUTE CARE PHYSICIAN!8 E CARE PHYSICIAN Reynold Padilla R.N. - 08/16/2014 2:50 PM CST ED Treatments and Procedures ED Treatments and Procedures Entered On: 08/16/2014 15:09 ACUTE CARE PHYSICIAN Performed On: 08/16/2014 14:50 ACUTE CARE PHYSICIAN by REYNOLD PADILLA RN Cardiac Monitoring Monitoring Lead Christmas Tree Farm Manager : Discontinued Cardiac Rhythm Tech : Sinus rhythm REYNOLD PADILLA RN - 08/16/2014 15:09 ACUTE CARE PHYSICIAN Source: [facility] [employer] Document Id: [id number] ACUTE CARE PHYSICIAN!4 E CARE PHYSICIAN Reynold Padilla R.N. - 08/16/2014 1:56 PM CST ED Nurse Reassess ED Nurse Reassess Entered On: 08/16/2014 13:59 ACUTE CARE PHYSICIAN Performed On: 08/16/2014 13:56 ACUTE CARE PHYSICIAN by REYNOLD PADILLA RN Pain Assessment Pain Symptoms : Yes REYNOLD PADILLA RN - 08/16/2014 13:56 ACUTE CARE PHYSICIAN Comfort Measures Comfort Measures Response : Comfort level increased REYNOLD PADILLA RN - 08/16/2014 13:56 ACUTE CARE PHYSICIAN Resp Reassess Airway : Patent Respirations : Unlabored Cough : Non-Productive, Spontaneous REYNOLD PADILLA RN - 08/16/2014 13:56 ACUTE CARE PHYSICIAN Breath Sounds Assessment Grid BUL : congested BLL : Diminished, Clear REYNOLD PADILLA RN - 08/16/2014 13:56 ACUTE CARE PHYSICIAN Source: [employer] Document Id: [id number] ACUTE CARE PHYSICIAN!12 E CARE PHYSICIAN Vimal Burk R.N. - 08/16/2014 1:44 PM CST ED Nurse Reassess ED Nurse Reassess Entered On: 08/16/2014 13:45 ACUTE CARE PHYSICIAN Performed On: 08/16/2014 13:44 ACUTE CARE PHYSICIAN by VIMAL BURK RN Pain Assessment Pain Symptoms : Yes VIMAL BURK RN - 08/16/2014 13:44 ACUTE CARE PHYSICIAN Comfort Measures Comfort Measures Grid Comfortable Environment : Yes Rest : Yes VIMAL BURK RN - 08/16/2014 13:44 ACUTE CARE PHYSICIAN Patient Response : MD to place teagan, discussed labs and possible need for admit, plan CXR, pt resting, coarse sounding cough VIMAL BURK RN - 08/16/2014 13:44 ACUTE CARE PHYSICIAN Source: [employer] Document Id: [id number] ACUTE CARE PHYSICIAN!8 E CARE PHYSICIAN Vimal Burk R.N. - 08/16/2014 1:43 PM CST ED Treatments and Procedures ED Treatments and Procedures Entered On: 08/16/2014 13:44 ACUTE CARE PHYSICIAN Performed On: 08/16/2014 13:43 ACUTE CARE PHYSICIAN by VIMAL BURK RN Incision/Wound Incision/Wound Care Grid Activity : Assessed, Dressing applied Type : Laceration Location : Upper arm Laterality : Right, Lateral, Posterior Surrounding Tissue : Healthy Cleansing/ Irrigation : Cleansed, Wound cleanser Wound Dressing : Other: teagan per MD/dia/damián to area Neurovascular Status : Skin distal to injury warm and pink VIMAL BURK RN - 08/16/2014 13:43 ACUTE CARE PHYSICIAN Source: [employer] Document Id: [id number] ACUTE CARE PHYSICIAN!12 E CARE PHYSICIAN Reynold Padilla RBereket - 08/16/2014 12:33 PM CST ED Nurse Reassess ED Nurse Reassess Entered On: 08/16/2014 12:33 ACUTE CARE PHYSICIAN Performed On: 08/16/2014 12:33 ACUTE CARE PHYSICIAN by REYNOLD PADILLA RN Pain Assessment Pain Symptoms : Yes REYNOLD PADILLA RN - 08/16/2014 12:33 ACUTE CARE PHYSICIAN Comfort Measures Comfort Measures Response : Comfort level increased REYNOLD PADILLA RN - 08/16/2014 12:33 ACUTE CARE PHYSICIAN [facility] Document Id: [id number] ACUTE CARE PHYSICIAN!5 E CARE PHYSICIAN Willie Her M.D. - 08/16/2014 11:55 AM CST Fall Patient: MICAELA SMILEY Age: 64 years Sex: Female : 1950 Author: WILLIE HER MD Attachments: None Basic Information Additional information: Chief Complaint from Nursing Triage Note : Chief Complaint Description 08/16/2014 10:58 ACUTE CARE PHYSICIAN Chief Complaint Description Pt presents today with a injury to the right underarm from a fall. Pt has had the flu since Saturday08/13/2014, nausea, vomiting, diarrhea, fever. Pt wasin the shower today, fell, cutting her under arm on the shower lever. Pt had fever this AM 101.0 . History of Present Illness 64 year old female presents to the ER for evaluation of fall this morning in the shower and nausea, vomiting, fever and diarrhea for the last 3 days. Pt has a history of microscopic colitis. She reports for the last 3 days she has had persistent nausea and vomiting to where she is vomiting bile, diarrhea 4-5 times daily now just watery green in nature and this morning she went to take a shower, became lightheaded and fall. NO LOC and no head trauma though did sustain a laceration to her right axilla. She is here for evaluation. The patient presents following fall. The onset was 45 minutes ago. The occurrence was single episode. The fall was described as became lightheaded in shower though did NOT experience syncopal episode but was definitely pre- syncopal which caused her to fall.. The location where the incident occurred was at home. Location: laceration to left axilla. The character of symptoms is bleeding and lightheadedness and dizziness. The degree at present is lightheadedness persists with standing. The exacerbatingfactor is standing. The relieving factor is lying down. Risk factors consist of age. Therapy today: n one. Preceding symptoms lightheadedness. Review of Systems Constitutional symptoms: Weakness. Skin symptoms: Negative except as documented in HPI. Eye symptoms: Negative except as documented in HPI. ENMT symptoms: Negative except as documented in HPI. Respiratory symptoms: Negative except as documented in HPI. Cardiovascular symptoms: Negative except as documented in HPI. Gastrointestinal symptoms: Negative except as documented in HPI. Genitourinary symptoms: Negative except as documented in HPI. Musculoskeletal symptoms: Negative except as documented in HPI. Neurologic symptoms: Negative except as documented in HPI. Additional review of systems information: All other systems reviewed and otherwise negative. Health Status Allergies: Allergic Reactions (Selected) NKA. Past Medical/ Family/ Social History Medical history: microscopic colitis Stage 3 renal insufficiency. Surgical history: No active procedure history items have been selected or recorded.. Family history: No family history items have been selected or recorded.. Physical Examination Vital Signs: Vital Signs 08/16/2014 10:58 ACUTE CARE PHYSICIAN Temperature Core 37.4 DegC Peripheral Pulse Rate 89 /min Respiratory Rate 18 /min SpO2 95 % Systolic Blood Pressure 134 mmHg Diastolic Blood Pressure 78 mmHg Mean Arterial Pressure 97 mmHg BP Location Left upper , Measurements 08/16/2014 10:58 ACUTE CARE PHYSICIAN Height 167 cm Height Source Stated Dosing Weight 83.60 kg Actual Weight 83.6 kg Weight Source Standing scale Body Mass Index 29.98 kg/m2 , SpO2 08/16/2014 10:58 ACUTE CARE PHYSICIAN SpO2 95 % . General: Alert and mild distress. Bambi coma scale: Total score: Total score: 15. Neurological: Alert and oriented to person, place, time, and situation, No focal neurological deficit observed, CN II-XII intact, normal sensory observed, normal motor observed, normal speech observed and normal coordination observed. Skin: Warm, dry and 8.4 cm laceration right axilla through to subcutaneous fat. Head: Normocephalic and atraumatic. Neck: Supple. Eye: Pupils are equal, round and reactive to light and vision grossly normal. Ears, nose, mouth and throat: Mouth: Dry mucous membranes. Cardiovascular: Regular rate and rhythm. Respiratory: Lungs are clear to auscultation. Gastrointestinal: Soft, Nontender, Non distended and Normal bowel sounds. Psychiatric: Cooperative. Medical Decision Making OrdersLaunch Orders Laboratory: Culture Blood x 2 (Order Processing) Culture Blood (Order Processing): Stat, 08/16/2014 11:56 ACUTE CARE PHYSICIAN Culture Blood (Order Processing): Stat, 08/16/2014 11:56 ACUTE CARE PHYSICIAN Lactic Acid (Order Processing): Stat, 08/16/2014 11:56 ACUTE CARE PHYSICIAN, Once Urinalysis with Culture if Indicated (Order Processing): Stat, 08/16/2014 11:56 ACUTE CARE PHYSICIAN, Once, Clean Void Urine CBC (includes Auto Differential) (Order Processing): Stat, 08/16/2014 11:56 ACUTE CARE PHYSICIAN, Once Basic Metabolic Panel (Order Processing): Stat, 08/16/2014 11:56 ACUTE CARE PHYSICIAN, Once Pharmacy: Zofran (Order Processing): 4 mg, IV Push, Once Saline bolus (Order Processing): 500 mL, IVPB, Once Radiology: XR Abdomen 2 Views (Order Processing): 08/16/2014 11:56 ACUTE CARE PHYSICIAN, pain, Stat, Patient Bed, Once, 08/16/2014 11:56 ACUTE CARE PHYSICIAN, MAQN ED, Launch Orders Pharmacy: Tamiflu (Order Processing): 75 mg, PO, Once. Results review:Lab results : Lab View 08/16/2014 12:15 ACUTE CARE PHYSICIAN Hgb 12.9 g/dL Hct 40.6 % WBC 18.8 x10(9)/L HI RBC 4.40 x10(12)/L MCV 92.3 fL RDW 14.3 % Platelet 229 x10(9)/L Platelet Estimate Adequate Neutro Manual 46.0 % LOW Lymph Manual 50.0 % HI Starr Manual 4.0 % Eos Manual 0.0 % Baso Manual 0.0 % Smudge Cells Present Differential? Manual Manual Diff ANC 8.65 x10(9)/L HI Sodium Lvl 142 mmol/L Potassium Lvl 2.6 mmol/L LOW Chloride 98 mmol/L CO2 25 mmol/L AGAP 20 mmol/L HI Glucose Lvl 127 mg/dL Creatinine 1.5 mg/dL HI EGFR (MDRD) 36.2 mL/min/SA LOW EGFR (MDRD) 43.8 mL/min/SA LOW BUN 18 mg/dL Calcium Lvl 9.2 mg/dL Lactic Acid Lvl 1.2 mmol/L , Lab results : Lab View 08/16/2014 14:15 ACUTE CARE PHYSICIAN Influenza A and B AG POS . Radiology results:* Final Report * Reason For Exam pain Report EXAM: XR Abdomen 2 Views INDICATION: pain COMPARISON: None. FINDINGS: No free air. Granulomatous calcifications right lung base. Nonspecific bowel gas pattern. No evidence for bowel obstruction. Degenerative changes lower lumbar spine. IMPRESSION: No localizing features are identified Signature Line Final Dictated: 08/16/2014 12:32 pm SHEEBA MORE DO Signed (Electronic Signature): 08/16/2014 12:34 pm Transcribed by: ELIZABETH Technologist: JOB ABBOTT , * Final Report * Reason For Exam cough Report EXAM: XR Chest 2 Views INDICATION: cough COMPARISON: None. FINDINGS: The heart is normal in size. There is a calcified granuloma in the right lower lung field. The lungs are otherwise clear. IMPRESSION: No acute cardiopulmonary process noted. Signature Line Final Dictated: 08/16/2014 2:03 pm RADHA DING MD Signed (Electronic Signature): 08/16/2014 2:03 pm Transcribed by: XAVIER Technologist: JOB ABBOTT . Impression and Plan Diagnosis Weakness Dehydration Hypokalemia Right axilla laceration influenza Plan Condition: Stable. Disposition: Patient care transitioned to: Time: 08/16/2014 14:20:00, AP MURRY MD. Counseled: Patient, Regarding diagnosis, Regarding diagnostic results, Regarding treatment plan. Orders: Launch Orders Patient Care: Admit to Hospital-ED (Order Processing): 08/16/2014 14:11 ACUTE CARE PHYSICIAN. Notes: I have discussed with Dr. Murry the pt is unable to provide a urine specimen in the ER and will need to provide it upon arrival to floor. PT will require repiratory isolation given influenza status. Electronically Signed By: WILLIE HER MD On: 08/16/2014 03:03 PM Modified by and Electronically Signed by: WILLIE HER MD On: 08/16/2014 03:03 PM [facility] Document Id: [id number]} E CARE PHYSICIAN Reynold Padilla R.N. - 08/16/2014 11:30 AM CST ED Treatments and Procedures ED Treatments and Procedures Entered On: 08/16/2014 11:44 ACUTE CARE PHYSICIAN Performed On: 08/16/2014 11:30 ACUTE CARE PHYSICIAN by REYNOLD PADILLA RN Cardiac Monitoring Monitoring Lead : II, V1/MCL1 Monitoring Lead Christmas Tree Farm Manager : Initiated Cardiac Rhythm Tech : Sinus rhythm REYNOLD PADILLA RN - 08/16/2014 11:43 ACUTE CARE PHYSICIAN Peripheral IV Peripheral IV Assess/Intervention Grid Peripheral IV #1 IV Activity : Start Number of Attempts : 2 Date of Insertion : 08/16/2014 ACUTE CARE PHYSICIAN IV Site : Antecubital Laterality : Left Catheter Size : 20 Catheter Type : Over the needle Site Condition : No complications REYNOLD PADILLA RN - 08/16/2014 11:43 ACUTE CARE PHYSICIAN Source: [facility] [employer] Document Id: [id number] ACUTE CARE PHYSICIAN!16 E CARE PHYSICIAN Reynold Padilla R.N. - 08/16/2014 10:58 AM CST ED Primary Assessment Document Has Been Updated ED Primary Assessment Entered On: 08/16/2014 11:09 ACUTE CARE PHYSICIAN Performed On: 08/16/2014 10:58 ACUTE CARE PHYSICIAN by REYNOLD PADILLA RN Reason For Visit (As Of: 08/16/2014 11:43:35 ACUTE CARE PHYSICIAN) Diagnoses(Active) Fall Date: 08/16/2014 ; Diagnosis Type: Reason For Visit ; Confirmation: Complaint of ; Clinical Dx:Fall ; Classification: Medical ; Clinical Service: Emergency medicine ; Code: PNED ; Probability: 0 ; Diagnosis Code: [id number] Triage Chief Complaint Description : Pt presents today with a injury to the right underarm from a fall. Pt has had the flu since Saturday08/13/2014, nausea, vomiting, diarrhea, fever. Pt was in the shower today, fell, cutting her under arm on the shower lever. Pt had fever this AM 101.0 (Comment: took 1000mg of tylenol. [REYNOLD PADILLA RN - 08/16/2014 11:40 ACUTE CARE PHYSICIAN] ) REYNOLD PADILLA RN - 08/16/2014 11:40 ACUTE CARE PHYSICIAN Information Given By : Patient, Daughter Accompanied By : Daughter Mode of Arrival ED : Private vehicle Track : Trauma Other Languages : Estonian Vital Signs Assessed : Yes GCS Assessed : Yes Treatments Prior to Arrival : Acetaminophen Is Patient Female and 13-50 no hysterectomy : No REYNOLD PADILLA RN - 08/16/2014 10:58 ACUTE CARE PHYSICIAN Vital Signs Temperature Core : 37.4 DegC(Converted to: 99.3 DegF) Peripheral Pulse Rate : 89 /min Respiratory Rate : 18 /min Systolic Blood Pressure : 134 mmHg Diastolic Blood Pressure : 78 mmHg NIBP Mean : 97 mmHg BP Location : Left upper extremity SpO2 : 95 % Oxygen Saturation Monitoring Frequency : Intermittent Oxygen Therapy : Room air Height : 167 cm(Converted to: 5 ft 6 inch(es)) Actual Weight : 83.6 kg Actual Weight Conversion to Pounds : 183.92 lb Weight Source : Standing scale Height Source : Stated Body Mass Index : 29.98 kg/m2 REYNOLD PADILLA RN - 08/16/2014 10:58 ACUTE CARE PHYSICIAN Bambi Coma Eye Opening Response Bambi : Spontaneously Best Verbal Response [place] : Oriented Best Motor Response [place] : Obeys simple commands Bambi Coma Score : 15 REYNOLD PADILLA RN - 08/16/2014 10:58 ACUTE CARE PHYSICIAN Pain Assessment Pain Symptoms : Yes REYNOLD PADILLA RN - 08/16/2014 10:58 ACUTE CARE PHYSICIAN Pain Pain Assessment Grid Pain 1 Location : Other: under upper arm Laterality : Right Intensity : 6 Time Pattern : Acute Onset : Sudden Quality : Burning Pain Radiation : No Aggravating Factors : Movement Alleviating Factors : Medication, Repositioning, Rest REYNOLD PADILLA RN - 08/16/2014 10:58 ACUTE CARE PHYSICIAN Comfort Measures Comfort Measures Grid [place] Application : Yes Relaxation : Yes Rest : Yes REYNOLD PADILLA RN - 08/16/2014 10:58 ACUTE CARE PHYSICIAN ED Physician Notification Time ED Physician Notification Time : 08/16/2014 11:04 ACUTE CARE PHYSICIAN REYNOLD PADILLA RN - 08/16/2014 10:58 ACUTE CARE PHYSICIAN ELVIA ELVIA Level 1 : No ELVIA Level 2 : No ELVIA Level 3 : Many Vital Signs ELVIA : No REYNOLD PADILLA RN - 08/16/2014 10:58 ACUTE CARE PHYSICIAN DCP GENERIC CODE Tracking Group : MAN ED Tracking Acuity : 3 -Urgent REYNOLD PADILLA - 08/16/2014 10:58 ACUTE CARE PHYSICIAN Allergy (As Of: 08/16/2014 11:09:55 ACUTE CARE PHYSICIAN) Allergies (Active) NKA Estimated Onset Date: Unspecified ; Created By: REYNOLD PADILLA RN; Reaction Status: Active ; Category: Drug ; Substance: NKA ; Type: Allergy ; Updated By: REYNOLD PADILLA RN; Reviewed Date: 08/16/2014 11:04 ACUTE CARE PHYSICIAN ID Screen Drug Resistant Organism : No Travel Within Last 21 Days : No REYNOLD PADILLA RN - 08/16/2014 10:58 ACUTE CARE PHYSICIAN TB Symptoms Grid Bloody Sputum : No Fatigue : No Fever : No Loss of Appetite : No Night Sweats : No Persistent Cough Greater Than 3 Weeks : No Weight Loss : No REYNOLD PADILLA RN - 08/16/2014 10:58 ACUTE CARE PHYSICIAN Immunizations Immunizations Current : Yes Influenza : This year REYNOLD PADILLA RN - 08/16/2014 10:58 ACUTE CARE PHYSICIAN Respiratory Airway : Patent Respirations : Unlabored Respiratory Pattern : Regular Respiratory Detailed Assessment : Yes REYNOLD PADILLA RN - 08/16/2014 10:58 ACUTE CARE PHYSICIAN Resp Detailed Cough : Non-Productive, Spontaneous Sputum Amount : None REYNOLD PADILLA [facility] 08/16/2014 11:40 ACUTE CARE PHYSICIAN REYNOLD PADLILA - 08/16/2014 11:40 ACUTE CARE PHYSICIAN Breath Sounds Assessment Grid BUL : Clear BLL : Clear REYNOLD PADILLA [facility] 08/16/2014 10:58 ACUTE CARE PHYSICIAN Cardiovascular Heart Rhythm : Regular Skin Color : Normal for ethnicity Skin Description : Normal Skin Temperature : Warm Cardiovascular Detailed Assessment : Yes REYNOLD PADILLA - 08/16/2014 10:58 ACUTE CARE PHYSICIAN CV Detailed CV Patient Stated Symptoms : Dizziness Cardiovascular Note : Pt has had dizziness and weakness with standing since saturday. REYNOLD PDAILLA - 08/16/2014 10:58 ACUTE CARE PHYSICIAN Neurological Last Well Time Known : Not applicable Level of Consciousness : Alert Orientation : Oriented x 3 Characteristics of Speech : Clear REYNOLD PADILLA [facility] 08/16/2014 10:58 ACUTE CARE PHYSICIAN ED Psychosocial Affect/Behavior : Calm, Cooperative Domestic Abuse Concerns : None REYNOLD PADILLA [facility] 08/16/2014 10:58 ACUTE CARE PHYSICIAN Gastrointestinal Nutrition ED : Inadequate Nutrition ED Freetext : Pt had an diarrhea and vomiting since saturday. Pt has tired to eat and drink,pt states that she had not been able to keep things down. Pt last emesis was Saturday, and last diarrhea was today. GI Detailed Assessment : Yes REYNOLD PADILLA - 08/16/2014 10:58 ACUTE CARE PHYSICIAN GI Detailed GI Patient Stated Symptoms : Diarrhea, Nausea Bowel Movement Last Date : 08/16/2014 ACUTE CARE PHYSICIAN Stool Color : Green Stool Description : Liquid GI Note : emesis has been green in color. REYNOLD PADILLA - 08/16/2014 10:58 ACUTE CARE PHYSICIAN Incision/Wound Incision/Wound Care Grid Activity : Assessed Type : Laceration Location : Upper arm (Comment: under arm/back [REYNOLD PADILLA - 08/16/2014 11:40 ACUTE CARE PHYSICIAN] ) Laterality : Right, Lateral, Posterior Description : Drainage/Exudate, Gaping Color : Red Drainage : Bloody Drainage Amount : Moderate Surrounding Tissue : No signs or symptoms of localized infection PADILLA REYNOLD Deleon - 08/16/2014 11:40 ACUTE CARE PHYSICIAN Musculoskeletal Fall Prevention Education Provided : SRI PADILLA REYNOLD Pancho - 08/16/2014 10:58 ACUTE CARE PHYSICIAN Social Habits Tobacco Use/Currently Using : No Smoking Status : Never smoker REYNOLD PADILLA RN - 08/16/2014 10:58 ACUTE CARE PHYSICIAN Alcohol Use Grid Alcohol Use : No REYNOLD PADILLA RN - 08/16/2014 10:58 ACUTE CARE PHYSICIAN Recreational Drug Use Grid Drug Use : None REYNOLD PADILLA RN - 08/16/2014 10:58 ACUTE CARE PHYSICIAN Source: [facility] [employer] Document Id: [id number] ACUTE CARE PHYSICIAN!18 E CARE PHYSICIAN documented in this encounter Miscellaneous Notes Miscellaneous - Reynold Padilla R.N. - 08/16/2014 3:10 PM CST Discharge Vital Signs Form Discharge Vital Signs Form Entered On: 08/16/2014 15:10 ACUTE CARE PHYSICIAN Performed On: 08/16/2014 15:10 ACUTE CARE PHYSICIAN by REYNOLD PADILLA RN Vital Signs Temperature Core : 37.4 DegC(Converted to: 99.3 DegF) Apical Heart Rate : 61 /min Respiratory Rate : 18 /min Systolic Blood Pressure : 113 mmHg Diastolic Blood Pressure : 84 mmHg NIBP Mean : 94 mmHg BP Location : Right upper extremity SpO2 : 97 % Oxygen Saturation Monitoring Frequency : Intermittent Oxygen Therapy : Room air Height : 167 cm(Converted to: 5 ft 6 inch(es)) REYNOLD PADILLA RN - 08/16/2014 15:10 ACUTE CARE PHYSICIAN Source: [facility] [employer] Document Id: [id number] ACUTE CARE PHYSICIAN!13 E CARE PHYSICIAN Miscellaneous - Reynold Padilla R.N. - 08/16/2014 3:00 PM CST Valuables/Belongings Valuables/Belongings Entered On: 08/16/2014 15:10 ACUTE CARE PHYSICIAN Performed On: 08/16/2014 15:00 ACUTE CARE PHYSICIAN by REYNOLD PADILLA RN Valuables/Belongings Belongings Sent Home With : all belongings sent upstairs with patient REYNOLD PADILLA RN - 08/16/2014 15:10 ACUTE CARE PHYSICIAN [facility] Document Id: [id number] ACUTE CARE PHYSICIAN!3 E CARE PHYSICIAN Lisacellaneous - Reynold Padilla R.N. - 08/16/2014 11:15 AM CST Communication Note Communication Note Entered On: 08/16/2014 11:45 ACUTE CARE PHYSICIAN Performed On: 08/16/2014 11:15 ACUTE CARE PHYSICIAN by REYNOLD PADILLA RN Communication Assessment Communication Note : During triage, orthostatic blood pressure was being taken, pt becamedizzy, light headed and unsteady during standing BP. BP at that time was 113/81 with a pulse of 105. REYNOLD PADILLA RN - 08/16/2014 11:44 ACUTE CARE PHYSICIAN [facility] Document Id: [id number] ACUTE CARE PHYSICIAN!3 E CARE PHYSICIAN Lisacellaneous - Reynold Padilla R.N. - 08/16/2014 10:49 AM CST Facility Charge Ticket 2.0 11.0 DX Facility Charge Ticket 2.0 11.0 DX Entered On: 08/16/2014 15:10 ACUTE CARE PHYSICIAN Performed On: 08/16/2014 10:49 ACUTE CARE PHYSICIAN by REYNOLD PADILLA RN Facility Charge Ticket 2.0 11.0 DX ED Other Charges : Standard ED Encounter TVL Level Translated RTF : Fall TVL:4 TVL Level for Facility Charge Ticket : Level 4 Arrival Mode Calc : 129 Mode of Arrival ED : Private vehicle [facility] Mode of Arrival Interpreted : Standard [facility] Process Management : None Order Management RTF : Laboratory Basic Metabolic Panel,08/16/14 11:56,WILLIE HER MD Completed CBC (includes Auto Differential),08/16/14 11:56,WILLIE HER MD Completed Urinalysis with Culture if Indicated,08/16/14 11:56,WILLIE HER MD Completed Lactic Acid,08/16/14 11:56,WILLIE HER MD Completed Manual Differential,08/16/14 12:41,WILLIE HER MD Completed Influenza A/B Antigen,08/16/14 14:10,WILLIE HER MD Completed Culture Blood x 2,08/16/14 11:56,WILLIE HER MD Ordered Culture Blood,08/16/14 11:56,WILLIE HER MD Ordered Culture Blood,08/16/14 11:56,WILLIE HER MD Ordered Culture Urine,08/16/14 15:02,WILLIE HER MD Ordered Xray XR Abdomen 2 Views,08/16/14 11:56,WILLIE HER MD Completed XR Chest 2 Views,08/16/14 13:28,WILLIE HER MD Completed [facility] Order Management : Lab tests, Xray - plain films 30 Minutes Critical Care : No Nursing Notes RTF : Nursing Notes Orthostatics,08/16/14 11:13,REYNOLD PADILLA VIOLIN REPAIRER Primary Assessment,08/16/14 10:58,REYNOLD PADILLA VIOLIN REPAIRER Nurse Reassess,08/16/14 13:56,REYNOLD PADILLA VIOLIN REPAIRER Nurse Reassess,08/16/14 13:44,VIMAL BURK VIOLIN REPAIRER Nurse Reassess,08/16/14 12:33,REYNOLD PADILLA RN Communication Note,08/16/14 11:15,REYNOLD PADILLA RN [facility] Nursing Assessment : Triage and 3-5 nursing assessments [facility] Disposition : Admit - Observation, Inpatient, or other Outpatient [facility] Total Points with Diagnosis Control : 14 [facility] Visit Level : 08226 Level 5 Treatments Prior to Arrival : Acetaminophen REYNOLD PADILLA RN - 08/16/2014 15:10 ACUTE CARE PHYSICIAN Source: [facility] [employer] Document Id: [id number] ACUTE CARE PHYSICIAN!18 E CARE PHYSICIAN documented in this encounter Plan of Treatment Not on filedocumented as of this encounter Procedures Procedure Name Priority Date/Time Associated Comments Diagnosis BACTERIAL CULTURE, Routine 08/16/2014 3:02 PM Res ults for this AEROBIC, URINE ACUTE CARE PHYSICIAN procedure are in the results section. URINALYSIS, Routine 08/16/2014 2:30 PM Results f or this MIDSTREAM, WITH ACUTE CARE PHYSICIAN procedure ar e in CULTURE IF INDICATED the res ults section. INFLUENZA A/B Routine 08/16/2014 2:15 PM Results for this ACUTE CARE PHYSICIAN procedure are i n the results section. DX CHEST AP OR PA AND Routine 08/16/2014 1:51 PM Results for this LATERAL 2 VIEWS ACUTE CARE PHYSICIAN procedure ar e in the results section. BACTERIAL CULTURE, Routine 08/16/2014 12:35 Resul ts for this BLOOD PM ACUTE CARE PHYSICIAN procedure are i n the results section. DX ABDOMEN SUPINE Routine 08/16/2014 12:23 Result s for this WITH UPRIGHT OR PM ACUTE CARE PHYSICIAN procedure ar e in DECUBITUS 2 VIEWS the result s section. HXMANUAL DIFFERENTIAL Routine 08/16/2014 12:15 Re sults for this PM ACUTE CARE PHYSICIAN procedure are i n the results section. BACTERIAL CULTURE, Routine 08/16/2014 12:15 Resul ts for this BLOOD PM ACUTE CARE PHYSICIAN procedure are i n the results section. CBC WITH Routine 08/16/2014 12:15 Results for this DIFFERENTIAL, B PM ACUTE CARE PHYSICIAN procedure ar e in the results section. LACTATE, B/P Routine 08/16/2014 12:15 Results for this PM ACUTE CARE PHYSICIAN procedure are i n the results section. BASIC METABOLIC Routine 08/16/2014 12:15 Results for this PANEL, S/P PM ACUTE CARE PHYSICIAN procedure are i n the results section. documented in this encounter Results Bacterial Culture, Aerobic, Urine (08/16/2014 3:02 PM ACUTE CARE PHYSICIAN) [facility] Bacterial POWERCHART Culture, Aerobic, Urine HXFinal No growth POWERCHART Specimen Anatomical Collection Method Collection Time Receive d Time (Source) Location / / Volume Laterality Urine, First 08/16/2014 3:02 PM 4 3:02 Voided ACUTE CARE PHYSICIAN PM ACUTE CARE PHYSICIAN Willie Her M.D. LAB MICROBIOLOGY - GENERAL O RDERABLES Performing Organization Address City/State/ZIP Code Phon e Number POWERCHART (ABNORMAL) Urinalysis, Midstream, with culture if indicated (08/16/2014 2:30 PM ACUTE CARE PHYSICIAN) [facility] gist Method Time Signature Source Clean Void POWERCHART Urine HXUr Color Yellow Colorless POWERCHART Clarity Slightly Clear POWERCHART Cloudy (A) Glucose Negative Negative POWERCHART MGDL HXBILIRUBIN Small (A) Negative POWERCHART Ketones, QL(U) 15 (A) Negative POWERCHART MGDL Specific 1.020 POWERCHART [place], POCT, U HXBLOOD Negative Negative POWERCHART pH, POCT, Urine 5.5 <5.0 POWERCHART Protein, Ur, 100 (A) Negative POWERCHART Dip MGDL Urobilinogen 0.2 0.2 MGDL POWERCHART HXNITRITE Negative Negative POWERCHART Leukocyte Negative Negative POWERCHART Esterase HXUR WBC. 4-10 None Seen POWERCHART HPF HXUR RBC. Occ-2 None Seen POWERCHART HPF HXUR Bacteria, Present (A) None Seen POWERCHART Casts, Hyaline 41-50 (A) None Seen POWERCHART LPF Specimen (Source) Anatomical Collection Method Collection Time Re ceived Time Location / / Volume Laterality Urine 08/16/2014 2:30 PM ACUTE CARE PHYSICIAN Willie Her M.D. LAB URINE ORDERABLES Performing Organization Address City/[facility]/ZIP Code Phon e Number POWERCHART (ABNORMAL) Influenza A/B (08/16/2014 2:15 PM ACUTE CARE PHYSICIAN) [facility] gist Method Time Signature HXInfluenza A (POSITIVE POWERCHART and B AG ) Comment: If result is negative, infectio n due to Influenza A or B can not be ruled out. Antigen in the specimen may be belo w the detection limit. Confirm with PCR testing, if desired. HXFinal Positive for Influenzae A protein antigen. POWERCHART HXFinal This result does not identify any specific Influenzae A POWERCHART virus subtype. HXFinal Negative for Influenzae B protein antigen. POWERCHART HXFinal Reference: Negative for Influenzae A and Influenzae B POWERCHART protein antigens. Specimen (Source) Anatomical Collection Method Collection Time Re ceived Time Location / / Volume Laterality Nasal 08/16/2014 2:15 PM ACUTE CARE PHYSICIAN Willie Her M.D. LAB MICROBIOLOGY - GENERAL O RDERABLES Performing Organization Address City/State/ZIP Code Phon e Number POWERCHART DX Chest AP or PA and Lateral 2 Views (08/16/2014 1:51 PM ACUTE CARE PHYSICIAN) Anatomical Region Laterality Modality Chest N/A Radiographic Imaging Specimen (Source) Anatomical Collection Method Collection Time Re ceived Time Location / / Volume Laterality 08/16/2014 1:51 PM ACUTE CARE PHYSICIAN Impressions 08/16/2014 2:03 PM ACUTE CARE PHYSICIAN No acute cardiopulmonary process noted. Narrative 08/16/2014 2:03 PM ACUTE CARE PHYSICIAN EXAM: XR Chest 2 Views INDICATION: cough COMPARISON: None. FINDINGS: The heart is normal in size. T here is a calcified granuloma in the right lower lung field. The lungs are otherwise clear. Procedure Note Radha Ding M.D. / ProviderCynthia M.D. - 01/12/2017 EXAM: XR Chest 2 Views INDICATION: cough COMPARISON: None. FINDINGS: The heart is normal in size. T here is a calcified granuloma in the right lower lung field. The lungs are otherwise clear. IMPRESSION: No acute cardiopulmonary pro cess noted. Job Albarado(R)(CT)Per(R) IMG DIAGNOSTIC IMAGING PROCEDURES Bacterial Culture, Blood (08/16/2014 12:35 PM ACUTE CARE PHYSICIAN) [facility] gist Method Time Signature Bacteria/Jessie POWERCHART da Culture, Blood HXPre No growth POWERCHART at 17 Hours HXPre No growth POWERCHART at 26 Hours HXFinal No growth POWERCHART at 5 days. Specimen (Source) Anatomical Collection Method Collection Time Re ceived Time Location / / Volume Laterality Blood 08/16/2014 12:35 PM ACUTE CARE PHYSICIAN Willie Her M.D. LAB MICROBIOLOGY - GENERAL O RDERABLES Performing Organization Address City/State/ZIP Code Phon e Number POWERCHART DX Abdomen Supine with Upright or Decubitus 2 Views (08/16/2014 12:23 PM ACUTE CARE PHYSICIAN) Anatomical Region Laterality Modality Abdomen Right Radiographic Imaging Specimen (Source) Anatomical Collection Method Collection Time Re ceived Time Location / / Volume Laterality 08/16/2014 12:23 PM ACUTE CARE PHYSICIAN Impressions 08/16/2014 12:34 PM ACUTE CARE PHYSICIAN No localizing features are identified Narrative 08/16/2014 12:34 PM ACUTE CARE PHYSICIAN EXAM: XR Abdomen 2 Views INDICATION: pain COMPARISON: None. FINDINGS: No free air. Granulomatous calcifications right lung base. Nonspecific bowel gas pattern. No eviden ce for bowel obstruction. Degenerative changes lower lumbar spine. Procedure Note Sheeba More D.O. / Provider, Catrachita rizvi M.D. - 01/12/2017 EXAM: XR Abdomen 2 Views INDICATION: pain COMPARISON: None. FINDINGS: No free air. Granulomatous calcifications right lung base. Nonspecific bowel gas pattern. No eviden ce for bowel obstruction. Degenerative changes lower lumbar spine. IMPRESSION: No localizing features are i dentified Job Abbott R.T.(R)(CT), R.T.(R) IMG DIAGNOSTIC IMAGING PROCEDURES (ABNORMAL) HXMANUAL DIFFERENTIAL (08/16/2014 12:15 PM ACUTE CARE PHYSICIAN) Analysis Performed At Patho logist Time Signature Absolute 8.65 (H) 1.70 - POWERCHART Neutrophil 7.00 X109L Count Absolute 46.0 (L) 50.0 - POWERCHART Neutrophil 70.0 Count HX Lymph Manual 50.0 (H) 25.0 - POWERCHART 45.0 Monocytes 4.0 0.0 - 8.0 POWERCHART HX Eos Manual 0.0 0.0 - 4.0 POWERCHART HXBaso Manual. 0.0 0.0 - 2.0 POWERCHART PLT Estimate Adequate POWERCHART Smudge Cells Present POWERCHART Specimen Anatomical Collection Method Collection Time Receive d Time (Source) Location / / Volume Laterality Blood 08/16/2014 12:15 08/16/2014 PM ACUTE CARE PHYSICIAN 12:15 PM ACUTE CARE PHYSICIAN Willie Her M.D. LAB HISTORICAL ORDERS Performing Organization Address City/State/ZIP Code Phon e Number POWERCHART (ABNORMAL) CBC with Differential (08/16/2014 12:15 PM ACUTE CARE PHYSICIAN) Patholo gist Method Time Signature Leukocytes 18.8 (H) 3.5 - 10.5 POWERCHART X109L Erythrocytes 4.40 3.90 - POWERCHART 5.03 [id number] Hemoglobin 12.9 12.0 - POWERCHART 15.5 GDL Hematocrit 40.6 34.9 - POWERCHART 44.5 MCV 92.3 81.6 - POWERCHART 98.3 FL HX RDW 14.3 11.9 - POWERCHART 15.5 Platelet Count 229 150 - 450 POWERCHART X109L HXDifferential? Manual POWERCHART Specimen (Source) Anatomical Collection Method Collection Time Re ceived Time Location / / Volume Laterality Blood 08/16/2014 12:15 PM ACUTE CARE PHYSICIAN Willie Her M.D. LAB BLOOD ADD-ON Performing Organization Address City/State/ZIP Code Phon e Number POWERCHART Lactate (08/16/2014 12:15 PM ACUTE CARE PHYSICIAN) P athologist Signature Lactate, P 1.2 0.5 - 2.2 POWERCHART MMOLL Specimen (Source) Anatomical Collection Method Collection Time Re ceived Time Location / / Volume Laterality Blood 08/16/2014 12:15 PM ACUTE CARE PHYSICIAN Willie Her M.D. LAB BLOOD NON ADD-ON Performing Organization Address City/State/ZIP Code Phon e Number POWERCHART (ABNORMAL) BMP (Basic Metabolic Panel) (08/16/2014 12:15 PM ACUTE CARE PHYSICIAN) P athologist Signature Sodium, S 142 135 - 145 POWERCHART MMOLL Potassium, S 2.6 (L) 3.5 - 5.1 POWERCHART MMOLL Comment: This result has been repeated f or confirmation. Chloride, S 98 98 - 107 MMOLL POWERCHART CO2 Total 25 22 - 29 MMOLL POWERCHART BUN (Blood Urea Nitrogen), S 18 6 - 24 MGDL POWERCHART Creatinine 1.5 (H) 0.6 - 1.1 MGDL POWERCHART Calcium, Total, S 9.2 8.8 - 10.3 MGDL POWERC SUN Anion Gap 20 (H) 7 - 15 MMOLL POWERCHART HXeGFR (MDRD) 36.2 (L) >=60.0 MLMINSA POWERCHART eGFR Black/ 43.8 (L) >=60.0 MLMINSA POWERCHART Glucose 127 70 - 140 MGDL POWERCHART Specimen (Source) Anatomical Collection Method Collection Time Re ceived Time Location / / Volume Laterality Blood 08/16/2014 12:15 PM ACUTE CARE PHYSICIAN Willie Her M.D. LAB BLOOD ADD-ON Performing Organization Address City/State/ZIP Code Phon e Number POWERCHART Bacterial Culture, Blood (08/16/2014 12:15 PM ACUTE CARE PHYSICIAN) Patholo gist Method Time Signature Bacteria/Jessie POWERCHART da Culture, Blood HXPre No growth POWERCHART at 17 Hours HXPre No growth POWERCHART at 26 Hours HXFinal No growth POWERCHART at 5 days. Specimen (Source) Anatomical Collection Method Collection Time Re ceived Time Location / / Volume Laterality Blood 08/16/2014 12:15 PM ACUTE CARE PHYSICIAN Willie Her M.D. LAB MICROBIOLOGY - GENERAL O RDERABLES Performing Organization Address City/State/ZIP Code Phon e Number POWERCHART documented in this encounter Visit Diagnoses Not on filedocumented in this encounter
--- OUTSIDE RECORDS SUMMARY | 2022-05-22 06:13 | XMS_ITS | Encounter Summary ---
:1950 Author Organization [facility] Address [address] [place] [address] Care Team Providers Name Role Phone Unavailable Primary Care Provider Unavailable Encounter Details Date Type Department Care Team Description 08/16/2014 - Hospital Encounter HX [facility] Ap King, 08/17/2014 Kumar [address] [place] [address] (Wo rk) Social History Tobacco Use Types Packs/Day Years Used Date Smoking Tobacco: Never Assessed Sex Assigned at Date Recorded Not on file documented as of this encounter Last Filed Vital Signs Vital Sign Reading Time Taken Comments Blood Pressure 142/59 08/17/2014 6:38 PM STATION ENGINEER Pulse 74 08/17/2014 6:38 PM STATION ENGINEER Temperature - - Respiratory Rate 18 08/17/2014 6:38 PM STATION ENGINEER Oxygen Saturation - - Inhaled Oxygen Concentration - - Weight 84.1 kg (185 lb 6.5 oz) 08/17/2014 6:10 AM STATION ENGINEER Height 167 cm (5' 5.75) 08/17/2014 6:41 PM STATION ENGINEER Body Mass Index 30.16 08/17/2014 6:10 AM STATION ENGINEER documented in this encounter Discharge Summaries Mally Rutledge, RPopeyeN. - 08/17/2014 6:54 PM CST Discharge Summary Discharge Summary Entered On: 08/17/2014 18:54 STATION ENGINEER Performed On: 08/17/2014 18:54 STATION ENGINEER by MALLY RUTLEDGE RN DC Information Accompanied By : Nurse aide Date/Time of Discharge : 08/17/2014 18:55 STATION ENGINEER MALLY RUTLEDGE RN - 08/17/2014 18:54 STATION ENGINEER Source: [facility] POWERCHART Document Id: [id number] STATION ENGINEER!4 ION ENGINEER Mally Rutledge R.N. - 08/17/2014 6:45 PM CST Hospital Discharge Instructions [facility] [address] [place] [address] Patient Discharge Instructions Name: MICAELA SMILEY Current Date: 08/17/2014 18:45:16 : 1950 12:00 PM [facility] Number: [id number] Patient Address: [address] [place] [phone] Patient Primary Care Provider: Name: PCP, KATARINA Phone: Discharge Diagnosis: Diarrhea NOS; Hypokalemia; Influenza NOS [facility] in [place] would like to thank you for allowing us to assist you with your healthcare needs. The following includes patient education materials and information regarding your injury/illness. Comment: SHERICEMICAELA has been given the following list of follow-up instructions, medication list, and patient education materials: Follow-up Instructions With: Address: When: IZZY BRADLEY [address] [place] [id number] 08/24/2014 10:30 AM Comments: Hospital follow-up appointment scheduled for Sunday, August 24, 2014 at 10:30 a.m. Clinic phone number: [phone]. Discharge Diet Diet Type: No Added Salt, 3-5 Grams Discharge Instruction General Activity Limitations: Activity as tolerated Medications Medication/Strength How to Take Indications/Special Instructions/Comments/Notes for Patient Medication Changes/Routing atorvastatin (Lipitor 40 mg oral tablet) 1 Tablet(s), Oral, once a day (at bedtime) budesonide (budesonide) See Instructions 3 capsules daily for a week, then a tapering dose for several months loperamide (Imodium A-D) 2 mg, Oral, every 4 hours as needed for Diarrhea nizatidine (nizatidine 150 mg oral capsule) 1 cap, Oral, two times a day as needed for Anaphylaxis oseltamivir (oseltamivir 6 mg/mL oral suspension) 5 Milliliter, Oral, two times a day [place] [address] [address] [facility] [place] [id number] potassium chloride (K-Dur 20 mEq oral tablet, extended release) 1 Tablet(s), Oral, two times a day sertraline (Zoloft 100 mg oral tablet) 1 Tablet(s), Oral, once a day tafluprost ophthalmic (Zioptan) 1 Drops, Eyes(Both), every evening triamterene-hydrochlorothiazide (triamterene-hydrochlorothiazide 37.5 mg-25 mg oral capsule) 1 cap, Oral, once a day Stop Taking the Following Medications: Medication list as of 08-17-14 18:45 Attention: If you have any medications at home that are not on this list, DO NOT take them until youcontact your provider for clarification. Give a copy of your medication list to your primary care provider. Update your medication list any time medications or doses are changed and carry your medication list at all times in case of emergency. Comment: Electronically Signed By: AP MURRY MD Signed On:17-AUG-2014 15:39:23 Your Upcoming Appointments Date Time Location Provider No Appointments found SHERICE Urbano CAROL , have received the attached patient education materials/instructions and have verbalized understanding: Patient Signature Date Time Care Provider Signature Date Time Diet For Vomiting Or Diarrhea [6 Yr-Adult] Once the vomiting stops, then... During The First 12-24 Hours follow the diet below: ?? BEVERAGES: Plain water, sport drinks like Gatorade, soft drinks without caffeine; mineral water (plain or flavored); clear fruit juices, decaffeinated tea and coffee. ?? SOUPS: Clear broth, consomm?, and bouillon ?? DESSERTS: Plain gelatin (Jell-O), popsicles and fruit juice bars. As you feel better, you may add6-8 oz of yogurt per day. During The Next 24 Hours you may add the following to the above: ?? Hot cereal, plain toast, bread, rolls, crackers ?? Plain noodles, rice, mashed potatoes, chicken noodle or rice soup ?? Unsweetened canned fruit (avoid pineapple), bananas Limit fat intake to less than 15 grams per day by avoiding margarine, butter, oils, mayonnaise, sauces, gravies, fried foods, peanut butter, meat, poultry, and fish. Limit fiber; avoid raw or cooked vegetables, fresh fruits (except bananas), and bran cereals. Limit caffeine and chocolate. No spices or seasonings except salt. During The Next 24 Hours Gradually resume a normal diet, as you feel better and your symptoms lessen. ?? [id number] [place] [address]. All rights reserved. This information is not intended as a substitute for professional medical care. Always follow your healthcare professional's instructions. Laceration, Extremity (Sutures, [place], Or Tape) A laceration is a cut through the skin. This will usually require stitches (sutures) or estevan if it is deep. Minor cuts may be treated with surgical tape closures. Home care The following guidelines will help you care for your laceration at home: ?? Keep the wound clean and dry. If a bandage was applied and it becomes wet or dirty, replace it. Otherwise, leave it in place for the first 24 hours, then change it once a day or as directed. ?? If stitches or estevan were used, clean the wound daily: ?? After removing the bandage, wash the area with soap and water. Use a wet cotton swab to loosen and remove any blood or crust that forms. ?? After cleaning, keep the wound clean and dry. Talk with your doctor before applying any antibiotic ointment to the wound. Reapply the bandage. ?? You may remove the bandage to shower as usual after the first 24 hours, but do not soak the area in water (no swimming) until the stitches or estevan are removed. ?? If surgical tape closures were used, keep the area clean and dry. If it becomes wet, blot it dry with a towel. ?? The doctor may prescribe an antibiotic cream or ointment to prevent infection. Do not stop takingthis medication until you have finished the prescribed course or the doctor tells you to stop. The doctor may also prescribe medications for pain. Follow the doctors instructions for taking these medica tions. If you have chronic liver or kidney disease or ever had a stomach ulcer or GI bleeding, talk with your doctor before using these medicines. Follow-up care Follow up with your health care provider. Most skin wounds heal within ten days. However, an infection may sometimes occur despite proper treatment. Therefore, check the wound daily for the signs of infection listed below. Stitches and estevan should be removed within 7--14 days. If surgical tape closures were used, you may remove them after 10 days, if they have not fallen off by then. Notify your doctor if you notice persistent numbness or weakness in the injured extremity. (Note: A radiologist will review any X-rays that were taken. We will notify you of any new findings that may affect your care.) When to seek medical care Get prompt medical attention if any of these occur: ?? Increasing pain in the wound ?? Redness, swelling, or pus coming from the wound ?? Fever of 100.4?F (38?C) or higher, or as directed by your health care provider ?? If stitches or estevan come apart or fall out before your next appointment ?? If the surgical tape closures fall off within seven days, or the wound edges re-open ?? Bleeding not controlled by direct pressure ?? [id number] [facility], [address] [place] [address], [place] [address]. All rights reserved. This information is not intended as a substitute for professional medical care. Always follow your healthcare professional's instructions. This document has images extracted. Please consider using [employer] for all your patient education needs. Source: [facility] POWERCHART Document Id: [id number] ION ENGINEER Mally Rutledge R.N. - 08/17/2014 6:45 PM CST Hospital Discharge Medication List [facility] [address] [place] [address] Discharge Medication List Name: MICAELA SMILEY Current Date: 08/17/2014 18:45:14 : 1950 12:00 PM [facility] Number: [id number] Patient Address: [address] [place] [phone] Patient Primary Care Provider: Name: PCPKATARINA Phone: Discharge Diagnosis: Diarrhea NOS; Hypokalemia; Influenza NOS [facility] in [place] would like to thank you for allowing us to assist you with your healthcare needs. The following includes patient education materials and information regarding your injury/illness. Medications Medication/Strength How to Take Indications/Special Instructions/Comments/Notes for Patient Medication Changes/Routing atorvastatin (Lipitor 40 mg oral tablet) 1 Tablet(s), Oral, once a day (at bedtime) budesonide (budesonide) See Instructions 3 capsules daily for a week, then a tapering dose for several months loperamide (Imodium A-D) 2 mg, Oral, every 4 hours as needed for Diarrhea nizatidine (nizatidine 150 mg oral capsule) 1 cap, Oral, two times a day as needed for Anaphylaxis oseltamivir (oseltamivir 6 mg/mL oral suspension) 5 Milliliter, Oral, two times a day New Routed to [address] [phone] potassium chloride (K-Dur 20 mEq oral tablet, extended release) 1 Tablet(s), Oral, two times a day sertraline (Zoloft 100 mg oral tablet) 1 Tablet(s), Oral, once a day tafluprost ophthalmic (Zioptan) 1 Drops, Eyes(Both), every evening triamterene-hydrochlorothiazide (triamterene-hydrochlorothiazide 37.5 mg-25 mg oral capsule) 1 cap, Oral, once a day Stop Taking the Following Medications: Medication list as of 08-17-14 18:45 Attention: If you have any medications at home that are not on this list, DO NOT take them until youcontact your provider for clarification. Give a copy of your medication list to your primary care provider. Update your medication list any time medications or doses are changed and carry your medication list at all times in case of emergency. Comment: Electronically Signed By: AP MURRY MD Signed On:17-AUG-2014 15:39:23 Source: [employer] Document Id: [id number] ION ENGINEER Mally Rutledge R.N. - 08/17/2014 6:41 PM CST Discharge Summary Discharge Summary Entered On: 08/17/2014 18:44 STATION ENGINEER Performed On: 08/17/2014 18:41 STATION ENGINEER by MALLY RUTLEDGE RN [place] Information Discharged to : Home independently Current Home Treatments : None Home Equipment : None Professional Skilled Services : None Special Services and Community Resources : None Mode of Discharge : Wheelchair Discharge Transportation : Private vehicle Accompanied By : Nurse aide MALLY RUTLEDGE RN - 08/17/2014 18:41 STATION ENGINEER Education General Patient Education Powergrid Topics : Discharge instructions/Medication list Individuals Taught : Patient Barriers to Learning : None evident Teaching Method : Explanation, Printed materials Teaching Evaluation : Able to teach back MALLY RUTLEDGE RN - 08/17/2014 18:41 STATION ENGINEER Valuables/Belongings Valuables/Belongings Grid Valuables with Patient Clothes, Patient Valuables : Jacket, Shirt, Shoes, Other: duffel bag Electronic Devices : Cell phone, Other: jerald, cell phone product management intern Jewelry : Earrings, Rings Monetary Items : Purse MALLY RUTLEDGE RN - 08/17/2014 18:41 STATION ENGINEER Belongings Sent Home With : Daughter Home Medication Disposition : Sent home with family Comment : All belongings sent with patient at discharge MALLY RUTLEDGE RN - 08/17/2014 18:41 STATION ENGINEER Source: [facility] [employer]Place Document Id: [id number] STATION ENGINEER!28 ION ENGINEER documented in this encounter Progress Notes Ap Murry M.D. - 08/17/2014 12:00 AM CST [id number] Document Contains Addenda SUBJECTIVE: Micaela is a 64-year-old female, who presented to the emergency room yesterday with a fall, and laceration to her right axilla, after becoming dizzy and lightheaded, in the shower. The patient has been struggling with gastroenteritis (vomiting and diarrhea), for about 2 days prior to presentation. She was found to be influenza A-positive and significantly hypokalemic, with a potassium of 2.6. The patient was thus admitted for IV replacement fluids, and treatment with Tamiflu. She notes that she is feeling much better today. She has been up independent in her room, without any lightheadedness or dizziness. She notes that she is urinating well. She has not had any vomiting since admission. She is still having some loose stools, and noting even some slight fecal incontinence with coughing.The patient does have a history of microscopic colitis and does struggle with chronic diarrhea as anoutpatient. Cough: Patient still continues to have a cough, but it is not severe, and she has not had any posttussive emesis. She still continues to have some intermittent fevers, which would be expected with influenza, but she notes overall she is doing better. She has been eating without difficulty,and does request to go home. VITALS: Temp of 37.7, but she did have a T-max of 38.9, overnight, pulse 75, respiratory rate of 12,O2 sats of 95%, 96% on room air, blood pressure of 125/55. PHYSICAL EXAMINATION: GENERAL: The patient is alert. She does appear to have better color and more fullness to her face today. She is smiling and conversing easily. RESPIRATORY: Lungs are clear on auscultation without wheezes or crackles, but she does have a deep, wet sounding cough. CARDIOVASCULAR: Heart is regular rate and rhythm. No murmurs, gallops, rubs. ABDOMEN: Soft, nontender, nondistended. Positive bowel sounds. No guarding or rigidity. EXTREMITIES: She does have bilateral 1+ pitting edema. SKIN: Laceration to her right axilla has estevan in place. She does now today have ecchymosis surrounding the laceration site, and along the inner aspect of her arm. There is no concerning drainage or swelling. TEST RESULTS: White blood cell count slightly improved today at 17.7, hemoglobin 11.6, platelets of 200. Sodium 138, potassium 3.2, creatinine stable at 1.2. IMPRESSION/REPORT/PLAN: 1. Influenza A. Currently on Tamiflu. Will continue with a full 5 day course of this. She continues to have fevers, which would be expected given the viral illness, but her white blood cell count is slightly down today. 2. Hypokalemia, improving on replacement. The patient does have chronic hypokalemia secondary to herfrequent diarrhea from her microscopic colitis. We did continue with oral replacement this afternoon. Plan will be to check a potassium level at 5:00. If it is improved, we will plan to discharge her to home, and she can increase her home dosing of potassium to 20 mEq twice per day, and follow up withher primary as an outpatient for further evaluation. 3. Gastroenteritis with vomiting and diarrhea, still having persistent diarrhea. This certainly could be due to her underlying microscopic colitis, but also possibly due to the influenza infection, andnow the Tamiflu. We can help control her frequent stools with some Imodium; but, hopefully, this will improve over the next day. Given her hypokalemia, diarrhea will only worsen this. DISPOSITION: We could probably discharge patient to home later this evening, if her potassium is improved. ADDENDUM: Patient's potassium blood drawn this evening did return back at 3.4. Given that this is close to normal and probably where patient's baseline is, we will discharge her to home this evening. Increase her potassium to 20 mEq twice per day. Continue with Imodium to help control her diarrhea. She should follow up with her primary care physician in about a week and a half to have her estevan removed from her right ankle laceration. Ap Murry M.D./pos Electronically Signed By: AP MURRY MD On: 08/23/2014 08:34 AM Source: [facility] [email or web address] Document Id: [id number] ION ENGINEER documented in this encounter H&P Notes Ap Murry M.D. - 08/16/2014 2:26 PM CST [id number] CHIEF COMPLAINT/REASON FOR VISIT Fall. HISTORY OF PRESENT ILLNESS Micaela is a 64-year-old female with an underlying history of microscopic colitis and chronic renal failure, who presented to the ER this morning after sustaining a fall in the shower with a laceration to her right axilla. The patient has been ill for the past 2 to 3 days. She notes that symptoms started late Saturday evening. She had a little bit of a sore throat, and then started to have persistent vomiting over the next 24-36 hours, as well as diarrhea 4 to 5 times per day. She also started coughing as well as having fevers, chills and sweats. This morning, she got up to use the shower and became light-headed and fell against the water on-off handle in the shower, sustaining a laceration to her right axilla. She did not lose any consciousness nor did she have any head strike but certainly has not been able to keep anything down, and noted that she was dizzy upon sitting up. She does endorse that she received her flu vaccination this season and has not had any specific his contacts for influenza that she knows of. In the ER, the patient was found to have an 8.4 cm laceration to her right axilla which was repaired with estevan. She did have blood work which showed elevated white blood cell countat 18.8 with predominantly lymphocytes and a potassium of 2.6 with a creatinine of 1.5, which was her baseline, and influenza testing was found to be positive. PAST MEDICAL/SURGICAL HISTORY Past medical history: 1. Chronic renal failure, stage 3. 2. Microscopic colitis. 3. Hypertension. 4. Hysterectomy. 5. Cholecystectomy. 6. Corneal transplant. MEDICATIONS 1. Budesonide, tapered dose. 2. Imodium as needed. 3. K-Dur 20 mEq by mouth twice a day. 4. Lipitor 40 mg by mouth at bedtime. 5. Nizatidine 150 mg by mouth twice a day as needed. 6. Triamterene/hydrochlorothiazide 37.5/25 mg 1 tab by mouth daily. 7. Zoloft 100 mg by mouth daily. 8. Zioptan 1 drop to both eyes at bedtime. ALLERGIES No known drug allergies. FAMILY HISTORY Mother, alive, has a history of ulcerative colitis. Father, hypertension and chronic renal failure, which did end up with dialysis prior to his . Brother, hypertension and type 2 diabetes. Another brother who at a fairly young age. SOCIAL HISTORY The patient is . She currently lives alone. She does have 4 grown children. She is a nonsmoker. She notes only some occasional rare alcohol use. She does note receiving her flu vaccine this season. SYSTEMS REVIEW Please see HPI above for pertinent positives and negatives. She denies really feeling significant shortness of breath or having any chest pain or chest pressure. She denies having any abdominal pain. She has not had vomiting now for about 16 to 18 hours. She has not really had any by mouth intake however today, and she presented shortly after her fall. She has not seen any blood in her stool. She hasnot had any dysuria or hematuria. She does note having chronic lower extremity edema. This does not seem to be unchanged. She does note that she has not been voiding very frequently due to her decreased oral intake. She denies having any concerning rashes. VITAL SIGNS Currently afebrile with a temp of 37.4, pulse of 61, respiratory rate of 18, O2 sat 97% on room air,blood pressure of 113/84, weight 83.6 kg. PHYSICAL EXAMINATION GENERAL: The patient is alert. She does not appear to be any acute distress, but she is coughing quite frequently with a wet productive sounding cough. HEENT: Head is normocephalic, atraumatic. Pupils equal, reactive to light. Extraocular is intact. There is no conjunctivitis or scleral icterus. Tympanic membranes are pearly macdonald bilaterally with goodlight reflex. Oropharynx shows moist mucous membranes. There is no concerning erythema or exudates. She does have a geographic tongue. NECK: Supple. There is no concerning lymphadenopathy. No thyromegaly. No carotid bruits. RESPIRATORY: Despite patient having a frequent cough, her lung sounds are quite clear. There is no concerning wheezes crackles. CARDIOVASCULAR: Heart is regular rate and rhythm. I do not hear any murmurs, gallops, rubs. ABDOMEN: Soft, nontender, nondistended. Positive bowel sounds. No guarding or rigidity. GENITOURINARY: Exam was deferred. EXTREMITIES: Patient does have 1+ nonpitting edema to her bilateral lower extremities. Her pedal pulses are palpable and symmetric. NEUROLOGIC: She is alert and oriented x3. Cranial cervical 2 to 12 are intact. Exam is nonfocal. SKIN: On observation of her right axilla, she does have a well repaired post laceration with staplespresent. There is no concerning drainage or ecchymosis or edema. DIAGNOSTICS: Blood work shows a white blood cell count of 18.8 with predominantly lymphocytes. Creatinine of 1.5. Lactic acid 1.2. BUN 18. Influenza A, B positive for A, negative for B. Urinalysis doesshow 100 of protein, but negative blood, nitrates and leukocyte esterase. Chest x-ray shows no acute infiltrates. Abdominal x-ray shows normal bowel gas pattern. No evidence for obstruction. IMPRESSION/REPORT/PLAN 1. Influenza A. Given that patient was quite symptomatic and dehydrated secondary to her illness, wewill start her on some Tamiflu at 30 mg twice a day given her renal function. Will continue with supportive therapy, nebs as needed, and IV fluids. 2. Hypokalemia secondary to gastrointestinal losses from vomiting and diarrhea and also due to some chronic underlying hypokalemia. The patient has not been able to tolerate her by mouth potassium replacement at home. We will start her on IV potassium replacement here. Keeping her on telemetry for monitoring. 3. Dehydration secondary to nausea and vomiting, most likely due to her influenza A but also possibly due to some of her colitis. Will continue on IV fluids and use Imodium as needed for loose stools. 4. Microscopic colitis. Will continue to use Imodium as needed. I do not have the exact dosing of her budesonide, so I will not give this while she is here. 5. Hypertension. Blood pressures at this time are fairly well controlled. She did not receive her antihypertensive today. We will plan on restarting them tomorrow as she will likely be improved after some IV fluids. 6. Prophylaxis. Will start her on some subcu heparin. 7. Disposition. Will see how patient is responding tomorrow. 8. Contact precautions will be instituted given influenza A positive status. Ap Murry M.D./pos Electronically Signed By: AP MURRY MD On: 08/23/2014 08:34 AM Source: [facility] MHSDOLBEYNONRADSYS Document Id: [id number] ION ENGINEER documented in this encounter Procedure Notes Mally Rutledge RPopeyeN. - 08/17/2014 6:45 PM CST Peripheral IV Peripheral IV Entered On: 08/17/2014 18:52 STATION ENGINEER Performed On: 08/17/2014 18:45 STATION ENGINEER by MALLY RUTLEDGE RN Peripheral IV Peripheral IV Assess/Intervention Grid Peripheral IV #1 IV Activity : Discontinue, Assessment Date of Insertion : 08/16/2014 STATION ENGINEER IV Site : Antecubital Laterality : Left Catheter Size : 20 Catheter Type : Over the needle Primary Tubing Changed : 08/16/2014 STATION ENGINEER Secondary Tubing Changed : 08/16/2014 STATION ENGINEER Comments (Comment: catheter tip intact [MALLY RUTLEDGE RN - 08/17/2014 18:45 STATION ENGINEER] ) MALLY RUTLEDGE RN - 08/17/2014 18:45 STATION ENGINEER Source: [facility] POWERCHART Document Id: [id number] STATION ENGINEER!12 ION ENGINEER documented in this encounter Consult Notes Chanelle Danielle, R.Ph. - 08/16/2014 5:21 PM CST Pharmacy Clinical Interventions Pharmacy Clinical Interventions Entered On: 08/16/2014 17:22 STATION ENGINEER Performed On: 08/16/2014 17:21 STATION ENGINEER by CHANELLE DANIELLE PharmD Clinical Interventions Intervention Status : Pending Pharmacist Intervention Time : 11-15 Minutes Intervention Type Pharmacy : Nursing Question Pharmacy Additional Information : RN called - patient able to bring in home tafluprost (Zioptan) ophthalmic drops. Currently entered as incomplete from home med list in [facility]. Entered as home med soRN will have task to document on this evening. Instructed her to have AM nursing staff contact pharmacy for proper verification/labeling of medication. CHANELLE DANIELLE PharmD - 08/16/2014 17:21 STATION ENGINEER Source: [facility] Document Id: [id number] STATION ENGINEER!6 ION ENGINEER Conversion, Historical Provider Ser - 08/16/2014 3:34 PM CST Pharmacy Clinical Interventions Pharmacy Clinical Interventions Entered On: 08/16/2014 15:36 STATION ENGINEER Performed On: 08/16/2014 15:34 STATION ENGINEER by MELA QUINONEZ Clinical Interventions Intervention Status : Completed Intervention Task Status : Completed Pharmacist Intervention Time : 11-15 Minutes Intervention Type Pharmacy : Antibiotic Intervention Prescriber Response Pharmacy : Accepted Pharmacy Prescribing Physician : AP MURRY MD Pharmacy Additional Information : MD called to ask what dose of tamiflu patient should have and she has chronic renail failure. CrCl calculated at 50ml/min (ABW). Rec'd 30mg BID which is what provider ordered MELA QUINONEZ - 08/16/2014 15:34 STATION ENGINEER Source: [facility] Document Id: [id number] STATION ENGINEER!9 documented in this encounter Nursing Notes Mally Rutledge RBereket - 08/17/2014 5:41 PM CST end of shift update Patient showered today. Denies nausea today. Loose stools continue (x4) with Immodium given times 1in mid afternoon. Occasional loose cough. Max temp. 38.7 at 1700. Potassium recheck result is 3.4. Discharge pending MD evaluation of potassium level. Electronically Signed By: MALLY RUTLEDGE RN On: 08/17/2014 05:45 PM Source: [facility] InPlace Document Id: [id number] ION ENGINEER Mally Rutledge R.N. - 08/17/2014 5:01 PM CST Cardiac Monitoring Document Has Been Updated Cardiac Monitoring Entered On: 08/17/2014 17:15 STATION ENGINEER Performed On: 08/17/2014 17:01 STATION ENGINEER by MALLY RUTLEDGE RN Cardiac Monitoring Monitoring Lead : II Monitoring Lead Hair Or Beauty Salon Assistant : Other: continued Atrial Rate : 85 bpm Atrial Rhythm : Regular Ventricular Rate : 85 bpm Ventricular Rhythm : Regular NC Interval : 0.14 P to QRS Ratio : 1:1 QRS Duration : 0.06 second(s) QT Interval : 0.36 second(s) NC Consistency : Consistent QRS Consistency : Consistent ST Segment : Depressed Ectopy Frequency : Rare (1-3/min) Ectopic Pattern : Couplets Ectopy Description Hair Or Beauty Salon Assistant : Multifocal Cardiac Rhythm Tech : Sinus rhythm, [facility] MALLY RUTLEDGE RN - 08/17/2014 17:16 STATION ENGINEER Source: [facility] Document Id: [id number] STATION ENGINEER!19 ION ENGINEER Mally Rutledge R.N. - 08/17/2014 12:51 PM CST Cardiac Monitoring Cardiac Monitoring Entered On: 08/17/2014 13:39 STATION ENGINEER Performed On: 08/17/2014 12:51 STATION ENGINEER by MALLY RUTLEDGE RN Cardiac Monitoring Monitoring Lead : II Monitoring Lead Hair Or Beauty Salon Assistant : Other: continued Atrial Rate : 102 bpm Atrial Rhythm : Regular Ventricular Rate : 102 bpm Ventricular Rhythm : Regular NC Interval : 0.14 P to QRS Ratio : 1:1 QRS Duration : 0.06 second(s) NC Consistency : Consistent QRS Consistency : Consistent ST Segment : Depressed Ectopy Frequency : None Cardiac Rhythm Tech : Sinus tachycardia MALLY RUTLEDGE RN - 08/17/2014 13:38 STATION ENGINEER Source: [facility] Document Id: [id number] STATION ENGINEER!16 ION ENGINEER Mally Rutledge R.N. - 08/17/2014 8:29 AM CST Cardiac Monitoring Cardiac Monitoring Entered On: 08/17/2014 13:36 STATION ENGINEER Performed On: 08/17/2014 8:29 STATION ENGINEER by MALLY RUTLEDGE RN Cardiac Monitoring Monitoring Lead : II Monitoring Lead Hair Or Beauty Salon Assistant : Other: continued Atrial Rate : 63 bpm Atrial Rhythm : Regular Ventricular Rate : 63 bpm Ventricular Rhythm : Regular NC Interval : 0.12 P to QRS Ratio : 1:1 QRS Duration : 0.06 second(s) QT Interval : 0.41 second(s) NC Consistency : Consistent QRS Consistency : Consistent ST Segment : Depressed Ectopy Frequency : None Cardiac Rhythm Tech : Sinus rhythm MALLY RUTLEDGE RN - 08/17/2014 13:35 STATION ENGINEER Source: [facility] Document Id: [id number] STATION ENGINEER!17 ION ENGINEER Benny Ding R.N. - 08/17/2014 6:11 AM CST potassium replacement Pt potassium back at 3.2. Per protocol 6 more bumps to be given. Patient does not wish to have anymore replacement, stating her potassium is typically around 3.2 and she would prefer to continue replacement at home and follow-up at the clinic. Will discuss this with derik CUMMINS this AM. Electronically Signed By: BENNY DING RN On: 08/17/2014 06:13 AM Source: [facility] Document Id: [id number] ION ENGINEER Benny Ding R.N. - 08/17/2014 5:28 AM CST Cardiac Monitoring Cardiac Monitoring Entered On: 08/17/2014 5:29 STATION ENGINEER Performed On: 08/17/2014 5:28 STATION ENGINEER by BENNY DING RN Cardiac Monitoring Monitoring Lead : II Atrial Rate : 73 bpm Atrial Rhythm : Regular Ventricular Rate : 73 bpm Ventricular Rhythm : Regular NC Interval : 0.15 P to QRS Ratio : 1:1 QRS Duration : 0.06 second(s) QT Interval : 0.39 second(s) NC Consistency : Consistent QRS Consistency : Consistent ST Segment : Isoelectric Ectopy Frequency : None Cardiac Rhythm Tech : Sinus rhythm BENNY DING RN - 08/17/2014 5:28 STATION ENGINEER Source: [facility] Document Id: [id number] STATION ENGINEER!16 ION ENGINEER Benny Ding R.N. - 08/16/2014 8:17 PM CST PRN Response PRN Response Entered On: 08/16/2014 21:35 STATION ENGINEER Performed On: 08/16/2014 20:17 STATION ENGINEER by BENNY DING RN PRN Medication Effectiveness Evaluation PRN Medication Effective : No BENNY DING RN - 08/16/2014 21:35 STATION ENGINEER Source: [facility] Document Id: [id number] STATION ENGINEER!3 ION ENGINEER Elgin Suárez R.N. - 08/16/2014 5:40 PM CST Cardiac Monitoring Cardiac Monitoring Entered On: 08/16/2014 18:04 STATION ENGINEER Performed On: 08/16/2014 17:40 STATION ENGINEER by ELGIN SUÁREZ RN Cardiac Monitoring Monitoring Lead : II, V1/MCL1 Atrial Rate : 77 bpm Atrial Rhythm : Regular Ventricular Rate : 77 bpm Ventricular Rhythm : Regular NC Interval : .15 P to QRS Ratio : 1:1 QRS Duration : 0.06 second(s) QT Interval : 0.50 second(s) NC Consistency : Consistent QRS Consistency : Consistent ST Segment : Depressed Ectopy Frequency : None Cardiac Rhythm Tech : Sinus rhythm, Other: Prolonged QT interval ELGIN SUÁREZ RN - 08/16/2014 18:02 STATION ENGINEER Source: [facility] Document Id: [id number] STATION ENGINEER!16 ION ENGINEER Elgin Suárez R.N. - 08/16/2014 3:23 PM CST Pneumonia Immunization Assessment Pneumonia Immunization Assessment Entered On: 08/16/2014 15:23 STATION ENGINEER Performed On: 08/16/2014 15:23 STATION ENGINEER by ELGIN SUÁREZ RN Pneumonia Protocol Pneumococcal Vaccine Exclusions : Patient has none of the below exclusions Pneumococcal Vaccine Age Group : Age 5 to 64 Pneumococcal Criteria 5 to 64 : Patient has none of the below criteria, vaccine is not indicated Pneumococcal Vaccine Candidate : No - Patient does not meet the criteria ELGIN SUÁREZ RN - 08/16/2014 15:23 STATION ENGINEER Source: [facility] Document Id: [id number] STATION ENGINEER!6 ION ENGINEER documented in this encounter Miscellaneous Notes Miscellaneous - Mally Rutledge R.N. - 08/17/2014 6:44 PM CST Valuables/Belongings Valuables/Belongings Entered On: 08/17/2014 18:45 STATION ENGINEER Performed On: 08/17/2014 18:44 STATION ENGINEER by MALLY RUTLEDGE RN Valuables/Belongings Valuables/Belongings Grid Valuables with Patient Clothes, Patient Valuables : Jacket, Shirt, Shoes, Other: duffel bag Electronic Devices : Cell phone, Other: jerald, cell phone product management intern Jewelry : Earrings, Rings Monetary Items : Purse MALLY RUTLEDGE RN - 08/17/2014 18:44 STATION ENGINEER Belongings Sent Home With : Daughter Home Medication Disposition : Sent home with family MALLY RUTLEDGE RN - 08/17/2014 18:44 STATION ENGINEER Source: [facility] Document Id: [id number] STATION ENGINEER!10 ION ENGINEER Miscellaneous - Mally Rutledge R.N. - 08/17/2014 6:22 PM CST Hospital Patient Education The following Patient Education Materials have been given to the patient: Patient Education Materials: Ambulatory DIET, Vomiting or Diarrhea [6yr-Adult] LACERATION, Extrem (suture, staple or tape) Ambulatory Diet For Vomiting Or Diarrhea [6 Yr-Adult] Once the vomiting stops, then... During The First 12-24 Hours follow the diet below: ?? BEVERAGES: Plain water, sport drinks like Gatorade, soft drinks without caffeine; mineral water (plain or flavored); clear fruit juices, decaffeinated tea and coffee. ?? SOUPS: Clear broth, consomm??, and bouillon ?? DESSERTS: Plain gelatin (Jell-O), popsicles and fruit juice bars. As you feel better, you may add6-8 oz of yogurt per day. During The Next 24 Hours you may add the following to the above: ?? Hot cereal, plain toast, bread, rolls, crackers ?? Plain noodles, rice, mashed potatoes, chicken noodle or rice soup ?? Unsweetened canned fruit (avoid pineapple), bananas Limit fat intake to less than 15 grams per day by avoiding margarine, butter, oils, mayonnaise, sauces, gravies, fried foods, peanut butter, meat, poultry, and fish. Limit fiber; avoid raw or cooked vegetables, fresh fruits (except bananas), and bran cereals. Limit caffeine and chocolate. No spices or seasonings except salt. During The Next 24 Hours Gradually resume a normal diet, as you feel better and your symptoms lessen. ?? [id number] [facility], [address] [place] [address], [place] [address]. All rights reserved. This information is not intended as a substitute for professional medical care. Always follow your healthcare professional's instructions. Laceration, Extremity (Sutures, Estevan, Or Tape) A laceration is a cut through the skin. This will usually require stitches (sutures) or estevan if it is deep. Minor cuts may be treated with surgical tape closures. Home care The following guidelines will help you care for your laceration at home: ?? Keep the wound clean and dry. If a bandage was applied and it becomes wet or dirty, replace it. Otherwise, leave it in place for the first 24 hours, then change it once a day or as directed. ?? If stitches or estevan were used, clean the wound daily: ?? After removing the bandage, wash the area with soap and water. Use a wet cotton swab to loosen and remove any blood or crust that forms. ?? After cleaning, keep the wound clean and dry. Talk with your doctor before applying any antibiotic ointment to the wound. Reapply the bandage. ?? You may remove the bandage to shower as usual after the first 24 hours, but do not soak the area in water (no swimming) until the stitches or estevan are removed. ?? If surgical tape closures were used, keep the area clean and dry. If it becomes wet, blot it dry with a towel. ?? The doctor may prescribe an antibiotic cream or ointment to prevent infection. Do not stop takingthis medication until you have finished the prescribed course or the doctor tells you to stop. The doctor may also prescribe medications for pain. Follow the doctors instructions for taking these medica tions. If you have chronic liver or kidney disease or ever had a stomach ulcer or GI bleeding, talk with your doctor before using these medicines. Follow-up care Follow up with your health care provider. Most skin wounds heal within ten days. However, an infection may sometimes occur despite proper treatment. Therefore, check the wound daily for the signs of infection listed below. Stitches and estevan should be removed within 7-14 days. If surgical tape closures were used, you may remove them after 10 days, if they have not fallen off by then. Notify your doctor if you notice persistent numbness or weakness in the injured extremity. (Note: A radiologist will review any X-rays that were taken. We will notify you of any new findings that may affect your care.) When to seek medical care Get prompt medical attention if any of these occur: ?? Increasing pain in the wound ?? Redness, swelling, or pus coming from the wound ?? Fever of 100.4??F (38??C) or higher, or as directed by your health care provider ?? If stitches or estevan come apart or fall out before your next appointment ?? If the surgical tape closures fall off within seven days, or the wound edges re-open ?? Bleeding not controlled by direct pressure ?? [phone] [facility], [address] [place] [address], [place] [address]. All rights reserved. This information is not intended as a substitute for professional medical care. Always follow your healthcare professional's instructions. This document has images extracted. Please consider using [employer] for all your patient education needs. Source: [facility] InPlace Document Id: [id number] ION ENGINEER Miscellaneous - Mally Rutledge R.N. - 08/17/2014 4:29 PM CST Adult Activities of Daily Living Adult Activities of Daily Living Entered On: 08/17/2014 16:30 STATION ENGINEER Performed On: 08/17/2014 16:29 STATION ENGINEER by MALLY RUTLEDGE RN ADLs I Patient Position : Sitting in bed Activity Status ADL : Ambulating in room Activity Assistance : Independent Assistive Device : None Repositioning/Pressure Reducing Devices : Pillow Pressure Reducing Device For Bed : Foam Range of Motion LUE : Active Range of Motion RUE : Active Range of Motion LLE : Active Range of Motion RLE : Active Ambulation Distance : 20 m(Converted to: 65 ft 7 inch(es), 2,000 cm) Ambulation Patient Effort : Good MALLY RUTLEDGE RN - 08/17/2014 16:29 STATION ENGINEER ADLs II Bowel Movement Last Date : 08/16/2014 STATION ENGINEER Standard Safety : Call device within reach, ID band check, Non-Slip footwear, Rounds every 1 hour, Upper/Half-length side-rails up, Wheels locked MALLY RUTLEDGE RN - 08/17/2014 16:29 STATION ENGINEER Source: [facility] Document Id: [id number] STATION ENGINEER!17 ION ENGINEER Lisacellwashington - Tena Wall - 08/17/2014 1:29 PM CST Adult Activities of Daily Living Adult Activities of Daily Living Entered On: 08/17/2014 13:30 STATION ENGINEER Performed On: 08/17/2014 13:29 STATION ENGINEER by TENA WALL ADLs II Hygiene Assistance Grid Shower : Minimum assistance TENA WALL - 08/17/2014 13:29 STATION ENGINEER Bowel Movement Last Date : 08/16/2014 STATION ENGINEER Standard Safety : Call device within reach, Non-Slip footwear, Rounds every 1 hour, Upper/Half-length side-rails up TENA WALL - 08/17/2014 13:29 STATION ENGINEER Source: [facility] POWERCHART Document Id: [id number] STATION ENGINEER!6 ION ENGINEER Miscellaneous - Melanie Monte LPopeyeG.S.WPopeye - 08/17/2014 10:21 AM STATION ENGINEER Team Meeting Notes Team Meeting Notes Entered On: 08/17/2014 10:23 STATION ENGINEER Performed On: 08/17/2014 10:21 STATION ENGINEER by MELANIE MONTE Team Notes Team Meeting Grid Discipline : Roving Sizer, Nurse, Occupational Therapist, Physical Therapist, Salon Supervisor Topics : Medication, Plan of care Goal of the Day : Pt. admitted following a fall at home. Positive for influenze A. Low potassium, currently on IV potassium but will switch to oral. From home and will return home on d/c. MELANIE MONTE - 08/17/2014 10:21 STATION ENGINEER Source: [facility] [employer]ART Document Id: [id number] STATION ENGINEER!7 ION ENGINEER Miscellaneous - Mally Rutledge RPopeyeNPopeye - 08/17/2014 8:52 AM CST Adult Ongoing Assessment Adult Ongoing Assessment Entered On: 08/17/2014 14:02 STATION ENGINEER Performed On: 08/17/2014 8:52 STATION ENGINEER by MALLY RUTLEDGE RN Respiratory Respiratory Patient Stated Symptoms : None Respirations : Unlabored Respiratory Pattern : Regular All Lobes Breath Sounds : Clear Cough : Loose, Occasional Sputum Amount : Scant Sputum Color : Other: patient does not visualize Suction : None Airway : Patent MALLY RUTLEDGE RN - 08/17/2014 13:52 STATION ENGINEER Cardiovascular CV Patient Stated Symptoms : None Heart Rhythm : Regular Heart Sounds ICU : S1S2 Antiembolism Device Yes/No : No Nail Bed Color : [place] Capillary Refill : Less than 2 seconds Edema Assessment : Yes Monitored Rhythm : Yes Pacer : No CADENRAZIAMALLY RN - 08/17/2014 13:52 STATION ENGINEER Pulses Grid Radial Pulse, Left : 2+ Normal Radial Pulse, Right : 2+ Normal Dorsalis Pedis Pulse, Left : 2+ Normal Dorsalis Pedis Pulse, Right : 2+ Normal CADENRAZIAMALLY RN - 08/17/2014 13:52 STATION ENGINEER Skin Color : [place] Skin Description : Normal Skin Temperature : Warm Activity Tolerance : Without distress AAMIRMALLY RN - 08/17/2014 13:52 STATION ENGINEER Edema Details Edema Detailed Grid Other Edema Bilateral : 1+ trace/2mm, Non-Pitting (Comment: at sock line [MALLY RUTLEDGE RN - 08/17/2014 13:52 STATION ENGINEER] ) Comments (Comment: at sock line [MALLY RUTLEDGE RN 08/17/2014 13:52 STATION ENGINEER] ) MALLY RUTLEDGE RN 08/17/2014 13:52 STATION ENGINEER Neurological Neuro Patient Stated Symptoms : None Orientation : Oriented x 3 Level of Consciousness : Alert Gait : Steady Swallowing Difficulty/Aspiration Risk : None CADENRAZIAMALLY RN - 08/17/2014 13:52 STATION ENGINEER Hayti Coma Eye Opening Response Bambi : Spontaneously Best Verbal Response Bambi : Oriented Best Motor Response Bambi : Obeys simple commands Bambi Coma Score : 15 AAMIRMALLY RN 08/17/2014 13:52 STATION ENGINEER Oral Assessment Lips : Smooth, pink, moist, intact Gingiva : [place], smooth, moist, intact Tongue : Other: geographic tongue Teeth : Clean, no debris Saliva : Minimal saliva MALLY RUTLEDGE RN - 08/17/2014 13:52 STATION ENGINEER Psycho/Emotional Affect/Behavior : Calm, Cooperative, Appropriate Pain Symptoms : No MALLY RUTLEDGE RN 08/17/2014 13:52 STATION ENGINEER Coping Grid Identifies effective strategies : Yes Uses effective strategies : Yes Reports increase in psychological comfort : Yes Indicates sense of control : Yes Stressors perceived within control : Yes Stable mood with appropriate affect : Yes Behaviors indicate use of coping mechanism : Yes Family supportive and involved in care : Yes Values/Beliefs incorporated appropriately : Yes MALLY RUTLEDGE RN 08/17/2014 13:52 STATION ENGINEER Safety Grid Vision, Hearing, Mobility Adequate to Meet Safety Needs : Yes MALLY RUTLEDGE RN - 08/17/2014 13:52 STATION ENGINEER Gastrointestinal GI Patient Stated Symptoms : None Abdomen Description : Rounded Abdomen Palpation : Soft Bowel Movement Last Date : 08/17/2014 STATION ENGINEER Bowel Sounds All Quadrants : Present Stool Color : Brown Stool Description : Semi-Formed Stool Amount : Large MALLY RUTLEDGE RN - 08/17/2014 13:52 STATION ENGINEER Nutrition Eating Difficulties : None Appetite : Good Nutrition Risk Factors by History Adult : None MALLY RUTLEDGE RN - 08/17/2014 13:52 STATION ENGINEER Genitourinary Patient Stated Symptoms : None Urinary Elimination : Voiding, no difficulties Urine Color : Yellow Urine Description : Clear Urine Odor : Odorless MALLY RUTLEDGE RN - 08/17/2014 13:52 STATION ENGINEER Integumentary Integumentary Patient Stated Symptoms : None Skin Turgor : Elastic Skin Integrity : Not intact Mucous Membrane Color : [place] Mucous Membrane Description : Moist Skin Color : [place] Skin Description : Normal Skin Temperature : Warm MALLY RUTLEDGE RN - 08/17/2014 13:52 STATION ENGINEER Incision/Wound Incision/Wound Care Grid Activity : Assessed Type : Laceration Location : Other: posterior armpit Laterality : Right Description : Stapled, Other: bruised Color : Red, Purple Drainage : None Drainage Amount : None Surrounding Tissue : Bruised Cleansing/ Irrigation : Other: showered Wound Dressing : Open to air MALLY RUTLEDGE RN - 08/17/2014 13:52 STATION ENGINEER Mart Sensory Perception Mart : No impairment Moisture Mart : Rarely moist Activity Mart : Walks frequently Mobility Mart : No limitations Nutrition Mart : Adequate Friction and Shear Mart : No apparent problem Mart Score : 22 MALLY RUTLEDGE RN - 08/17/2014 13:52 STATION ENGINEER Musculoskeletal Musculoskeletal Patient Stated Symptoms : None Activity Tolerance : Without distress MALLY RUTLEDGE RN - 08/17/2014 13:52 STATION ENGINEER Peripheral IV Peripheral IV Assess/Intervention Grid Peripheral IV #1 IV Activity : Assessment Date of Insertion : 08/16/2014 STATION ENGINEER IV Site : Antecubital Laterality : Left Catheter Size : 20 Catheter Type : Over the needle Site Condition : No complications Drainage Description : None Primary Tubing Changed : 08/16/2014 STATION ENGINEER Secondary Tubing Changed : 08/16/2014 STATION ENGINEER Dressing/ Activity : Dry, Intact, Transparent Flow/ Patency : No complications MALLY RUTLEDGE RN - 08/17/2014 13:52 STATION ENGINEER Hendrich II Fall Risk Confusion/Disorientation Hendrich : No Depression Fall Risk Hendrich : No Altered Elimination Fall Risk Hendrich : No Dizziness/Vertigo Fall Risk Hendrich : No Gender, Male Fall Risk Hendrich : No Prescribed Antiepileptics Hendrich : No Prescribed Benzodiazepines Hendrich : No Rising From Chair Fall Risk Hendrich : Able to rise in a single movement, no loss of balance with steps Fall Risk Score Hendrich II : 0 MALLY RUTLEDGE RN - 08/17/2014 13:52 STATION ENGINEER Safe Patient Handling Safe Pt Handling Independent : Yes - No equipment needed Safe Pt Handling Equipment Rec : No Equipment Needed Repositioning Device Recommended : No MALLY RUTLEDGE RN - 08/17/2014 13:52 STATION ENGINEER Education General Patient Education [employer] Topics : Activity limitations/expectations, Infection Control Processes, Plan of care, Safety, fall,Turn/Cough/Deep breathing Individuals Taught : Patient Barriers to Learning : None evident Teaching Method : Explanation Teaching Evaluation : Verbalizes understanding MALLY RUTLEDGE RN - 08/17/2014 13:52 STATION ENGINEER [facility] Document Id: [id number] STATION ENGINEER!156 ION ENGINEER Miscellaneous - Benny Ding R.N. - 08/16/2014 11:59 PM CST Adult Activities of Daily Living Adult Activities of Daily Living Entered On: 08/17/2014 0:00 STATION ENGINEER Performed On: 08/16/2014 23:59 STATION ENGINEER by BENNY DING RN ADLs I Patient Position : Head of bed flat Activity Status ADL : Ambulating in room, Up with assistance Activity Assistance : Stand-by assistance Assistive Device : None Ambulation Patient Effort : Good BENNY DING RN - 08/16/2014 23:59 STATION ENGINEER ADLs II Hygiene Assistance Grid Back Rub : Maximum assistance Bed Bath : Minimum assistance Hair Care : Independent Oral Care : Independent (Comment: set-up assist only [BENNY DING RN - 08/16/2014 23:59 STATION ENGINEER] ) Elimination Assistance Offered Q2H : Offered/Performed Bowel Movement Last Date : 08/16/2014 STATION ENGINEER Standard Safety : Bed in low position, Call device within reach, ID band check, Night light, Non-Slip footwear, Rounds every 1 hour, Upper/Half-length side- rails up BENNY DING RN - 08/16/2014 23:59 STATION ENGINEER ADLs Adult Nutrition Diet Type : Diet -- 08/16/14 15:23:00 STATION ENGINEER, Renal Feeding Assistance : Independent BENNY DING RN - 08/16/2014 23:59 STATION ENGINEER Source: [facility] POWERCHART Document Id: [id number] STATION ENGINEER!19 ION ENGINEER Miscellaneous - Benny Ding R.N. - 08/16/2014 9:49 PM CST Adult Ongoing Assessment Adult Ongoing Assessment Entered On: 08/16/2014 23:33 STATION ENGINEER Performed On: 08/16/2014 21:49 STATION ENGINEER by BENNY DING RN Respiratory Respiratory Patient Stated Symptoms : Shortness of breath Respirations : Unlabored Respiratory Pattern : Regular Cough and Deep Breathe : Done Cough : Dry Sputum Amount : None Suction : None Airway : Patent Respiratory Detailed Assessment : Yes BENNY DING RN - 08/16/2014 22:49 STATION ENGINEER Resp Detailed Breath Sounds Detailed Assessment Grid BUL : Diminished BLL : Coarse crackles BENNY DING RN - 08/16/2014 22:49 STATION ENGINEER Cardiovascular CV Patient Stated Symptoms : None Heart Rhythm : Regular Heart Sounds ICU : S1S2 Antiembolism Device Yes/No : No Nail Bed Color : [place] Capillary Refill : Less than 2 seconds Edema Assessment : No Monitored Rhythm : Yes BENNY DING RN - 08/16/2014 22:49 STATION ENGINEER Pulses Grid Radial Pulse, Left : 2+ Normal Radial Pulse, Right : 2+ Normal Dorsalis Pedis Pulse, Left : 2+ Normal Dorsalis Pedis Pulse, Right : 2+ Normal BENNY DING RN - 08/16/2014 22:49 STATION ENGINEER Skin Color : Normal for ethnicity Skin Description : Normal Skin Temperature : Warm Activity Tolerance : Minimal distress BENNY DING RN - 08/16/2014 22:49 STATION ENGINEER Cardiac Rhythm Techs Monitoring Lead : II, V1/MCL1 Atrial Rate : 78 bpm Atrial Rhythm : Regular Ventricular Rate : 78 bpm Ventricular Rhythm : Regular NC Interval : 0.13 P to QRS Ratio : 1:1 QRS Duration : 0.11 second(s) NC Consistency : Consistent QRS Consistency : Consistent ST Segment : Depressed (Comment: depressed 1 square in lead II [BENNY DING RN - 08/16/2014 22:49 STATION ENGINEER] ) Ectopy Frequency : None Cardiac Rhythm : Sinus rhythm BENNY DING RN - 08/16/2014 22:49 STATION ENGINEER Neurological Neuro Patient Stated Symptoms : None Orientation : Oriented x 3 Level of Consciousness : Alert Gait : Steady Swallowing Difficulty/Aspiration Risk : None Last Well Time Known : Not applicable BENNY DING RN - 08/16/2014 22:49 STATION ENGINEER Psycho/Emotional Affect/Behavior : Calm, Cooperative, Appropriate Pain Symptoms : Yes EBNNY DING - 08/16/2014 22:49 STATION ENGINEER Safety Grid Vision, Hearing, Mobility Adequate to Meet Safety Needs : Yes BENNY DING RN - 08/16/2014 22:49 STATION ENGINEER Pain Pain Assessment Grid Pain 1 Location : Other: axilla Laterality : Right Intensity : 4 Quality : Aching, Burning Aggravating Factors : Movement BENNY DING RN - 08/16/2014 22:49 STATION ENGINEER Gastrointestinal GI Patient Stated Symptoms : Diarrhea, Incontinence Abdomen Description : Symmetric Abdomen Palpation : Non-Tender, Soft Bowel Movement Last Date : 08/16/2014 STATION ENGINEER Bowel Sounds All Quadrants : Present Stool Color : Green Stool Description : Loose Stool Amount : Moderate BENNY DING RN - 08/16/2014 22:49 STATION ENGINEER Nutrition Appetite : Fair BENNY DING RN - 08/16/2014 22:49 STATION ENGINEER Genitourinary Patient Stated Symptoms : None Urinary Elimination : Voiding, no difficulties Urine Color : Yellow Urine Description : Concentrated BENNY DING RN - 08/16/2014 22:49 STATION ENGINEER Integumentary Skin Integrity : Not intact BENNY DING RN - 08/16/2014 22:49 STATION ENGINEER Incision/Wound Incision/Wound Care Grid Activity : Assessed, Dressing intact Type : Laceration Location : Upper arm Laterality : Right, Lateral, Posterior Description : Stapled BENNY DING RN - 08/16/2014 22:49 STATION ENGINEER Peripheral IV Peripheral IV Assess/Intervention Grid Peripheral IV #1 IV Activity : Assessment Date of Insertion : 08/16/2014 STATION ENGINEER IV Site : Antecubital Laterality : Left Catheter Size : 20 Catheter Type : Over the needle Site Condition : No complications Primary Tubing Changed : 08/16/2014 STATION ENGINEER Secondary Tubing Changed : 08/16/2014 STATION ENGINEER Flow/ Patency : No complications BENNY DING RN - 08/16/2014 22:49 STATION ENGINEER Hendrich II Fall Risk Confusion/Disorientation Hendrich : No Depression Fall Risk Hendrich : No Altered Elimination Fall Risk Hendrich : Yes Dizziness/Vertigo Fall Risk Hendrich : Yes Gender, Male Fall Risk Hendrich : No Prescribed Antiepileptics Hendrich : No Prescribed Benzodiazepines Hendrich : No Rising From Chair Fall Risk Hendrich : Able to rise in a single movement, no loss of balance with steps Fall Risk Score Hendrich II : 2 BENNY DING RN - 08/16/2014 22:49 STATION ENGINEER Safe Patient Handling Safe Pt Handling Independent : Yes - No equipment needed Safe Pt Handling Equipment Rec : No Equipment Needed Repositioning Device Recommended : No BENNY DING RN - 08/16/2014 22:49 STATION ENGINEER Education General Patient Education Powergrid Topics : Diagnostic results, Disease process, Medication dosage, route, scheduling, Medication generic/brand names, purpose, action, Pain Management, Plan of care, Safety, fall, Thermometer use, Turn/Cough/Deep breathing Individuals Taught : Patient Barriers to Learning : None evident Teaching Method : Explanation Teaching Evaluation : Verbalizes understanding BENNY DING RN - 08/16/2014 22:49 STATION ENGINEER [facility] POWER[facility] Document Id: [id number] STATION ENGINEER!128 ION ENGINEER Miscellaneous - Elgin Suárez R.N. - 08/16/2014 6:16 PM CST Adult Activities of Daily Living Adult Activities of Daily Living Entered On: 08/16/2014 18:18 STATION ENGINEER Performed On: 08/16/2014 18:16 STATION ENGINEER by ELGIN SUÁREZ RN ADLs I Patient Position : Other: Up to bathroom Activity Status ADL : Up with assistance Activity Assistance : Stand-by assistance ELGIN SUÁREZ RN - 08/16/2014 18:16 STATION ENGINEER ADLs II Bowel Movement Last Date : 08/16/2014 STATION ENGINEER Standard Safety : Bed in low position, Call device within reach, ID band check, Non-Slip footwear, Rounds every 1 hour, Upper/Half-length side-rails up, Wheels locked ELGIN SUÁREZ RN - 08/16/2014 18:16 STATION ENGINEER I&O Oral Intake : 680 mL ELGIN SUÁREZ RN - 08/16/2014 18:44 STATION ENGINEER Urine Voided : 250 mL ELGIN SUÁREZ RN - 08/16/2014 18:16 STATION ENGINEER ADLs Adult Nutrition Feeding Assistance : Independent ELGIN SUÁREZ RN - 08/16/2014 18:44 STATION ENGINEER Diet Type : Diet -- 08/16/14 15:23:00 STATION ENGINEER, Renal Dinner : 20 % ELGIN SUÁREZ RN - 08/16/2014 18:16 STATION ENGINEER Source: [facility] InPlace Document Id: [id number] STATION ENGINEER!15 ION ENGINEER Miscellaneous - Elgin Suárez R.N. - 08/16/2014 6:00 PM CST Focused Assessment - Genitourinary Focused Assessment - Genitourinary Entered On: 08/16/2014 19:30 STATION ENGINEER Performed On: 08/16/2014 18:00 STATION ENGINEER by ELGIN SUÁREZ RN Genitourinary Patient Stated Symptoms : Incontinence Urinary Elimination : Voiding with difficulties Voiding Difficulties : Stress incontinence Urine Color : Yellow, Dark Urine Description : Clear, Sediment ELGIN SUÁREZ RN - 08/16/2014 19:29 STATION ENGINEER Source: [facility] InPlace Document Id: [id number] STATION ENGINEER!7 ION ENGINEER Miscellaneous - Elgin Suárez R.N. - 08/16/2014 3:58 PM CST Basic Admission Information Document Has Been Updated Basic Admission Information Entered On: 08/16/2014 16:02 STATION ENGINEER Performed On: 08/16/2014 15:58 STATION ENGINEER by ELGIN SUÁREZ RN Vital Signs Height : 167 cm(Converted to: 5 ft 6 inch(es)) ELGIN SUÁREZ RN - 08/16/2014 15:58 STATION ENGINEER Allergy Rule (As Of: 08/16/2014 16:02:16 STATION ENGINEER) Allergies (Active) NKA Estimated Onset Date: Unspecified ; Created By: REYNOLD PADILLA RN; Reaction Status: Active ; Category: Drug ; Substance: NKA ; Type: Allergy ; Updated By: REYNOLD PADILLA RN; Reviewed Date: 08/16/2014 15:24 STATION ENGINEER Valuables/Belongings Valuables/Belongings Grid Valuables at Bedside Clothes, Patient Valuables : Pants, Shirt, Shoes, Other: Duffel bag (Comment: Sweatshirt [ELGIN SUÁREZ RN - 08/16/2014 15:58 STATION ENGINEER] ) Electronic Devices : Cell phone, Other: jerald, cell phone product management intern Jewelry : Earrings, Rings (Comment: 1 gold colored ring left hand, 2 pairs earring in each ear [ELGIN SUÁREZ RN - 08/16/2014 15:58 STATION ENGINEER] ) Monetary Items : Purse ELGIN SUÁREZ RN - 08/16/2014 15:58 STATION ENGINEER Belongings Sent Home With : Daughter Home Medication Disposition : Sent home with family ELGIN SUÁREZ RN - 08/16/2014 15:58 STATION ENGINEER Source: [facility] InPlace Document Id: [id number] STATION ENGINEER!12 ION ENGINEER Miscellaneous - Elgin Suárez R.N. - 08/16/2014 3:55 PM CST Isolation Precautions Isolation Precautions Entered On: 08/16/2014 15:56 STATION ENGINEER Performed On: 08/16/2014 15:55 STATION ENGINEER by ELGIN SUÁREZ RN Initiation Isolation Precautions Date/TIme : 08/16/2014 15:10 STATION ENGINEER Reason for Isolation - Organism : Other: influenza A Type of Isolation : Droplet Precautions ELGIN SUÁREZ RN - 08/16/2014 15:55 STATION ENGINEER Education Isolation Precautions Education Grid Infection Prevention Education Topics : Hand Hygiene, Precautions, Droplet Individuals Taught : Patient, Daughter Barriers to Learning : None evident Teaching Method : Explanation Teaching Evaluation Infection Prevention : Verbalizes understanding ELGIN SUÁREZ RN - 08/16/2014 15:55 STATION ENGINEER Source: [facility] InPlace Document Id: [id number] STATION ENGINEER!13 ION ENGINEER Miscellaneous - Elgin Suárez R.N. - 08/16/2014 3:28 PM CST Adult Admission Assessment Adult Admission Assessment Entered On: 08/16/2014 15:40 STATION ENGINEER Performed On: 08/16/2014 15:28 STATION ENGINEER by ELGIN SUÁREZ RN Respiratory Respiratory Patient Stated Symptoms : Shortness of breath Respirations : Unlabored Respiratory Pattern : Regular All Lobes Breath Sounds : Clear Cough and Deep Breathe : Done Cough : Loose, Occasional Sputum Amount : None Airway : Patent ELGIN SUÁREZ RN - 08/16/2014 15:28 STATION ENGINEER Cardiovascular Monitored Rhythm : Yes ELGIN SUÁREZ RN - 08/16/2014 18:00 STATION ENGINEER CV Patient Stated Symptoms : None Heart Rhythm : Regular Heart Sounds ICU : S1S2 Antiembolism Device Yes/No : No Nail Bed Color : [place] Capillary Refill : Less than 2 seconds Edema Assessment : Yes ELGIN SUÁREZ RN - 08/16/2014 15:28 STATION ENGINEER Pulses Grid Radial Pulse, Left : 2+ Normal Radial Pulse, Right : 2+ Normal Dorsalis Pedis Pulse, Left : 2+ Normal Dorsalis Pedis Pulse, Right : 2+ Normal ELGIN SUÁREZ RN - 08/16/2014 15:28 STATION ENGINEER Skin Color : Normal for ethnicity Skin Description : Normal Skin Temperature : Warm Activity Tolerance : Without distress ELGIN SUÁREZ RN - 08/16/2014 15:28 STATION ENGINEER Edema Details Edema Detailed Grid Pretibial Edema Ankle Edema Pedal Edema Bilateral : 1+ trace/2mm, Pitting 1+ trace/2mm, Pitting 1+ trace/2mm, Pitting ELGIN SUÁREZ RN - 08/16/2014 15:28 STATION ENGINEER ELGIN SUÁREZ RN - 08/16/2014 15:28 STATION ENGINEER ELGIN SUÁREZ RN - 08/16/2014 15:28 STATION ENGINEER Cardiac Rhythm Techs Monitoring Lead : II, V1/MCL1 Atrial Rate : 62 bpm Atrial Rhythm : Regular Ventricular Rate : 62 bpm Ventricular Rhythm : Regular NC Interval : .13 P to QRS Ratio : 1:1 QRS Duration : 0.08 second(s) QT Interval : 0.46 second(s) NC Consistency : Consistent QRS Consistency : Consistent ST Segment : Depressed Ectopy Frequency : None Cardiac Rhythm : Sinus rhythm ELGIN SUÁREZ RN - 08/16/2014 18:00 STATION ENGINEER Neurological Neuro Patient Stated Symptoms : None Orientation : Oriented x 3 Level of Consciousness : Alert Gait : Steady Last Well Time Known : Not applicable ELGIN SUÁREZ RN - 08/16/2014 15:28 STATION ENGINEER Hayti Coma Eye Opening Response Hayti : Spontaneously Best Verbal Response Hayti : Oriented Best Motor Response Bambi : Obeys simple commands Bambi Coma Score : 15 ELGIN SUÁREZ RN - 08/16/2014 15:28 STATION ENGINEER Oral Assessment Lips : Smooth, pink, moist, intact Gingiva : [place], smooth, moist, intact Tongue : Smooth, pink, moist, intact Teeth : Clean, no debris Saliva : Thin, watery, plentiful ELGIN SUÁREZ RN - 08/16/2014 15:28 STATION ENGINEER Psycho/Emotional Pain Symptoms : No Affect/Behavior : Calm, Cooperative, Appropriate ELGIN SUÁREZ RN - 08/16/2014 15:28 STATION ENGINEER Coping Grid Identifies effective strategies : Yes Uses effective strategies : Yes Reports increase in psychological comfort : Yes Indicates sense of control : Yes Stressors perceived within control : Yes Stable mood with appropriate affect : Yes Behaviors indicate use of coping mechanism : Yes Family supportive and involved in care : Yes Values/Beliefs incorporated appropriately : Yes ELGIN SUÁREZ RN - 08/16/2014 15:28 STATION ENGINEER Safety Grid Vision, Hearing, Mobility Adequate to Meet Safety Needs : Yes ELGIN SUÁREZ RN - 08/16/2014 15:28 STATION ENGINEER Gastrointestinal GI Patient Stated Symptoms : None Abdomen Description : Symmetric Abdomen Palpation : Non-Tender, Soft Bowel Movement Last Date : 08/16/2014 STATION ENGINEER Bowel Sounds All Quadrants : Present ELGIN SUÁREZ RN - 08/16/2014 15:28 STATION ENGINEER Genitourinary Patient Stated Symptoms : Incontinence Urinary Elimination : Voiding with difficulties Voiding Difficulties : Stress incontinence ELGIN SUÁREZ RN - 08/16/2014 15:28 STATION ENGINEER Integumentary Integumentary Patient Stated Symptoms : Other: laceration to left axilla Skin Turgor : Elastic Skin Integrity : Not intact Mucous Membrane Color : [place] Mucous Membrane Description : Moist Skin Color : Normal for ethnicity Skin Description : Normal Skin Temperature : Warm ELGIN SUÁREZ RN - 08/16/2014 15:28 STATION ENGINEER Incision/Wound Incision/Wound Care Grid Activity : Assessed, Dressing intact Type : Laceration Location : Upper arm Laterality : Right, Lateral, Posterior Description : Edges approximated, Stapled ELGIN SUÁREZ RN - 08/16/2014 18:00 STATION ENGINEER Drainage : Serosanguineous ELGIN SUÁREZ RN - 08/16/2014 18:00 STATION ENGINEER Drainage Amount : Small ELGIN SUÁREZ RN - 08/16/2014 18:00 STATION ENGINEER Surrounding Tissue : Intact, No signs or symptoms of localized infection ELGIN SUÁREZ RN - 08/16/2014 18:00 STATION ENGINEER Wound Dressing : Other: Covered by ED staff with Telfa and Kerlix ELGIN SUÁREZ RN - 08/16/2014 18:00 STATION ENGINEER Neurovascular Status : Neurovascular intact distal to injury ELGIN SUÁREZ RN - 08/16/2014 18:00 STATION ENGINEER ELGIN SUÁREZ RN - 08/16/2014 15:28 STATION ENGINEER Mart Sensory Perception Mart : No impairment Moisture Mart : Rarely moist Activity Mart : Walks occasionally Mobility Mart : Slightly limited Nutrition Mart : Adequate Friction and Shear Mart : No apparent problem Mart Score : 20 ELGIN SUÁREZ RN - 08/16/2014 15:28 STATION ENGINEER Musculoskeletal Musculoskeletal Patient Stated Symptoms : None ELGIN SUÁREZ RN - 08/16/2014 16:15 STATION ENGINEER Peripheral IV Peripheral IV Assess/Intervention Grid Peripheral IV #1 IV Activity : Assessment Date of Insertion : 08/16/2014 STATION ENGINEER IV Site : Antecubital Laterality : Left Catheter Size : 20 Catheter Type : Over the needle Site Condition : No complications Drainage Description : None Primary Tubing Changed : 08/16/2014 STATION ENGINEER Secondary Tubing Changed : 08/16/2014 STATION ENGINEER Dressing/ Activity : Dry, Intact, Transparent Flow/ Patency : No complications ELGIN SUÁREZ RN - 08/16/2014 16:15 STATION ENGINEER Hendrich II Fall Risk Confusion/Disorientation Hendrich : No Depression Fall Risk Hendrich : No Altered Elimination Fall Risk Hendrich : Yes Dizziness/Vertigo Fall Risk Hendrich : Yes Gender, Male Fall Risk Hendrich : No Prescribed Antiepileptics Hendrich : No Prescribed Benzodiazepines Hendrich : No Rising From Chair Fall Risk Hendrich : Pushes up, successful in one attempt Fall Risk Score Hendrich II : 3 ELGIN SUÁREZ RN - 08/16/2014 16:15 STATION ENGINEER Safe Patient Handling Safe Pt Handling Independent : Yes - No equipment needed Safe Pt Handling Equipment Rec : No Equipment Needed Repositioning Device Recommended : No ELGIN SUÁREZ RN - 08/16/2014 16:15 STATION ENGINEER Education General Patient Education Powergrid Topics : Medication dosage, route, scheduling, Pain Management, Plan of care, Safety, fall, Turn/Cough/Deep breathing Individuals Taught : Patient Barriers to Learning : None evident Teaching Method : Explanation Teaching Evaluation : Verbalizes understanding ELGIN SUÁREZ RN - 08/16/2014 16:15 STATION ENGINEER Source: [facility] POWERCHART Document Id: [id number] STATION ENGINEER!27 ION ENGINEER Miscellaneous - Elgin Suárez R.N. - 08/16/2014 3:24 PM CST Adult Admission History Document Has Been Updated Adult Admission History Entered On: 08/16/2014 15:28 STATION ENGINEER Performed On: 08/16/2014 15:24 STATION ENGINEER by ELGIN SUÁREZ RN General Info Preferred Name : Micaela Admitted From : Non-Health Care Facility Point of Origin Mode of Arrival : Cart Accompanied By : Alone Chief Complaint : Fall/laceration to underarm Preferred Communication Mode : Verbal Information Given By : Patient Languages : Bulgarian Have you received chemotherapy in last 48 hours? : No Is Patient Female and 13-50 no hysterectomy : No ELGIN SUÁREZ RN - 08/16/2014 15:24 STATION ENGINEER Allergy (As Of: 08/16/2014 15:28:14 STATION ENGINEER) Allergies (Active) NKA Estimated Onset Date: Unspecified ; Created By: REYNOLD PADILLA RN; Reaction Status: Active ; Category: Drug ; Substance: NKA ; Type: Allergy ; Updated By: REYNOLD PADILLA RN; Reviewed Date: 08/16/2014 15:24 STATION ENGINEER Problem List/Diagnoses (As Of: 08/16/2014 15:28:14 STATION ENGINEER) Diagnoses(Active) Hypokalemia Date: 08/16/2014 ; Diagnosis Type: Working ; Confirmation: Confirmed ; Clinical Dx: Hypokalemia ; Classification: Medical ; Clinical Service: Non- Specified ; Code: ICD-9-CM ; Probability: 0; Diagnosis Code: 276.8 Anesth/Transfusion Anesthesia/Transfusions : Prior anesthesia Transfusion Acceptable in Emergency : Yes Mandaen/Other Objections to Blood Transfusions : No ELGIN SUÁREZ RN - 08/16/2014 15:24 STATION ENGINEER ID Screen Drug Resistant Organism : No Travel Within Last 21 Days : No ELGIN SUÁREZ RN - 08/16/2014 15:24 STATION ENGINEER Nutrition Nutrition Risk Factors by History Adult : None Home Diet : Regular Feeding Ability : Complete independence Eating Difficulties : None Appetite : Good ELGIN SUÁREZ RN - 08/16/2014 15:24 STATION ENGINEER Home Environment Current Daily Living Assistance : None Living Situation : Home independently History of Falls : Last month Home Equipment : None Sensory Deficits : None Mobility Assistance Prior to Admission : Independent Current Home Treatments : None Professional Skilled Services : None Special Services and Community Resources : None ELGIN SUÁREZ RN - 08/16/2014 15:24 STATION ENGINEER Dependent Habits Recreational Drug Use Grid Drug Use : None ELGIN SUÁREZ RN - 08/16/2014 15:24 STATION ENGINEER Psychosocial Adult Domestic Abuse Concerns : None Mandaen Preference : Unknown ELGIN SUÁREZ RN - 08/16/2014 15:24 STATION ENGINEER Advance Directive Advanced Directives : No Advance Directive Additional Information : No ELGIN SUÁREZ RN - 08/16/2014 15:24 STATION ENGINEER Educ Needs Learning Style Preference Adult Grid Patient : Verbal explanation Family : Verbal explanation ELGIN SUÁREZ RN - 08/16/2014 15:24 STATION ENGINEER DC Needs Discharge To, Anticipated : Home independently Needs Assistance with Transportation : No Needs Assistance at Home Upon Discharge : No ELGIN SUÁREZ RN - 08/16/2014 15:24 STATION ENGINEER Source: [facility] POWERCHART Document Id: [id number] STATION ENGINEER!53 ION ENGINEER documented in this encounter Plan of Treatment Not on filedocumented as of this encounter Procedures Procedure Name Priority Date/Time Associated Diagnosis Comme nts POTASSIUM, S/P Routine 08/17/2014 5:00 PM Results for this STATION ENGINEER procedure are i n the results section. CBC WITHOUT Routine 08/17/2014 4:30 AM Results f or this DIFFERENTIAL, B STATION ENGINEER procedure ar e in the results section. BASIC METABOLIC Routine 08/17/2014 4:30 AM Result s for this PANEL, S/P STATION ENGINEER procedure are i n the results section. documented in this encounter Results (ABNORMAL) Potassium (08/17/2014 5:00 PM STATION ENGINEER) P athologist Signature Potassium, S 3.4 (L) 3.5 - 5.1 POWERCHART MMOLL Specimen (Source) Anatomical Collection Method Collection Time Re ceived Time Location / / Volume Laterality Blood 08/17/2014 5:00 PM STATION ENGINEER Ap Murry M.D. LAB BLOOD ADD-ON Performing Organization Address City/State/ZIP Code Phon e Number POWERCHART (ABNORMAL) CBC without Differential (08/17/2014 4:30 AM STATION ENGINEER) Analysis Performed At Patho logist Time Signature Leukocytes 17.7 (H) 3.5 - 10.5 POWERCHART X109L Erythrocytes 3.91 3.90 - POWERCHART 5.03 V0270L Hemoglobin 11.6 (L) 12.0 - POWERCHART 15.5 GDL Hematocrit 36.4 34.9 - POWERCHART 44.5 MCV 93.1 81.6 - POWERCHART 98.3 FL HX RDW 14.4 11.9 - POWERCHART 15.5 Platelet Count 200 150 - 450 POWERCHART X109L Specimen (Source) Anatomical Collection Method Collection Time Re ceived Time Location / / Volume Laterality Blood 08/17/2014 4:30 AM STATION ENGINEER Ap Murry M.D. LAB BLOOD ADD-ON Performing Organization Address City/[facility]/ZIP Code Phon e Number POWERCHART (ABNORMAL) BMP (Basic Metabolic Panel) (08/17/2014 4:30 AM STATION ENGINEER) Patholo gist Method Time Signature Sodium, S 138 135 - 145 POWERCHART MMOLL Potassium, S 3.2 (L) 3.5 - 5.1 POWERCHART MMOLL Chloride, S 100 98 - 107 POWERCHART MMO[facility] CO2 Total 24 22 - 29 POWERCHART MMOLL BUN (Blood Urea 16 6 - 24 MGDL POWERCHART Nitrogen), S Creatinine 1.2 (H) 0.6 - 1.1 POWERCHART MGDL Calcium, Total, 8.4 (L) 8.8 - 10.3 POWERCHART S MGDL Anion Gap 14 7 - 15 POWERCHART MMOLL HXeGFR (MDRD) 43.7 (L) >=60.0 POWERCHART MLMIN[facility] eGFR 53.0 (L) >=60.0 POWERCHART Black/ MLMINSA [place] Glucose 104 70 - 140 POWERCHART MGDL Specimen (Source) Anatomical Collection Method Collection Time Re ceived Time Location / / Volume Laterality Blood 08/17/2014 4:30 AM STATION ENGINEER Ap Murry M.D. LAB BLOOD ADD-ON Performing Organization Address City/State/ZIP Code Phon e Number POWERCHART documented in this encounter Visit Diagnoses Not on filedocumented in this encounter
--- OUTSIDE RECORDS SUMMARY | 2022-05-22 06:13 | XMS_ITS | Encounter Summary ---
:1950 Author Organization [facility] Address [address] [place] [address] Care Team Providers Name Role Phone Unavailable Primary Care Provider Unavailable Reason for Referral Outpatient (Routine) - Authorized Specialty Diagnoses / Procedures Referred By Contact Refer red To Contact Diagnoses Clinical Research Exam Mimi Sadler M.D. Procedures Bone Marrow Research Aspirate Add On Collection [address] [place] [id number] Referral ID Status Reason Start Date Expiration Date Visits V isits Requested Authorized [id number] Authorized 04/23/2022 04/23/2023 1 1 Reason for Visit Appointment Request (Routine) - Authorized Specialty Diagnoses / Procedures Referred By Contact Refer red To Contact Hematology Diagnoses Multiple Myeloma NOS Gammopathy Monoclonal Luci Croft M.D. [address] [place] [address] Referral ID Status Reason Start Date Expiration Date Visits V isits Requested Authorized [id number] Authorized 04/20/2022 04/20/2023 2 2 Encounter Details Date Type Department Care Team Description 04/23/2022 Clinical Support - Division of Tiffanie Negrete [facility] Hematology in J Exam (Primary Dx) [place], [place] [address] [facility] [address] [place] [id number] [phone] Social History Tobacco Use Types Packs/Day Years Used Date Smoking Tobacco: Never Sex Assigned at Date Recorded Not on file documented as of this encounter Plan of Treatment Scheduled Orders Name Type Priority Associated Diagnoses Order S jessenia [facility] [id number] [facility] Myeloma Lab Routine Clinical Resear ch Expected: Exam 04/23/2022 (Approximate), Expires: 2022 Miscellaneous Research, B Lab Routine Clinical Resear ch Expected: Exam 04/23/2022 (Approximate), Expires: 2022 Bone Marrow Research Procedures Routine Clinical Research Ex pected: Aspirate Add On Exam 04/23/2022 Collection (Approximate), Expires: 2022 documented as of this encounter Visit Diagnoses Diagnosis Clinical Research Exam - Primary documented in this encounter
[2022-05-22] MEDS: LACTATED RINGERS 1000 ML 1,000 ML 100 ML IV ×2 (06:30→10:02)
[2022-05-22] MEDS: BUPIVACAINE 0.25% 30 ML INJECTION (08:46)
--- NOTE | 2022-05-22 10:36 | P.GSOP_ITS ---
Operative Note Date of procedure: 05/22/22 Type of Procedure: Laparoscopic assisted right hemicolectomy Procedure Description: When I entered the operating room all ports were in place, a lysis of adhesions was performed and Dr. Sutton had begun dissection along the lateral white line of Toldt. I then assisted with the camera and retraction. We transitioned our dissection to the medial aspect and identified the ileo cecal pedicle. Dr. Sutton used the Harmonic device to circumferentially dissect out this vascular pedicle, again while I retracted the colon. A 60 mm vascular staple load was used to transect the vascular pedicle. There was a small pinpoint area of bleeding on the staple line, this was controlled with a 5 mm clip moving consultant. A branching vein was identified posterior to the pedicle. This was doubly ligated with 5 mm clips proximal and transected with the Harmonic distally. Once the pedicle was divided we continue with her medial dissection within the avascular plane just posterior to the mesentery. We carefully dissected off the mesentery from the retroperitoneum. During this portion of the procedure Dr. Sutton continued dissected with the Harmonic device. We stayed close to the colon, taking care not to injure the duodenum, which stayed out of our operative field. I then helped assist with retraction of the transverse colon as we began the dissection anterior within the omentum. It was difficult to identify the appro priate plane, but again we stayed close to the colon taking care not to injure any surrounding structures. The mesentery of the transverse colon was dissected with the Harmonic device. This was in part due to the difficulty of finding the appropriate plane. We continued our dissection along the hepatic flexure, taking down any hepatocolic ligaments. Dr. Sutton continued the dissection with the Harmonic device along the lateral wall, connecting her previously dissected plane. Once the lateral dissection was complete we turned our attention to the terminal ileum. The mesentery of the small bowel was partially dissected, in order to allow for appropriate mobilization. A grasper was placed on the cecum. We then turned to the open portion of the case. Dr. Sutton utilized the lateral aspect of her previous open cholecystectomy incision for incision. The skin was incised with a 15 blade scalpel. Dissection into subcutaneous tissue was carried out with electrocautery down to the anterior fascia. Previously placed permanent suture was identified and removed. The fascia and peritoneum was incised with cautery we entered the abdomen. Our insufflation was then evacuated. A small Josh wound retractor was placed within the incision. The grasper placed on the cecum was then used to identify the spasm, which was carefully pulled out with [place]cocks. There was a small area of bleeding on the small bowel mesentery. This was clamped and ligated with 2-[address] Sutton identified a portion of small bowel that was 10 cm from the ileocecal valve, as well as a portion of the mid transverse colon for transection. Both the small bowel and the transverse colon were stapled with an Endo-MITCHEL bowel load. The specimen was then passed off to the back table and ope ki for inspection. The large adenoma was identified and within the specimen, with adequate margins. I then assisted with retraction, while Dr. Sutton performed the cdnd-in-awta functional end-to-end anastomosis. An enterotomy was created approximately 1 cm away from the staple line on the anti mesenteric border. An 80 mm Endo-MITCHEL bowel load was placed within the arm of the small bowel and transverse colon. The specimens were lined up along the anti mesenteric border, taking care to align so there was no twisting of the mesentery. The anastomosis was created and the staple line examined, with hemostasis excellent. The common enterotomy was then closed with Lembert stitches of interrupted 3-0 silk suture. A crotch stitch of 3-0 silk suture was placed. The anastomosis was then placed back within the abdomen. The fascia was closed with running 0 Maxon suture. The abdomen was reinsufflated and the anastomosis identified. Hemostasis was excellent at the end of the case. The 12 mm port was closed with an 0 Vicryl stitch. All ports were removed under direct visualization. The port sites were closed with interrupted 4-0 Monocryl suture. The larger incision was closed in layers with interrupted 3 0 Vicryl and running 4-0 Monocryl stitch. ? Sterile dressings were then applied. ? The patient was then woken and transported to the recovery area in stable condition. ? The patient tolerated the procedure well. Findings: Large adenomatous mass of the cecum. Anesthesia: GETA Surgeon: Suyapa Sutton MD Co-Surgeon: Stephanie Dial MD Estimated blood loss (mL): 20 Condition: stable Disposition: PACU
--- NOTE | 2022-05-22 11:04 | W.ANESCHARGE ---
Anesthesia Charges Start Date/Time Anesthesia Start Date: 05/22/22 Anesthesia Start Time: 07:41 Stop Date/Time Anesthesia Stop Date: 05/22/22 Anesthesia Stop Time: 11:03 Summary Emergency: No Extremes of Age: Over 71-CPT 32763
--- NOTE | 2022-05-22 11:20 | P.GSOP_ITS ---
Operative Note Date of procedure: 05/22/22 Type of Procedure: 1. Laparoscopic right hemicolectomy. Procedure Description: After discussing the risks and benefits of the procedure, the patient signed informed consent.? The operative site was marked and the patient was brought to the operating room and placed on the operating table in supine position.? Care was taken to pad the patient's pressure points.?? The patient was then intubated by anesthesia and a TAP block was administered bilaterally by anesthesia. The operative site was then prepped and draped in the usual sterile fashion.? A time-out was then performed. ? A 5-mm laparoscopy port was placed in the left upper quadrant guided by a 5-mm laparoscope placed into a translucent trochar.? Passage through the layers of the abdominal wall was visualized with the laparoscope.? A pneumoperitoneum was established. A 30-degree 5-mm laparoscope was advanced into the abdomen. The abdomen was briefly surveyed, and stomach adhesions to the falciform ligament were noted. A 12-mm port and a 5-mm port were placed in the left low quadrant and suprapubically, respectively, under direct visualization by laparoscope. An additional 5 mm port was placed near umbilicus. Left upper quadrant entrance po rt was then examined intraabdominally by placing the camera through the left lower quadrant port and no intraabdominal injury was seen.? Minimal lysis of adhesions was done to mobilize omentum and the stomach off the falciform ligament. This was done with Harmonic scalpel. The cecum was identified and was very redundant. The cecum was retracted medially. The appendix was surgically absent. The White line of Toldt was divided with Harmonic scalpel near the cecum to create the correct retroperitoneal plane.? I then proceeded with a medial to lateral dissection. The cecum was grasped and retracted towards the abdominal wall.? The ileocolic vascular pedicle was identified and skeletonized from the mesenteric fat with Harmonic scalpel.? The ileocolic vessels were then stapled with a vascular staple load of Endo-MITCHEL stapler.?Bleeding was seen from the staple line and this was controlled with 5 mm clips.? Dissection was then carried towards the liver.? Colonic mesentery was divided with Harmonic scalpel until the inferior portion of the hepatic flexure of the colon was reached.? We then proceeded with mobilizing the colon from the liver.? The transverse colon and hepatic flexure were reflected caudad and gastrocolic ligament was divided with the Harmonic scalpel. This dissection was carried towards the lateral abdominal wall in the relatively avascular plane. Colonic mesentery of the hepatic flexure was also identified?and divided with Harmonic scalpel. The right branch of the middle colic artery and vein were clipped with 5 mm clips on the patient's side and divided with Harmonic scalpel on the specimen side. Duodenum was not identified during this dissection but care was taken not to injure it.? When the transverse colon and hepatic flexure were fairly mobile and dissected off retroperitoneum, we then extended our dissection from the hepatic flexure towards the cecum along the lateral abdominal wall.? This was done with Harmonic scalpel.? When the colon was mobile, I turned my attention to the terminal ileum.? The terminal ileum was fairly mobile with no adhesions to the lateral abdominal wall.? Enough length of the terminal ileum was seen to be available for extracorporeal anastomosis, and we decided to proceed extra abdominally. The patient was flattened and a right subcostal incision was made through a previously well-healed inferior portion of the open cholecystectomy incision. Anterior fascia was divided with cautery.? Abdominal wall musculature was fairly thinned out and scar tissue was noted from previous surgery. Posterior sheath and peritoneum were grasped and the abdomen was entered with cautery.? The abdomen was then deflated.? The Josh retractor was placed into the incision.? The dissected right colon and cecum were exteriorized.? The right colon and the terminal ileum were very mobile.? We then proceeded with extracorporeal [id number] functional end-to-end anastomosis. Small bowel mesentery near the ileocecal valve was divided with clamps and Vicryl ties. A blue load of MITCHEL stapler was used to divide the terminal ileum and ascending colon at the level of proximal transverse colon. The transverse colon and distal terminal ileum was then lined up for anastomosis.? An enterotomy was made near the staple line with cautery.? A colotomy was also made near the staple line with cautery.? The handles of the MITCHEL stapler were advanced into the small intestine and colon.? The [id number]-gf-[id number] anastomosis was then made with the 100 blue load of MITCHEL stapler.? The staple line was examined from the inside and no active bleeding was seen.? The common enterotomy was then closed with interrupted 3-0 silk pop-off sutures using Lembert sutures.? A crotch stitch was placed with 3-0 silk suture as well.? The anastomosis was palpated and was patent.? Anastomosis appeared well perfused.? The anastomosis was then placed into the abdomen.? The right colon was opened on the back table and cecal polyp was identified. The right colon was sent to pathology. All the dirty instruments and towels were removed.? The Josh retractor was removed.? The surgeon and assistants changed gloves to new gloves.? We then proceeded with abdominal closure. The peritoneum and posterior sheath were fused with the anterior fascia.? The anterior fascia was then closed with 2 running 0-0 Maxon sutures.?The abdomen was then insufflated again.? The anastomosis was examined intra-abdominally.? No bleeding was identified in the surgical field.? The anastomosis appeared to be well perfused.? The abdomen was irrigated and no significant bleeding was noted in the surgical site.? Omentum was placed over the right-sided abdomen and over anastomosis.? The fascia of the left lower quadrant 12 mm port incision was closed with 0-0 Vicryl sutures with Jonathon-Michael needle under direct visualization. The 5 mm ports were removed under direct visualization and pneumoperitoneum was reduced through a left upper quadrant incision. The dermis of the right subcostal incision was closed with interrupted 3-0 Vicryl sutures.? The skin of all incisions was closed with 4-0 Monocryl stitches.? Sterile dressings were placed over the incisions. All counts were correct at the end of the case. Patient tolerated this procedure well and was transferred to PACU in stable condition. Anesthesia: GETA Surgeon: Suyapa Sutton MD Co-Surgeon: Stephanie Dial MD Estimated blood loss (mL): 20 Condition: stable Disposition: PACU
[2022-05-22] MEDS: HYDROmorphone 0.5 mg/0.5 ml inj IVP ×2 (12:15→13:13)
--- NOTE | 2022-05-22 12:17 | W.PM.NB ---
Nerve Block Nerve Block Time Seen by Provider: 07:30 Date Seen: 05/22/22 Type of block requested by surgeon for post-operative analgesia: TAP Side: bilateral Time out performed: Yes Verification of patient name: Yes Verification of date of : Yes Site marking: site marked Name of person performing procedure: José Miguel Continuous monitoring Was continuous monitoring of O2 sat, B/P, cardiac rehabilitation program director, recorded every 15 minutes?: Yes Procedure Checklist: sterile prep, needles and gloves Ultrasound guided. Images saved: Yes Medications given in 5ml increments after negative aspiration: Marcaine %: 0.25 mL: 30 Needle gauge: 20 and Exparel mL: 10 Patient tolerated procedure well: Yes Additional comments: Needle noted adjacent to nerve Block Charges Block Charge (with Pro Fee): TAP Bilateral Use of Ultrasound Machine for Block: Yes- US Guidance/pain block
--- NOTE | 2022-05-22 12:18 | W.ANESCHARGE ---
Anesthesia Charges Start Date/Time Anesthesia Start Date: 05/22/22 Anesthesia Start Time: 07:41 Stop Date/Time Anesthesia Stop Date: 05/22/22 Anesthesia Stop Time: 11:03 Summary Emergency: No Extremes of Age: Over 71-CPT 78100
[2022-05-22] MEDS: ACETAMINOPHEN 325 MG TABLET 650 MG PO (14:12)
[2022-05-22] MEDS: MORPHINE 2 MG/ML inj IVP ×3 (15:44→22:32)
[2022-05-22] MEDS: LACTATED RINGERS 1000 ML 1,000 ML 75 ML IV (17:25)
--- NOTE | 2022-05-22 17:32 | PC.NURSE ---
Addendum entered by Ethan Suárez RN 05/22/22 17:43: BS hypoactive. No flatus yet. Pt denies nausea. calming aromatherapy patch applied for comfort. Original Note: pain 10 upon arrival from PACU. Dilaudid given x2 and oral tylenol and pain remained unchanged. Pt did recieve tap block per report in surgery. Dr. Sutton contacted and new order for morphine recieved. This was effective for pt as pain is now reported at 09/11. Afebrile. LS CTA. up to void in BR clear yellow urine at 1630. pt voided 100 cc's. Steady on feet and bracing will pillow - assisted with 2 nurses for initial time up in room. Pt ok to ambulate with Ax1 and GB. LR running at 75ml/hr. NPO - chips and sips ok. BS hypoactive. lap sites intact. Dtr Cally and Brother Orlando at bedside this afternoon.
[2022-05-22] MEDS: HYDROCODONE-ACETAMIN 5-325 MG 1 TAB PO (22:32)
[2022-05-23] VITALS (7 sets, daily range): BP systolic 136–148; BP diastolic 54–62; PULSE 79–87; RESP 16–18; TEMP 36.9–37.9; O2SAT 92–97
[2022-05-23] MEDS: MORPHINE 2 MG/ML inj IVP (03:31)
--- NOTE | 2022-05-23 06:24 | PC.NURSE ---
Alert and oriented x4. Assist of one with all cares. Vital signs stable. Low grade fever overnight. Pain managed with Hydrocodone and Morphine. Bowel sounds active all quadrants. Denies any other concern at this time
[2022-05-23] MEDS: LACTATED RINGERS 1000 ML 1,000 ML 75 ML IV ×2 (07:06→20:17)
[2022-05-23] MEDS: OMEPRAZOLE 20 MG CAPSULE DR PO (07:06)
--- NOTE | 2022-05-23 09:37 | P.GSPN_ITS ---
Subjective Subjective Date Seen: 05/23/22 Interval history: Patient is doing well postoperatively. She denies any nausea vomiting. She is not passing gas. She walked to the bathroom. Her pain was better controlled with morphine. Exam 2 Narrative: Exam Narrative: Abdomen: Soft, not distended, tender to palpation on the left side, surgical incisions are healing well with no erythema. Const: Vital Signs, click to edit/add: Vital Signs - 24 hr 05/22/22 11:00 05/22/22 11:05 05/22/22 11:10 Temperature 97.9 F Pulse Rate 53 L 52 L 53 L Pulse Rate [Pulse Oximeter] Respiratory Rate 20 20 18 Blood Pressure 136/60 133/59 L 120/53 L Blood Pressure [Ri ght Arm] Pulse Oximetry 97 99 100 Oxygen Delivery Me thod OxyMask OxyMask OxyMask Oxygen Flow Rate 5 5 05/22/22 11:15 05/22/22 11:20 05/22/22 11:25 Temperature 98.2 F Pulse Rate 47 L 51 L 48 L Pulse Rate [Pulse Oximeter] Respiratory Rate 20 20 20 Blood Pressure 139/61 148/66 H 148/66 H Blood Pressure [Ri ght Arm] Pulse Oximetry 100 100 97 Oxygen Delivery Me thod OxyMask Room Air OxyMask Room Air Oxygen Flow Rate 3 05/22/22 11:30 05/22/22 11:35 05/22/22 11:45 Temperature 97.0 F L Pulse Rate 48 L 47 L 47 L Pulse Rate [Pulse Oximeter] Respiratory Rate 20 20 14 Blood Pressure 147/63 H 146/61 H Blood Pressure [Ri ght Arm] 146/63 H Pulse Oximetry 96 96 Oxygen Delivery Me thod Room Air Room Air Room Air Oxygen Flow Rate 0 05/22/22 12:00 05/22/22 12:15 05/22/22 12:30 Temperature 97.0 F L 96.5 F L Pulse Rate Pulse Rate [Pulse Oximeter] 50 L 48 L 52 L Respiratory Rate 16 18 18 Blood Pressure Blood Pressure [Ri ght Arm] 152/62 H 153/63 H 143/58 H Pulse Oximetry 97 96 95 Oxygen Delivery Me thod Room Air Room Air Room Air Oxygen Flow Rate 0 0 0 05/22/22 12:45 05/22/22 15:00 05/22/22 13:30 Temperature 96.8 F L 98 F Pulse Rate Pulse Rate [Pulse Oximeter] 51 L 97 58 L Respiratory Rate 18 18 Blood Pressure Blood Pressure [Ri ght Arm] 146/58 H 136/54 L Pulse Oximetry 95 95 Oxygen Delivery Me thod Room Air Room Air Oxygen Flow Rate 0 0 05/22/22 13:00 05/22/22 14:30 05/22/22 15:30 Temperature 96.8 F L 98 F 98.3 F Pulse Rate Pulse Rate [Pulse Oximeter] 65 63 72 Respiratory Rate 18 16 18 Blood Pressure Blood Pressure [Ri ght Arm] 145/63 H 136/54 L 162/65 H Pulse Oximetry 95 94 100 Oxygen Delivery Me thod Room Air Room Air Room Air Oxygen Flow Rate 0 0 0 05/22/22 16:30 05/22/22 17:30 05/22/22 19:00 Temperature 98.4 F 98.5 F 100.4 F H Pulse Rate Pulse Rate [Pulse Oximeter] 87 85 96 Respiratory Rate 18 16 16 Blood Pressure Blood Pressure [Ri ght Arm] 153/81 H 145/57 H 159/63 H Pulse Oximetry 92 92 95 Oxygen Delivery Me thod Room Air Room Air Room Air Oxygen Flow Rate 0 0 0 05/22/22 23:00 05/22/22 23:00 05/23/22 03:00 Temperature 100.7 F H 100.2 F H Pulse Rate Pulse Rate [Pulse Oximeter] 96 87 79 Respiratory Rate 16 16 16 Blood Pressure Blood Pressure [Ri ght Arm] 148/58 H 147/57 H Pulse Oximetry 96 96 Oxygen Delivery Me thod Room Air Room Air Oxygen Flow Rate 0 0 05/23/22 08:00 05/23/22 08:00 Temperature 99.4 F Pulse Rate Pulse Rate [Pulse Oximeter] 84 84 Respiratory Rate 16 16 Blood Pressure Blood Pressure [Ri ght Arm] 136/54 L Pulse Oximetry 96 Oxygen Delivery Me thod Room Air Oxygen Flow Rate 0 Progress Note: A&P Assessment and plan (1) S/P right hemicolectomy: Problem details: 72-year-old female s/p laparoscopic right hemicolectomy POD 1. Patient is doing well. Will advance her diet to clears. Patient will be started on Lovenox for DVT prophylaxis. I discussed with her to ambulate today. Status: Acute
[2022-05-23] MEDS: HYDROCODONE-ACETAMIN 5-325 MG 1 TAB PO ×2 (12:09→20:18)
[2022-05-23] MEDS: IBUPROFEN 600 MG TABLET PO (12:09)
[2022-05-23] MEDS: ENOXAPARIN 40 MG/0.4 ML INJ SUBCUT (12:12)
--- NOTE | 2022-05-23 18:47 | PC.NURSE ---
End of shift. pt has been very pleasant. abd pain 1-12/10 she got po norco and ibuprofen for pain, she is up ab hilaria. she is on clears. she is drinking and voiding. active ice to the abd. 3 lap site and 1 dressing that is C/D/I. IV is patent. BS are active.
[2022-05-23] MEDS: MAG HYDROX/ALUMINUM HYD/SIMETH 30 ML ORAL.SUSP 15 ML PO (21:30)
[2022-05-24 03:00] VITALS: BP 158/66; PULSE 92; RESP 18; TEMP 37.3; O2SAT 92
--- NOTE | 2022-05-24 06:24 | PC.NURSE ---
Alert and oriented x4. Vitals stable overnight. Received Fletcher for pain and tolerating fine. Self ambulatory in the room. Abdominal sites looking clean and intact. Denies any concerns
[2022-05-24] MEDS: OMEPRAZOLE 20 MG CAPSULE DR PO (06:39)
[2022-05-24] MEDS: LACTATED RINGERS 1000 ML 1,000 ML 75 ML IV (06:40)
[2022-05-24 07:43] VITALS: TEMP 37.1
[2022-05-24] MEDS: HYDROCODONE-ACETAMIN 5-325 MG 1 TAB PO (07:43)
[2022-05-24] MEDS: IBUPROFEN 600 MG TABLET PO (07:44)
[2022-05-24 08:11] VITALS: BP 161/74; PULSE 87; RESP 16; TEMP 37.2; O2SAT 93
[2022-05-24 08:12] VITALS: PULSE 87; RESP 16
[2022-05-24] MEDS: ENOXAPARIN 40 MG/0.4 ML INJ SUBCUT (11:28)
--- NOTE | 2022-05-24 12:16 | P.DS_ITS ---
DS: Providers Provider Date Seen: 05/24/22 Date of admission: 05/22/22 06:08 Primary care physician: RIZWAN Becerra Admitting Clinician: Suyapa Sutton MD Attending Physician on discharge: Suyapa Sutton MD DS: Diagnosis Discharge Diagnosis (1) S/P right hemicolectomy: Status: Acute DS: Summary Time Spent with Patient Time attestation: Total time spent providing and/or coordinating discharge services: Exam Narrative: Exam Narrative: Abdomen: Soft, not distended, minimally tender to palpation in the right mid abdomen, surgical incisions are healing well with no erythema. The suprapubic surgical incision dressing was removed and Steri-Strips came off. There was a small clot overlying the incision. Const: Vital Signs, click to edit/add: Vital Signs - 24 hr 05/23/22 16:10 05/23/22 15:10 05/23/22 19:00 Temperature 98.4 F 99.2 F Pulse Rate [Pulse Oximeter] 85 85 85 Respiratory Rate 18 18 18 Blood Pressure [Ri ght Arm] 136/58 L 142/55 H Pulse Oximetry 94 92 Oxygen Delivery Me thod Room Air Room Air Oxygen Flow Rate 0 0 05/23/22 23:00 05/23/22 23:00 05/24/22 03:00 Temperature 99.2 F 99.1 F Pulse Rate [Pulse Oximeter] 87 87 92 Respiratory Rate 18 18 18 Blood Pressure [Ri ght Arm] 145/58 H 158/66 H Pulse Oximetry 92 92 Oxygen Delivery Me thod Room Air Room Air Oxygen Flow Rate 0 0 05/24/22 07:43 05/24/22 08:11 05/24/22 08:12 Temperature 98.8 F 99.0 F Pulse Rate [Pulse Oximeter] 87 87 Respiratory Rate 16 16 Blood Pressure [Ri ght Arm] 161/74 H Pulse Oximetry 93 Oxygen Delivery Me thod Room Air Oxygen Flow Rate 0 Discharge Plan Discharge Disposition: Home, Self-Care Date of Admission: 05/22/22 06:08 Attending Provider on Discharge: Suyapa Sutton Primary Care Provider: Monica Santos Condition: Stable Anticipated Discharge Date/Time: 05/24/22 18:18 Discharge Medications: New hydrocodone-acetaminophen 5-325 mg tablet 1 tab PO Q6H PRN (Reason: pain) Qty: 30 0RF Continued omeprazole magnesium [Prilosec OTC] 20 mg tablet,delayed release (DR/EC) 20 mg PO QDAY Qty: 90 4RF Excedrin Extra Strength 250-250-65 mg tablet 2 tab PO Q6H PRN cholecalciferol (vitamin D3) 10 mcg (400 unit) capsule 10 mcg PO QDAY Discharge Orders: Discharge Order (Routine); Ordered 05/24/22 Ordered By: Suyapa Sutton Patient Education: Surgical Site Infections (GEN) Activity Level: No strenuous activity Discharge Diet: Regular Diet Detail: advance diet slow Follow Up Appointments: Suyapa Sutton MD [Staff Physician] - Forms: [facility] Info Instructions Discharge Comments: if pt doing well today and tolerated reg diet, ok to d/c home
[2022-05-24 12:53] VITALS: BP 159/70; PULSE 77; RESP 16; TEMP 37.2; O2SAT 97
[2022-05-24 13:27] VITALS: BP 146/61; PULSE 47; RESP 16; TEMP 37.2
--- NOTE | 2022-05-24 15:50 | PC.NURSE ---
Discharge.? pt is very pleasant. ? abd pain 1-11/09 ? she got po [place] and ibuprofen for pain,?ADAT she had food with no increase in pain BS are good and she is passing gas. she is up ab hilaria.?? she is eating, drinking and voiding, with no problems. ? active ice to the abd. ? 4 lap site and 1 dressing that is C/D/I. ?steri strips replaced per MD instructions. SL is patent, it was d/c intact. ? went over discharge packet with pt. went over medication. appointment. instructions and education. pt went over and signed personal belonging sheet. she got a w/c ride to truck and was helped in to truck. she took all belongings and paper work with her.
--- NOTE | 2022-07-24 12:27 | ONC.NURNOTE ---
Patient called wanting to have MM labs done at [facility] so that she wouldn't have to go to [facility] at 7am for labs and then just go to MD appointment at 1030 in [facility]. Let patient know that those labs take at least a 5 day turnaround because we send them out so they wouldn't have results. Patient having a hard time with communication at [facility] but will talk with MD there on Saturday and let them know her plans and that she would like to get her treatment in since it's closer. Explained to her that [facility] is NOT a [facility] but [facility] and that [facility] has contracted with [facility] and so there are [facility]cologist/waiver analyst here that can co-manage her care.
== END 2022-05-24 15:45 | disposition home or self-care (01) | DRG 330 ==
PROVIDERS: Admitting Provider Surgery; PCP Physician Assistant; Visit Provider Surgery
PROC: 0DTF4ZZ Resection of Right Large Intestine, Percutaneous Endoscopic Approach (ICD-10-PCS; principal; 2022-05-22 07:30)
DX: D12.6 Benign neoplasm of colon, unspecified (principal); C91.10 Chronic lymphocytic leukemia of B-cell type not having achieved remission; I10 Essential (primary) hypertension; E78.5 Hyperlipidemia, unspecified
CPT/HCPCS: 00790; 00840; 64488; 76942; 88309; 94761; 99100; A9270; C9290; J0330; J1100; J1170; J1335; J1650; J2270; J2405; J2704; J2710; J3010; J3490; J7120

== ENCOUNTER 2022-08-09 08:15 | Outpatient (RCR) | payer MEDICARE, BC, SELFPAY ==
--- NOTE | 2022-04-19 13:08 | URNOTE ---
Received request for prior auth for Bortezomib ([id number]). Pt has medicare and [employer]. Prior auth in not required as services are based on medical necessity and follow medicare guidelines.
--- NOTE | 2022-04-19 14:00 | ONC.NURNOTE ---
PA submitted via [employer] left message for patient to call-for update
--- NOTE | 2022-04-19 16:06 | ONC.NURNOTE ---
Cytoxan PA approved under Medicare Part B 01/19/22-04/19/22 [facility] contacted
--- NOTE | 2022-04-24 16:00 | ONC.NURNOTE ---
Patient met with [facility] Dr. Sotelo for a referral on 2nd opinion and at this time she is leaning towards Dr. Sotelo and is waiting for her recommendations on May 31 or . All treatment on hold and patient will call us next week with the plan.
== END 2022-10-15 23:59 | disposition home or self-care (01) ==
LOC: CCIC 08:15
PROVIDERS: PCP Physician Assistant; Visit Provider Clinical Nurse Specialist
DX: C91.10 Chronic lymphocytic leukemia of B-cell type not having achieved remission (principal)
CPT/HCPCS: 99213; 99215; 99232

== ENCOUNTER 2023-03-21 10:30 | Outpatient (RCR) | payer MEDICARE, BC, SELFPAY ==
[2022-11-22 11:10] LABS: Basophils Percent Auto 0.5 % (0.0-3.0); Eosinophils Percent Auto 1.3 % (0.0-7.0); Hematocrit 39.7 % (33.0-51.0); Hemoglobin* 12.9 gm/dL (12.0-16.0); Immature Granulocytes Pct Auto 0.4 %; Mean Corpuscular HGB Conc 33 gm/dL (32-36); Mean Corpuscular Hemoglobin 31 pg (26-34); Mean Corpuscular Volume 94 fL (80-100); Monocytes Percent Auto 3.9 % (0.0-11.0); Neutrophils Percent Auto 29.9 % (42.0-72.0); Platelet Count* 230 K/uL (140-440); RDW Coefficient of Variation % 12.9 % (11.5-15.5); Red Blood Count 4.22 m/uL (4.00-5.20); White Blood Count* 11.95 K/uL (4.50-11.00)
[2022-11-22 11:23] LABS: Slide Review Reflex Yes
[2022-11-22 12:18] LABS: Slide Review Acceptable Review (Acceptable)
[2022-11-22 15:44] LABS: Chloride* 105 mmol/L (96-114); Potassium* 4.3 mmol/L (3.6-5.1); Sodium* 139 mmol/L (135-149)
[2022-11-22 15:47] LABS: Blood Urea Nitrogen* 19 mg/dL (7-30); Carbon Dioxide* 30 mmol/L (20-32); Estimated Glomerular Filt Rate 60 ml/min; Glucose* 95 mg/dL (60-115)
[2022-11-26 02:00] LABS: Albumin 4.35 g/dL (3.75-5.01); Alpha 1 Globulin 0.35 g/dL (0.19-0.46); Alpha 2 Globulin 0.72 g/dL (0.48-1.05); Immunofixation IFE Done; Immunoglobulin A 32 mg/dL (68-408); Immunoglobulin G 2060 mg/dL (768-1632); Immunoglobulin M <10 mg/dL (35-263); Kappa Qnt Free Light Chains 9.86 mg/L (3.30-19.40); Kappa/Lambda Light Chain Ratio 0.07 (0.26-1.65); Lambda Qnt Free Light Chains 148.08 mg/L (5.71-26.30); Monoclonal Protein 1.86 g/dL
[2023-03-13 15:48] LABS: Albumin 3.96 g/dL (3.75-5.01); Alpha 1 Globulin 0.36 g/dL (0.19-0.46); Immunofixation IFE Done; Immunoglobulin A 34 mg/dL (68-408); Immunoglobulin G 2014 mg/dL (768-1632); Immunoglobulin M 11 mg/dL (35-263); Kappa Qnt Free Light Chains 9.49 mg/L (3.30-19.40); Kappa/Lambda Light Chain Ratio 0.05 (0.26-1.65); Lambda Qnt Free Light Chains 183.37 mg/L (5.71-26.30); Monoclonal Protein 1.65 g/dL; Total Protein, Serum 7.3 g/dL (6.3-8.2)
== END 2023-05-21 23:59 | disposition home or self-care (01) ==
LOC: CCIC 10:30
PROVIDERS: Clinical Nurse Specialist; Internal Medicine Hematology & Oncology; PCP Physician Assistant; Referring Provider Physician Assistant; Visit Provider Internal Medicine Hematology & Oncology
DX: C91.10 Chronic lymphocytic leukemia of B-cell type not having achieved remission (principal); D47.2 Monoclonal gammopathy; D49.89 Neoplasm of unspecified behavior of other specified sites
CPT/HCPCS: 36415; 80048; 82784; 83520; 84155; 84165; 85025; 86334; 99212; 99214; 99215

== ENCOUNTER 2023-06-19 14:44 | Outpatient (RCR) | payer MEDICARE, BC, SELFPAY ==
[2023-06-12 11:47] LABS: Albumin* 4.2 g/dL (3.3-5.0)
[2023-06-12 11:48] LABS: Chloride* 105 mmol/L (96-114); Sodium* 138 mmol/L (135-149)
[2023-06-12 11:50] LABS: Anion Gap 6 mEq/L (7-15); Aspartate Amino Transferase* 38 U/L (12-35); Bilirubin Total* 0.4 mg/dL (0.1-1.5); Carbon Dioxide* 27 mmol/L (20-32); Creatinine* 1.1 mg/dL (0.5-1.5); Estimated Glomerular Filt Rate 53 ml/min; Total Protein* 8.2 g/dL (6.0-8.3)
[2023-06-12 11:51] LABS: Alanine Aminotransferase* 23 U/L (4-35); Alkaline Phosphatase* 59 U/L (40-150); Blood Urea Nitrogen* 24 mg/dL (7-30); Calcium* 8.9 mg/dL (8.4-10.6); Glucose* 106 mg/dL (60-115); Lactate Dehydrogenase* 204 U/L (120-246)
[2023-06-12 11:56] LABS: Basophils Absolute Auto 0.05 K/uL (0.00-0.30); Basophils Percent Auto 0.5 % (0.0-3.0); Eosinophils Absolute Auto 0.16 K/uL (0.00-0.50); Eosinophils Percent Auto 1.5 % (0.0-7.0); Hematocrit 37.9 % (33.0-51.0); Hemoglobin* 12.2 gm/dL (12.0-16.0); Immature Granulocytes Abs Auto 0.02 K/uL (0.00-0.30); Immature Granulocytes Pct Auto 0.2 %; Lymphocytes Percent Auto 54.6 % (20-44); Mean Corpuscular HGB Conc 32 gm/dL (32-36); Mean Corpuscular Hemoglobin 31 pg (26-34); Mean Corpuscular Volume 97 fL (80-100); Monocytes Percent Auto 5.8 % (0.0-11.0); Neutrophils Percent Auto 37.4 % (42.0-72.0); Platelet Count* 233 K/uL (140-440); RDW Coefficient of Variation % 12.4 % (11.5-15.5); Red Blood Count 3.89 m/uL (4.00-5.20); Slide Review Reflex No; White Blood Count* 10.66 K/uL (4.50-11.00)
[2023-06-15 11:58] LABS: Albumin 4.02 g/dL (3.75-5.01); Alpha 1 Globulin 0.36 g/dL (0.19-0.46); Alpha 2 Globulin 0.74 g/dL (0.48-1.05); Immunofixation IFE Done; Immunoglobulin A 32 mg/dL (68-408); Immunoglobulin G 2042 mg/dL (768-1632); Immunoglobulin M 11 mg/dL (35-263); Kappa Qnt Free Light Chains 11.31 mg/L (3.30-19.40); Kappa/Lambda Light Chain Ratio 0.06 (0.26-1.65); Lambda Qnt Free Light Chains 180.17 mg/L (5.71-26.30); Monoclonal Protein 1.76 g/dL; Total Protein, Serum 7.6 g/dL (6.3-8.2)
== END 2023-12-09 23:59 | disposition home or self-care (01) ==
LOC: CCIC 14:44
PROVIDERS: Referring Provider Physician Assistant; Visit Provider Internal Medicine Hematology & Oncology
DX: C91.10 Chronic lymphocytic leukemia of B-cell type not having achieved remission (principal); D49.89 Neoplasm of unspecified behavior of other specified sites; D47.2 Monoclonal gammopathy
CPT/HCPCS: 36415; 80053; 82784; 83520; 83615; 84155; 84165; 85025; 86334; 99212; 99214